=== PATIENT | male | born 1990 | race African-American/Black ===

== ENCOUNTER 2021-06-10 12:44 | Emergency (ER) | payer MEDICAID, OTHER ==
[~2021-06-10] VITALS: Ht 188 cm; Wt 90.7 kg
[2021-06-10 12:49] VITALS: BP 150/110
--- NOTE | 2021-06-10 12:56 | NUR ---
PT W/C ASSISTED TO BED 9.
--- NOTE | 2021-06-10 12:59 | NUR ---
30 y/o M BIB self from home c/o mid abdomen pain x 2 days with associated nausea and vomiting. Patient A&Ox4, ambulatory, states symptoms worsen yesterday. Patient reports mid abdomen and epigastric pain 10/10, aching/constant, non-radiating worsening after meals. Mid abdomen tenderness noted. Alleviates with position changes. Pt denies fever, chills, dysuria, back pain, diarrhea, constipation, urinary symptoms. States seeing PCP tomorrow and colonoscopy scheduled on 06/25/21. Reports Haldol and Benadryl at 0700 with temporary relief. Bed locked in lowest position, side rails x 1. PMH: Denies "undiagnosed" Meds: haldol, benadryl Allergies: PCN Sx: G-tube 2019
[2021-06-10] MEDS ORDERED: MORPHINE SULFATE 4 MG/ML SYR IVP ONE (13:20)
[2021-06-10] MEDS ORDERED: ONDANSETRON 4 MG/2 ML VIAL IVP ONE (13:20)
--- NOTE | 2021-06-10 13:43 | NUR ---
LAB AT BEDSIDE
[2021-06-10 13:52] LABS: BASOPHILS % (AUTO) 0.3 % (0.0-2.0); EOSINOPHILS % (AUTO) 0.1 % (0.0-4.0); HEMOGLOBIN 14.9 g/dL (12.0-18.0); LYMPHOCYTES # (AUTO) 1.2 K/uL (2.0-11.5); LYMPHOCYTES % (AUTO) 16.6 % (20.5-51.1); MEAN CORPUSCULAR HEMOGLOBIN 32 pg (27-31); MEAN CORPUSCULAR HGB CONC 35 g/dL (33-37); MEAN CORPUSCULAR VOLUME 91.1 fL (80-94); MONOCYTES # (AUTO) 0.4 K/uL (0.8-1.0); NEUTROPHILS # (AUTO) 5.4 K/uL (1.8-7.7); PLATELET COUNT (AUTO) 246 K/uL (140-450); RED BLOOD CELL COUNT(AUTO) 4.73 MIL/uL (4.20-6.10); RED CELL DISTRIBUTION WIDTH 13.4 % (11.6-13.7)
--- NOTE | 2021-06-10 13:55 | NUR ---
Dr. Waters made aware pain remains. New orders to be placed.
--- NOTE | 2021-06-10 13:58 | NUR ---
Patient transported to CT by WC
[2021-06-10] MEDS ORDERED: DICYCLOMINE HCL LIQUID 20 MG, ALUMINUM HYD/MAG/SIMETHICONE 30 ML, LIDOCAINE VISCOUS 2% ... PO ONE ×3 (14:00)
[2021-06-10] MEDS ORDERED: ALUMINUM HYD/MAG/SIMETHICONE 30 ML UDC ONE (14:00)
[2021-06-10] MEDS ORDERED: DICYCLOMINE HCL LIQUID 10 MG/5 ML UDC ONE (14:00)
--- NOTE | 2021-06-10 14:08 | NUR ---
PT BACK FROM CT WITH WHEELCHAIR
[2021-06-10 14:15] LABS: ANION GAP 11.9 (8-16); CARBON DIOXIDE 25.5 mmol/L (21-32); POTASSIUM 3.4 mmol/L (3.5-5.1); TOTAL BILIRUBIN 0.4 mg/dL (0.0-1.0)
--- NOTE | 2021-06-10 14:45 | NUR ---
Patient states pain at 10/10. Dr. Mcnally made aware.
[2021-06-10] MEDS ORDERED: diphenhydrAMINE 50 MG/ML VIAL IVP ONE (14:50)
[2021-06-10] MEDS ORDERED: HALOPERIDOL IM 5 MG/ML VIAL IM ONE (14:50)
[2021-06-10 14:59] VITALS: BP 125/90
[2021-06-10 15:01] LABS: APPEARANCE,URINE SL CLOUDY (CLEAR); BILIRUBIN,URINE NEGATIVE (NEGATIVE); BLOOD, URINE NEGATIVE (NEGATIVE); COLOR,URINE YELLOW (YELLOW); LEUKOCYTE ESTERASE ,URINE NEGATIVE (NEGATIVE); NITRITE, URINE NEGATIVE (NEGATIVE); PH,URINE 8.5 (5.0-9.0); UGLUCOSE NEGATIVE (NEGATIVE)
--- NOTE | 2021-06-10 15:54 | NUR ---
Patient reports + relief to pain. 0/10 at this time denies nausea. VSS.
--- NOTE | 2021-06-10 15:58 | NUR ---
IV removed, catheter intact and site benign. Applied folded 4x4 gauze and tape to stop bleeding.
--- NOTE | 2021-06-10 15:59 | NUR ---
Patient discharged with v/s stable. Written and verbal after care instructions given and explained. Patient verbalized understanding. Ambulatory with steady gait. All questions addressed prior to discharge. Advised to follow up with PMD. CT scan and blood work results provided.
== END 2021-06-10 15:59 | disposition home or self-care (01) ==
LOC: MED 12:44
DX: R11.15 Cyclical vomiting syndrome unrelated to migraine (principal); F12.90 Cannabis use, unspecified, uncomplicated; Z98.890 Other specified postprocedural states; Z88.0 Allergy status to penicillin
CPT/HCPCS: 36415; 74176; 80053; 81003; 83690; 85025; 96372; 96374; 96375; 99285; J1200; J1630; J2270; J2405

== ENCOUNTER 2021-06-12 06:03 | Emergency (ER) | payer MEDICAID ==
[~2021-06-12] VITALS: Ht 188 cm; Wt 92.5 kg
[2021-06-12 06:13] VITALS: BP 113/77
--- NOTE | 2021-06-12 06:15 | NUR ---
PT AMBULATED TO BED #9
[2021-06-12] MEDS ORDERED: MORPHINE SULFATE 4 MG/ML SYR IVP ONE (06:30)
[2021-06-12] MEDS ORDERED: METOCLOPRAMIDE 10 MG/2 ML INJ VIAL IVP ONE (06:30)
[2021-06-12] MEDS ORDERED: diphenhydrAMINE 50 MG/ML VIAL IVP ONE (06:30)
[2021-06-12 07:19] LABS: BASOPHILS % (AUTO) 0.4 % (0.0-2.0); EOSINOPHILS % (AUTO) 0.2 % (0.0-4.0); HEMATOCRIT 45.6 % (36-52); HEMOGLOBIN 15.7 g/dL (12.0-18.0); LYMPHOCYTES # (AUTO) 1.8 K/uL (2.0-11.5); LYMPHOCYTES % (AUTO) 21.8 % (20.5-51.1); MEAN CORPUSCULAR HEMOGLOBIN 32 pg (27-31); MEAN CORPUSCULAR HGB CONC 34 g/dL (33-37); MEAN CORPUSCULAR VOLUME 91.6 fL (80-94); MONOCYTES # (AUTO) 0.4 K/uL (0.8-1.0); MONOCYTES % (AUTO) 5.3 % (1.7-9.3); NEUTROPHILS # (AUTO) 5.8 K/uL (1.8-7.7); NEUTROPHILS % (AUTO) 72.3 % (42.2-75.2); PLATELET COUNT (AUTO) 258 K/uL (140-450); RED BLOOD CELL COUNT(AUTO) 4.98 MIL/uL (4.20-6.10); RED CELL DISTRIBUTION WIDTH 13.4 % (11.6-13.7); WHITE BLOOD COUNT (AUTO) 8.1 K/uL (4.8-10.8)
--- NOTE | 2021-06-12 07:20 | NUR ---
RECEIVED REPORT FROM ELISA MARLOW. TRANSFER OF CARE AT THIS TIME.
--- NOTE | 2021-06-12 07:30 | NUR ---
PT STATES HE IS UNABLE TO PROVIDE UA SAMPLE AT THIS TIME, H20 PROVIDED, URINAL AT BEDSIDE. JANED MADE AWARE.
[2021-06-12] MEDS ORDERED: diphenhydrAMINE 50 MG/ML VIAL IM ONE (07:35)
[2021-06-12] MEDS ORDERED: METOCLOPRAMIDE 10 MG/2 ML INJ VIAL IM ONE (07:35)
[2021-06-12] MEDS ORDERED: MORPHINE SULFATE 4 MG/ML SYR IM ONE (07:35)
[2021-06-12] MEDS ORDERED: MORPHINE SULFATE 2 MG/ML SYR ONE (07:36)
[2021-06-12 07:53] LABS: ALBUMIN 4.1 g/dL (3.4-5.0); ANION GAP 13.4 (8-16); CARBON DIOXIDE 25.4 mmol/L (21-32); CREATININE 1.2 mg/dL (0.6-1.3); POTASSIUM 3.8 mmol/L (3.5-5.1); TOTAL BILIRUBIN 0.4 mg/dL (0.0-1.0)
[2021-06-12] MEDS ORDERED: MAG355OR2 PO (08:28)
[2021-06-12] MEDS ORDERED: ONDA-188 PO (08:28)
--- NOTE | 2021-06-12 08:34 | NUR ---
PER ERMD CANCEL UDS. D/C PT.
[2021-06-12 08:44] VITALS: BP 124/87
--- NOTE | 2021-06-12 08:44 | NUR ---
Patient discharged with v/s stable. 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 Patient alert, oriented and verbalized understanding of instructions. Ambulatory with steady gait. All questions addressed prior to discharge. ID band removed. Patient advised to follow up with PMD. Rx of MAALOX AND ZOFRAN given. Patient educated on indication of medication including possible reaction and side effects. Opportunity to ask questions provided and answered.
== END 2021-06-12 08:44 | disposition home or self-care (01) ==
LOC: MED 06:03
DX: R11.15 Cyclical vomiting syndrome unrelated to migraine (principal); R10.13 Epigastric pain; F12.90 Cannabis use, unspecified, uncomplicated; Z88.0 Allergy status to penicillin; Z79.899 Other long term (current) drug therapy
CPT/HCPCS: 36415; 80053; 83690; 85025; 96372; 99284; J1200; J2270; J2765

== ENCOUNTER 2021-06-19 05:28 | Emergency (ER) | payer MEDICAID ==
[~2021-06-19] VITALS: Ht 188 cm; Wt 93.0 kg
[~2021-06-19 05:28] MED LIST: MAG355OR2 PO; ONDA-188 PO
[2021-06-19 05:34] VITALS: BP 111/63
--- NOTE | 2021-06-19 05:42 | NUR ---
30 Y/O MALE BIBS, C/O ABD PAIN AND NAUSEA SINCE 0200. PT STATES HE HAS EPIGASTRIC PAIN 11/24 THAT WOKE HIM FROM SLEEP, COMES AND GOES. PT STATES HE VOMITED, NO BLOOD IN VOMIT, DENIES DIARRHEA. PT AMBULATED TO BED W/O ASSISTANCE; UNLABORED RBEATHING AND SPEAKING IN FULL SENTENCES. DENIES PMH/RX NKA
--- NOTE | 2021-06-19 05:42 | NUR ---
PT AMBULATED TO BED 11
[2021-06-19] MEDS ORDERED: ONDANSETRON 4 MG/2 ML VIAL IVP ONE (05:50)
[2021-06-19] MEDS ORDERED: KETOROLAC 30 MG/ML VIAL IVP ONE (05:50)
[2021-06-19] MEDS ORDERED: NACL 0.9% 1,000 ML IV ONE (05:50)
[2021-06-19] MEDS ORDERED: diphenhydrAMINE 50 MG/ML VIAL IVP ONE (06:00)
--- NOTE | 2021-06-19 06:09 | NUR ---
blood obtained and walked to lab
--- NOTE | 2021-06-19 06:15 | NUR ---
PT NOW NOTES HIS PAIN AT 5/10, NO LONGER WRITHING IN BED.
[2021-06-19] MEDS ORDERED: ONDA-188 SL (06:33)
[2021-06-19 07:11] VITALS: BP 111/63
--- NOTE | 2021-06-19 07:14 | NUR ---
Patient discharged with v/s stable. Written and verbal after care instructions given and explained. Patient alert, oriented and verbalized understanding of instructions. Ambulatory with steady gait. All questions addressed prior to discharge. ID band removed. Patient advised to follow up with PMD. Rx of ZOFRAN given. Patient educated on indication of medication including possible reaction and side effects. Opportunity to ask questions provided and answered. A/OX4, VSS, AMBULATORY, UNLABORED BREATHING, AND CALM DEMEANOR.
== END 2021-06-19 07:11 | disposition home or self-care (01) ==
LOC: MED 05:28
DX: R11.2 Nausea with vomiting, unspecified (principal); R10.84 Generalized abdominal pain; Z79.899 Other long term (current) drug therapy; Z88.0 Allergy status to penicillin
CPT/HCPCS: 96361; 96374; 96375; 99284; J1200; J1885; J2405; J7030

== ENCOUNTER 2021-06-23 13:02 | Emergency (ER) | payer MEDICAID ==
[~2021-06-23] VITALS: Ht 188 cm; Wt 89.8 kg
[~2021-06-23 13:02] MED LIST changes: +ONDA-188 SL
[2021-06-23 13:12] VITALS: BP 124/81
[2021-06-23] MEDS ORDERED: ONDANSETRON 4 MG TAB PO ONE (14:55)
--- NOTE | 2021-06-23 16:24 | NUR ---
PATIENT LEFT WITHOUT BEING SEEN BY DR. PONCE. NO FURTHER CARE PROVIDED FOR PATIENT.
--- NOTE | 2021-06-23 16:24 | NUR ---
Made call out to lobby and in ER waiting room/outside area - no answer. Patient left without being seen by physician.
== END 2021-06-23 16:24 | disposition left against medical advice (07) ==
LOC: MED 13:02
DX: R10.9 Unspecified abdominal pain (principal); R11.10 Vomiting, unspecified; Z53.21 Procedure and treatment not carried out due to patient leaving prior to being seen by health care provider; Z88.0 Allergy status to penicillin

== ENCOUNTER 2021-06-25 10:15 | Emergency (ER) | payer MEDICAID ==
[~2021-06-25] VITALS: Ht 188 cm; Wt 93.0 kg
[2021-06-25 08:58] LABS: BASOPHILS % (AUTO) 0.4 % (0.0-2.0); EOSINOPHILS % (AUTO) 0.5 % (0.0-4.0); HEMATOCRIT 42.6 % (36-52); HEMOGLOBIN 14.6 g/dL (12.0-18.0); LYMPHOCYTES # (AUTO) 1.5 K/uL (2.0-11.5); LYMPHOCYTES % (AUTO) 18.8 % (20.5-51.1); MEAN CORPUSCULAR HEMOGLOBIN 31 pg (27-31); MEAN CORPUSCULAR HGB CONC 34 g/dL (33-37); MEAN CORPUSCULAR VOLUME 91.5 fL (80-94); MONOCYTES # (AUTO) 0.4 K/uL (0.8-1.0); MONOCYTES % (AUTO) 5.4 % (1.7-9.3); NEUTROPHILS % (AUTO) 74.9 % (42.2-75.2); PLATELET COUNT (AUTO) 241 K/uL (140-450); RED BLOOD CELL COUNT(AUTO) 4.66 MIL/uL (4.20-6.10); RED CELL DISTRIBUTION WIDTH 13.1 % (11.6-13.7)
[2021-06-25 09:21] LABS: ALBUMIN 4.3 g/dL (3.4-5.0); ANION GAP 14.3 (8-16); CARBON DIOXIDE 26.2 mmol/L (21-32); CREATININE 1.2 mg/dL (0.6-1.3); POTASSIUM 3.5 mmol/L (3.5-5.1); TOTAL BILIRUBIN 0.3 mg/dL (0.0-1.0)
[2021-06-25 10:17] VITALS: BP 152/103
[2021-06-25] MEDS ORDERED: PANTOPRAZOLE 40 MG INJ VIAL IVP ONE (10:25)
[2021-06-25] MEDS ORDERED: ONDANSETRON 4 MG/2 ML VIAL IVP ONE (10:25)
[2021-06-25] MEDS ORDERED: MORPHINE SULFATE 4 MG/ML SYR IVP ONE (10:25)
--- NOTE | 2021-06-25 10:27 | NUR ---
30 YO MALE IRVING SORTO FROM OR, C/O 11/24 ABD PAIN NAUSEA AND VOMITING, NOTED WITH BLOOD IN URINE, 22 G IN RIGHT HAND, OR STATES THEY DIDNT GIVE ANY MEDICATION. STATED THAT THEY WERE SUPPOSED TO PERFORM A COLONOSCOPY HOWEVER PT WAS IN TOO MUCH PAIN. ALLERGY": PCN PMH: CYCLIC VOMITING
--- NOTE | 2021-06-25 10:58 | NUR ---
DR RIVERA MADE AWARE OF MEDICATION NOT WORKING, PT CONTINUES WITH ABD PAIN, N/D WITH BLOOD
[2021-06-25] MEDS ORDERED: diphenhydrAMINE 50 MG/ML VIAL IVP ONE (11:00)
[2021-06-25] MEDS ORDERED: HALOPERIDOL IM 5 MG/ML VIAL IVP ONE (11:00)
--- NOTE | 2021-06-25 11:42 | NUR ---
PT ASLEEP AT THIS TIME, FAMILY AT BEDSIDE, CN SPOKE TO THEM
--- NOTE | 2021-06-25 11:52 | NUR ---
HONING MACHINE OPERATOR SEMIAUTOMATIC SPOKE TO PT FAMILY
--- NOTE | 2021-06-25 12:15 | NUR ---
Patient does not wish to proceed with medical care recommended by DR RIVERA. Patient given information related to possible complications, up to and including , which could occur as a result of leaving hospital at this time. Patient verbalizes understanding of risks involved leaving against medical advice. Patient has signed AMA form. IV REMOVED, PT IS AMBULATORY,
== END 2021-06-25 12:15 | disposition left against medical advice (07) ==
LOC: MED 10:15 → EDSTATUS 11:00 → EDUNIT# 11:00 → MED 12:15
DX: K92.0 Hematemesis (principal); R10.84 Generalized abdominal pain; F12.90 Cannabis use, unspecified, uncomplicated; Z88.0 Allergy status to penicillin; Z72.89 Other problems related to lifestyle; Z20.822 Contact with and (suspected) exposure to COVID-19
CPT/HCPCS: 36415; 74176; 76705; 80053; 83690; 85025; 87426; 96374; 96375; 99284; C8924; C9113; J1200; J1630; J2270; J2405

== ENCOUNTER 2021-07-24 06:55 | Emergency (ER) | payer MEDICAID ==
[~2021-07-24] VITALS: Ht 188 cm; Wt 92.1 kg
[2021-07-24 07:03] VITALS: BP 110/90
== END 2021-07-24 07:29 | disposition home or self-care (01) ==
LOC: MED 06:55
DX: R10.13 Epigastric pain (principal); R19.7 Diarrhea, unspecified
CPT/HCPCS: 99281

== ENCOUNTER 2021-07-31 22:42 | Emergency (ER) | payer MEDICAID ==
[~2021-07-31] VITALS: Ht 188 cm; Wt 90.7 kg
[2021-07-31 22:54] VITALS: BP 156/80
--- NOTE | 2021-08-01 00:22 | NUR ---
PT AMBULATED TO BED #6
--- NOTE | 2021-08-01 00:24 | NUR ---
ABD PAIN SINCE THIS MORNING. PAIN IN ALL 4 QUADRANTS. PT HAS THROWN UP SPIT, DENIES D/F/COUGH. PT STATES PAIN 10/10. PT TOOK HALDOL AND BENADRYL BUT IT DID NOT WORK. SKIN IS PINK/WARM/DRY; AAOX4 WITH EVEN AND STEADY GAIT; HR EVEN AND REGULAR; PATIENT STATES PAIN OF 0/10 AT THIS TIME; VSS; PT GUARDING STOMACH. PT IS TOSSING AND TURNING IN BED PMH: G-TUBE D/T INTUBATION. PMH:NONE RX: HALDOL, BENADRYL.
--- NOTE | 2021-08-01 00:26 | NUR ---
Dr. Waters examining patient.
[2021-08-01] MEDS ORDERED: NACL 0.9% 1,000 ML IV ONE (00:40)
[2021-08-01] MEDS ORDERED: HALOPERIDOL IM 5 MG/ML VIAL IM ONE (00:40)
[2021-08-01] MEDS ORDERED: MORPHINE SULFATE 4 MG/ML SYR IVP ONE (00:40)
[2021-08-01] MEDS ORDERED: diphenhydrAMINE 50 MG/ML VIAL IVP ONE (00:40)
[2021-08-01 00:46] LABS: BASOPHILS % (AUTO) 0.6 % (0.0-2.0); EOSINOPHILS % (AUTO) 0.5 % (0.0-4.0); HEMATOCRIT 41.3 % (36-52); HEMOGLOBIN 14.5 g/dL (12.0-18.0); LYMPHOCYTES # (AUTO) 1.7 K/uL (2.0-11.5); MEAN CORPUSCULAR HEMOGLOBIN 32 pg (27-31); MEAN CORPUSCULAR HGB CONC 35 g/dL (33-37); MEAN CORPUSCULAR VOLUME 90.2 fL (80-94); MONOCYTES # (AUTO) 0.5 K/uL (0.8-1.0); MONOCYTES % (AUTO) 6.3 % (1.7-9.3); NEUTROPHILS % (AUTO) 69.6 % (42.2-75.2); PLATELET COUNT (AUTO) 268 K/uL (140-450); RED BLOOD CELL COUNT(AUTO) 4.57 MIL/uL (4.20-6.10); RED CELL DISTRIBUTION WIDTH 13.4 % (11.6-13.7); WHITE BLOOD COUNT (AUTO) 7.2 K/uL (4.8-10.8)
[2021-08-01 01:06] LABS: ALBUMIN 4.2 g/dL (3.4-5.0); ANION GAP 12.4 (8-16); CARBON DIOXIDE 26.4 mmol/L (21-32); POTASSIUM 3.8 mmol/L (3.5-5.1); TOTAL BILIRUBIN 0.6 mg/dL (0.0-1.0)
--- NOTE | 2021-08-01 01:45 | NUR ---
ATTEMPTED URINE COLLECTION. PROVIDED PT URINAL. PT IS VOLUNTARY NOT ANSWERING TO QUESTIONS OR COMMANDS. PUT IV FLUIDS ON PUMP TO HELP PT GET FLUIDS TIMELY
[2021-08-01] MEDS ORDERED: BEN10 PO (02:18)
--- NOTE | 2021-08-01 02:19 | NUR ---
HANDED UDS TO OG
[2021-08-01 02:49] LABS: BARBITURATE, URINE NEGATIVE ng/ml (NEG <=200); BENZODIAZEPINE, URINE NEGATIVE ng/mL (NEG <=200); CANNABINOID, URINE POSITIVE ng/mL (NEG <=50); COCAINE, URINE NEGATIVE ng/mL (NEG <=300); PHENCYCLIDINE SCREEN,URINE NEGATIVE ng/mL (NEG <=25)
[2021-08-01 02:50] LABS: OPIATE, URINE POSITIVE ng/mL (NEG <=2000)
[2021-08-01 02:56] VITALS: BP 144/55
--- NOTE | 2021-08-01 02:56 | NUR ---
Patient discharged with v/s stable. Written and verbal after care instructions given and explained. Patient alert, oriented and verbalized understanding of instructions. Ambulatory with steady gait. All questions addressed prior to discharge. ID band removed. Patient advised to follow up with PMD. Rx of bentyl given. Opportunity to ask questions provided and answered.
--- NOTE | 2021-08-01 03:04 | NUR ---
The patient's care was reviewed and supervised by Irma Tenorio RN.
[2021-08-02] MEDS ORDERED: BEN10 PO (12:54)
[2021-08-02] MEDS ORDERED: FAMO-90 PO (12:55)
[2021-08-02] MEDS ORDERED: ONDA-188 SL (12:56)
[2021-08-03] MEDS ORDERED: PANT40EC PO (12:33)
[2021-08-03] MEDS ORDERED: SUCR1TAB35 PO (13:08)
== END 2021-08-01 02:56 | disposition home or self-care (01) ==
LOC: MED 22:42
DX: R10.84 Generalized abdominal pain (principal); R11.2 Nausea with vomiting, unspecified; Z79.899 Other long term (current) drug therapy; Z98.890 Other specified postprocedural states; Z88.0 Allergy status to penicillin
CPT/HCPCS: 36415; 80053; 80305; 83690; 85025; 96361; 96372; 96374; 96375; 99285; J1200; J1630; J2270; J7030

== ENCOUNTER 2021-08-02 09:06 | Emergency (ER) | payer MEDICAID ==
[~2021-08-02] VITALS: Ht 188 cm; Wt 81.2 kg
[~2021-08-02 09:06] MED LIST changes: +BEN10 PO
[2021-08-02 09:14] VITALS: BP 144/75
--- NOTE | 2021-08-02 09:20 | NUR ---
PT AMBULATED TO BED 09.
[2021-08-02] MEDS ORDERED: ONDANSETRON 4 MG/2 ML VIAL IVP ONE (09:30)
[2021-08-02] MEDS ORDERED: MORPHINE SULFATE 4 MG/ML SYR IVP ONE ×2 (09:30→10:20)
[2021-08-02] MEDS ORDERED: NACL 0.9% 1,000 ML IV ONE (09:30)
--- NOTE | 2021-08-02 09:30 | NUR ---
PT C/O CHEST PAIN AND ABDOMINAL PAIN WITH NAUSEA SINCE 299. NSR ON MONITOR. IV INSERTED PENDING FURTHER ORDERS.
--- NOTE | 2021-08-02 09:47 | NUR ---
RADIOLOGY AT BEDSIDE TO PERFORM CXR
[2021-08-02 10:03] LABS: BASOPHILS % (AUTO) 0.5 % (0.0-2.0); EOSINOPHILS % (AUTO) 0.3 % (0.0-4.0); HEMOGLOBIN 14.5 g/dL (12.0-18.0); LYMPHOCYTES % (AUTO) 13.7 % (20.5-51.1); MEAN CORPUSCULAR HEMOGLOBIN 31 pg (27-31); MEAN CORPUSCULAR HGB CONC 35 g/dL (33-37); MEAN CORPUSCULAR VOLUME 90.5 fL (80-94); MONOCYTES # (AUTO) 0.3 K/uL (0.8-1.0); MONOCYTES % (AUTO) 4.9 % (1.7-9.3); NEUTROPHILS # (AUTO) 5.6 K/uL (1.8-7.7); NEUTROPHILS % (AUTO) 80.6 % (42.2-75.2); PLATELET COUNT (AUTO) 255 K/uL (140-450); RED BLOOD CELL COUNT(AUTO) 4.64 MIL/uL (4.20-6.10); RED CELL DISTRIBUTION WIDTH 13.7 % (11.6-13.7)
[2021-08-02 10:15] LABS: ANION GAP 10.8 (8-16); ASPARTATE AMINOTRANSFERASE 27 U/L (15-37); CARBON DIOXIDE 28.1 mmol/L (21-32); CHLORIDE 103 mmol/L (98-107); CREATININE 1.1 mg/dL (0.6-1.3); GFR ARICAN-AMERICAN 99 mL/min (>90); GLUCOSE 101 mg/dL (74-106); LIPASE 399 U/L (73-393); POTASSIUM 3.9 mmol/L (3.5-5.1); SODIUM SERUM 138 mmol/L (136-145); TOTAL BILIRUBIN 0.5 mg/dL (0.0-1.0); UREA NITROGEN, BLOOD 13 mg/dL (7-18)
[2021-08-02] MEDS ORDERED: DICYCLOMINE HCL LIQUID 20 MG, ALUMINUM HYD/MAG/SIMETHICONE 30 ML, LIDOCAINE VISCOUS 2% ... PO ONE ×3 (10:20)
[2021-08-02] MEDS ORDERED: DICYCLOMINE HCL LIQUID 10 MG/5 ML UDC ONE (10:26)
[2021-08-02] MEDS ORDERED: ALUMINUM HYD/MAG/SIMETHICONE 30 ML UDC ONE (10:26)
[2021-08-02 11:33] VITALS: BP 122/79
[2021-08-02] MEDS ORDERED: HALOPERIDOL IM 5 MG/ML VIAL IM ONE (11:45)
[2021-08-02] MEDS ORDERED: BEN10 PO (12:54)
[2021-08-02] MEDS ORDERED: FAMO-90 PO (12:55)
[2021-08-02] MEDS ORDERED: ONDA-188 SL (12:56)
--- NOTE | 2021-08-02 13:31 | NUR ---
Patient discharged with v/s stable. Written and verbal after care instructions given and explained. Patient verbalized understanding. Ambulatory with steady gait. All questions addressed prior to discharge. Advised to follow up with PMD.
[2021-08-03] MEDS ORDERED: PANT40EC PO (12:33)
[2021-08-03] MEDS ORDERED: SUCR1TAB35 PO (13:08)
== END 2021-08-02 13:31 | disposition home or self-care (01) ==
LOC: MED 09:06
DX: K29.70 Gastritis, unspecified, without bleeding (principal); R07.89 Other chest pain; R00.0 Tachycardia, unspecified; Z86.718 Personal history of other venous thrombosis and embolism; Z79.899 Other long term (current) drug therapy; Z88.0 Allergy status to penicillin
CPT/HCPCS: 36415; 71045; 80053; 83690; 84484; 85025; 85379; 93005; 96361; 96372; 96374; 96375; 96376; 99285; J1630; J2270; J2405; J7030

== ENCOUNTER 2021-08-07 23:13 | Emergency (ER) | payer MEDICAID ==
[~2021-08-07] VITALS: Ht 188 cm; Wt 87.5 kg
[~2021-08-07 23:13] MED LIST changes: +FAMO-90 PO; +PANT40EC PO; +SUCR1TAB35 PO
[2021-08-07 23:39] VITALS: BP 137/77
--- NOTE | 2021-08-08 01:05 | NUR ---
PT CALLED IN LOBBY AND OUTSIDE WITH NO ANSWER.
--- NOTE | 2021-08-08 01:24 | NUR ---
PT CALLED IN LOBBY AND OUTSIDE WITH NO ANSWER. PATIENT LEFT WITHOUT BEING SEEN BY DR. LUCIANO. NO FURTHER CARE PROVIDED FOR PATIENT.
[2021-08-08] MEDS ORDERED: DICY10CA14 PO (16:17)
[2021-08-08] MEDS ORDERED: ALUM355S5 PO (16:17)
== END 2021-08-08 01:24 | disposition left against medical advice (07) ==
LOC: MED 23:13
DX: R10.9 Unspecified abdominal pain (principal); Z53.21 Procedure and treatment not carried out due to patient leaving prior to being seen by health care provider

== ENCOUNTER 2021-08-08 14:04 | Emergency (ER) | payer MEDICAID ==
[~2021-08-08] VITALS: Ht 188 cm; Wt 87.5 kg
[2021-08-08 14:17] VITALS: BP 149/83
--- NOTE | 2021-08-08 14:30 | NUR ---
31 y/o male bib self, c/o n&v with abd pain for 2 days. denies dysuria, hematuria, diarrhea or constipation. skin is pink/warm/dry. a&o x4 with even and steady gait. lungs clear bl, heart rate even and regular. pt denies dysuria, hematuria, urinary frequency or retention, or anyone sick in the household with the same symptoms. pt denies any fever, cp, sob, or cough at this time. pt states pain is 10/10 at this time. abd flat/soft/tender/guarding, last bm yesterday normal, soft easy to pass. ermd made aware of pt. pmh: denies allergy: penicillin med: denies
[2021-08-08] MEDS ORDERED: ONDANSETRON 4 MG ODT PO ONE (14:40)
[2021-08-08] MEDS ORDERED: DICYCLOMINE HCL LIQUID 20 MG, ALUMINUM HYD/MAG/SIMETHICONE 30 ML, LIDOCAINE VISCOUS 2% ... PO ONE ×3 (14:40)
[2021-08-08] MEDS ORDERED: ALUMINUM HYD/MAG/SIMETHICONE 30 ML UDC ONE (15:02)
[2021-08-08] MEDS ORDERED: DICYCLOMINE HCL LIQUID 10 MG/5 ML UDC ONE (15:02)
[2021-08-08] MEDS ORDERED: METOCLOPRAMIDE 10 MG/2 ML INJ VIAL IVP ONE (15:25)
--- NOTE | 2021-08-08 16:09 | NUR ---
PT AMBULATED TO ER BED 1
--- NOTE | 2021-08-08 16:15 | NUR ---
DR JUARES AT BEDSIDE FOR ULTRASOUND IV, STATED HE FEELS BETTER AFTER PO MEDS, DOESNT WANT IV, BLOOD OR ANYMORE MEDS.
[2021-08-08] MEDS ORDERED: ALUM355S5 PO (16:17)
[2021-08-08] MEDS ORDERED: DICY10CA14 PO (16:17)
--- NOTE | 2021-08-08 16:44 | NUR ---
Patient discharged with v/s stable. Written and verbal after care instructions ABOUT HEARTBURN AND CANNABINOID HYPEREMESIS SYNDROME given and explained. Patient alert, oriented and verbalized understanding of instructions. Ambulatory with steady gait. All questions addressed prior to discharge. ID band removed. Patient advised to follow up with PMD. Rx of ADVANCED ANTACID LIQUID, DICYCLOMINE given. Patient educated on indication of medication including possible reaction and side effects. Opportunity to ask questions provided and answered.
== END 2021-08-08 16:44 | disposition home or self-care (01) ==
LOC: MED 14:04
DX: F12.188 Cannabis abuse with other cannabis-induced disorder (principal); R11.10 Vomiting, unspecified; R10.13 Epigastric pain; K21.9 Gastro-esophageal reflux disease without esophagitis; Z88.0 Allergy status to penicillin
CPT/HCPCS: 71045; 99283; Q0162

== ENCOUNTER 2021-08-27 08:00 | Emergency (ER) | payer MEDICAID ==
[~2021-08-27] VITALS: Ht 188 cm; Wt 87.5 kg
[~2021-08-27 08:00] MED LIST changes: +ALUM355S5 PO; +DICY10CA14 PO
[2021-08-27 08:09] VITALS: BP 152/113
--- NOTE | 2021-08-27 08:54 | NUR ---
DR GATES AT PT SIDE FOR FURTHER EVAL
--- NOTE | 2021-08-27 09:51 | NUR ---
ATTEMPTED TO BRING PT BACK, NOT FOUND IN LOBBY/OUTSIDE. CALLED PT, STATED HE LEFT. PATIENT ELOPED FROM FACILITY. DISCHARGE INSTRUCTIONS NOT GIVEN TO PATIENT. DR. GATES NOTIFIED.
== END 2021-08-27 09:51 | disposition left against medical advice (07) ==
LOC: MED 08:00
DX: R10.9 Unspecified abdominal pain (principal); K21.9 Gastro-esophageal reflux disease without esophagitis; F12.90 Cannabis use, unspecified, uncomplicated; Z88.0 Allergy status to penicillin
CPT/HCPCS: 99281

== ENCOUNTER 2021-09-16 07:42 | Emergency (ER) | payer MEDICAID ==
[~2021-09-16] VITALS: Ht 185.4 cm; Wt 88.0 kg
[2021-09-16 07:45] VITALS: BP 134/74
--- NOTE | 2021-09-16 07:49 | NUR ---
31 Y/O MALE C/O ABD PAIN 11/24 DESCRIBES CRAMPING, N/V X1DAY. PT STATES HE JUST "SMOKED WEED A FEW DAYS AGO". PMH: HYPEREMESIS CANNIBINOID SYNDROME, ANXIETY ALLERGIES: PCN
[2021-09-16] MEDS ORDERED: diphenhydrAMINE 50 MG/ML VIAL IVP ONE (07:55)
[2021-09-16] MEDS ORDERED: HALOPERIDOL IM 5 MG/ML VIAL IVP ONE (07:55)
[2021-09-16] MEDS ORDERED: NACL 0.9% 1,000 ML IV ONE (07:55)
[2021-09-16 08:21] LABS: BASOPHILS % (AUTO) 0.3 % (0.0-2.0); EOSINOPHILS % (AUTO) 0.1 % (0.0-4.0); LYMPHOCYTES # (AUTO) 0.7 K/uL (2.0-11.5); LYMPHOCYTES % (AUTO) 11.5 % (20.5-51.1); MEAN CORPUSCULAR HEMOGLOBIN 31 pg (27-31); MEAN CORPUSCULAR HGB CONC 34 g/dL (33-37); MEAN CORPUSCULAR VOLUME 91.6 fL (80-94); MONOCYTES # (AUTO) 0.2 K/uL (0.8-1.0); MONOCYTES % (AUTO) 3.3 % (1.7-9.3); NEUTROPHILS % (AUTO) 84.8 % (42.2-75.2); PLATELET COUNT (AUTO) 249 K/uL (140-450); RED CELL DISTRIBUTION WIDTH 13.4 % (11.6-13.7); WHITE BLOOD COUNT (AUTO) 5.9 K/uL (4.8-10.8)
[2021-09-16 08:29] LABS: ALBUMIN 4.6 g/dL (3.4-5.0); CARBON DIOXIDE 24.4 mmol/L (21-32); MAGNESIUM 1.7 mg/dL (1.8-2.4); POTASSIUM 3.4 mmol/L (3.5-5.1); TOTAL BILIRUBIN 0.7 mg/dL (0.0-1.0)
--- NOTE | 2021-09-16 08:30 | NUR ---
Patient appears to be resting comfortably in bed. Vital Signs within normal limits. Respirations even and unlabored.
[2021-09-16] MEDS ORDERED: ONDA-188 SL (10:08)
[2021-09-16 10:57] VITALS: BP 128/72
--- NOTE | 2021-09-16 10:57 | NUR ---
Patient discharged with v/s stable. Written and verbal after care instructions given and explained with teachback. Patient alert, oriented and verbalized understanding of instructions. Ambulatory with steady gait. All questions addressed prior to discharge. ID band removed. Patient advised to follow up with PMD. Rx of ZOFRAN given. Patient educated on indication of medication including possible reaction and side effects. Opportunity to ask questions provided and answered.
== END 2021-09-16 10:57 | disposition home or self-care (01) ==
LOC: MED 07:42
DX: R11.15 Cyclical vomiting syndrome unrelated to migraine (principal); K21.9 Gastro-esophageal reflux disease without esophagitis; F17.200 Nicotine dependence, unspecified, uncomplicated; Z88.0 Allergy status to penicillin; Z79.899 Other long term (current) drug therapy
CPT/HCPCS: 36415; 80053; 83690; 83735; 85025; 96361; 96374; 96375; 99284; J1200; J1630; J7030

== ENCOUNTER 2021-09-20 07:32 | Emergency (ER) | payer MEDICAID ==
[~2021-09-20] VITALS: Ht 188 cm; Wt 88.5 kg
[2021-09-20 07:35] VITALS: BP 155/109
--- NOTE | 2021-09-20 07:44 | NUR ---
PT AMBULATE WITH STEADY GAIT TO BED 8
--- NOTE | 2021-09-20 07:44 | NUR ---
DR RIVERA AT BEDSIDE FOR EVAL
[2021-09-20] MEDS ORDERED: FAMOTIDINE 20 MG/2 ML VIAL IVP ONE (07:45)
[2021-09-20] MEDS ORDERED: MORPHINE SULFATE 4 MG/ML SYR IVP ONE (07:45)
[2021-09-20] MEDS ORDERED: ONDANSETRON 4 MG/2 ML VIAL IVP ONE (07:45)
--- NOTE | 2021-09-20 08:13 | NUR ---
PT AMBULATORY TO RESTROOM W/ OBSERVATION
--- NOTE | 2021-09-20 08:15 | NUR ---
PT AMBULATORY BACK TO ROOM W/ OBSERVATION
--- NOTE | 2021-09-20 08:15 | NUR ---
31YO MALE PT C/O INCONSISTENT "CRAMPING/ACHING/BURNING" 11/24 EPIGASTRIC PAIN X1 WEEK. PT REPORTS TAKING COMPAZINE, BENADRYL AND ZOFRAN TODAY AT 0500 W/ NO RELIEF. PT IN VISIBLE DISTRESS , HYPERVENTALING AND GUARDING ABDOMEN. ABDOMEN PRESENTS FLAT, FIRM , TENDER TO TOUCH AND ACTIVE X4. PT DENIES RECENT CHANGE IN DIET. PT NAUSEOUS AND VOMITED X2, NO BLOOD NOTED. DENIES DIARRHEA, CHEST PAIN OR SOB. PT AAOX4 , SKIN DRY AND WARM TO TOUCH. PT CHANGED INTO GOWN AND ON OUTSIDE PLANT TECHNICIAN. BED AT LOWEST POSITION, BED RAIL UPX2. HX: DENIES ALLERGIES: PENICILLINS
--- NOTE | 2021-09-20 08:34 | NUR ---
PT RESTLESS ROCKING BACK AND FORTH IN BED W/ PRODUCITIVE HACKING. MADE AWARE
[2021-09-20] MEDS ORDERED: diphenhydrAMINE 50 MG/ML VIAL IVP ONE (08:35)
[2021-09-20] MEDS ORDERED: HALOPERIDOL IM 5 MG/ML VIAL IVP ONE (08:35)
[2021-09-20 08:39] LABS: BASOPHILS % (AUTO) 0.4 % (0.0-2.0); EOSINOPHILS % (AUTO) 0.2 % (0.0-4.0); HEMATOCRIT 41.1 % (36-52); HEMOGLOBIN 14.1 g/dL (12.0-18.0); LYMPHOCYTES # (AUTO) 1.4 K/uL (2.0-11.5); LYMPHOCYTES % (AUTO) 22.4 % (20.5-51.1); MEAN CORPUSCULAR HEMOGLOBIN 31 pg (27-31); MEAN CORPUSCULAR HGB CONC 34 g/dL (33-37); MEAN CORPUSCULAR VOLUME 91.1 fL (80-94); MONOCYTES # (AUTO) 0.4 K/uL (0.8-1.0); MONOCYTES % (AUTO) 6.8 % (1.7-9.3); NEUTROPHILS # (AUTO) 4.3 K/uL (1.8-7.7); NEUTROPHILS % (AUTO) 70.2 % (42.2-75.2); PLATELET COUNT (AUTO) 238 K/uL (140-450); RED BLOOD CELL COUNT(AUTO) 4.52 MIL/uL (4.20-6.10); RED CELL DISTRIBUTION WIDTH 13.2 % (11.6-13.7); WHITE BLOOD COUNT (AUTO) 6.1 K/uL (4.8-10.8)
--- NOTE | 2021-09-20 09:06 | NUR ---
PT AT REST AND SLEEPING. RESPIRATIONS EVEN AND UNLABORED
[2021-09-20 09:07] LABS: CARBON DIOXIDE 27.4 mmol/L (21-32); CREATININE 1.5 mg/dL (0.6-1.3); POTASSIUM 3.4 mmol/L (3.5-5.1); TOTAL BILIRUBIN 0.5 mg/dL (0.0-1.0)
[2021-09-20 12:24] VITALS: BP 138/85
== END 2021-09-20 12:23 | disposition home or self-care (01) ==
LOC: MED 07:32
DX: R11.10 Vomiting, unspecified (principal); K21.9 Gastro-esophageal reflux disease without esophagitis; F17.200 Nicotine dependence, unspecified, uncomplicated; Z88.0 Allergy status to penicillin; Z98.890 Other specified postprocedural states
CPT/HCPCS: 36415; 80053; 81002; 83690; 85025; 96374; 96375; 99285; J1200; J1630; J2270; J2405; J3490

== ENCOUNTER 2021-09-21 05:45 | Emergency (ER) | payer MEDICAID ==
[~2021-09-21] VITALS: Ht 188 cm; Wt 88.5 kg
[2021-09-21 05:51] VITALS: BP 144/99
--- NOTE | 2021-09-21 05:56 | NUR ---
PT TAKEN TO BED 12
--- NOTE | 2021-09-21 06:02 | NUR ---
31 Y/O MALE BIBS FROM HOME, C/O abdominal pain x today. Patient reported, had abdominal pain today. DENIES N/V/D, COUGH, FEVER, CP, OR SOB. SKIN IS PINK/WAR/DRY. A/OX4, GCS-15; UNLABORED BREATHING AND SPEAKING IN FULL SENTENCES; AMBULATORY W/O ASSISTANCE. PMHx: DENIES
--- NOTE | 2021-09-21 06:04 | NUR ---
ERMD AT BEDSIDE EXAMINING PT
[2021-09-21] MEDS ORDERED: METOCLOPRAMIDE 10 MG/2 ML INJ VIAL IM ONE (06:10)
--- NOTE | 2021-09-21 07:12 | NUR ---
Pt report given to pascale cobb and jessica estes. Transfer of care at this time.
--- NOTE | 2021-09-21 07:13 | NUR ---
Report received from ELISA Guardado. Transfer of care at this time.
[2021-09-21 07:33] VITALS: BP 144/99
--- NOTE | 2021-09-21 07:33 | NUR ---
PATIENT ELOPED FROM FACILITY. DISCHARGE INSTRUCTIONS NOT GIVEN TO PATIENT. DR. Carpenter NOTIFIED.
== END 2021-09-21 07:33 | disposition left against medical advice (07) ==
LOC: MED 05:45
DX: R11.15 Cyclical vomiting syndrome unrelated to migraine (principal); R10.9 Unspecified abdominal pain; K21.9 Gastro-esophageal reflux disease without esophagitis; J45.909 Unspecified asthma, uncomplicated; F12.90 Cannabis use, unspecified, uncomplicated; Z79.899 Other long term (current) drug therapy; Z88.0 Allergy status to penicillin; Z98.890 Other specified postprocedural states
CPT/HCPCS: 96372; 99283; J2765; Q0163

== ENCOUNTER 2021-10-17 08:25 | Emergency (ER) | payer MEDICAID ==
[~2021-10-17] VITALS: Ht 188 cm; Wt 86.2 kg
[2021-10-17 08:53] VITALS: BP 132/82
[2021-10-17] MEDS ORDERED: ONDANSETRON 4 MG/2 ML VIAL IVP ONE (08:55)
[2021-10-17] MEDS ORDERED: NACL 0.9% 1,000 ML IV ONE ×2 (08:55)
[2021-10-17] MEDS ORDERED: KETOROLAC 30 MG/ML VIAL IVP ONE (08:55)
[2021-10-17] MEDS ORDERED: FAMOTIDINE 20 MG/2 ML VIAL IVP ONE (09:00)
[2021-10-17] MEDS ORDERED: HALOPERIDOL IM 5 MG/ML VIAL IM ONE (09:00)
[2021-10-17 09:26] LABS: BASOPHILS % (AUTO) 0.4 % (0.0-2.0); EOSINOPHILS % (AUTO) 0.3 % (0.0-4.0); HEMATOCRIT 42.4 % (36-52); HEMOGLOBIN 14.7 g/dL (12.0-18.0); LYMPHOCYTES # (AUTO) 1.3 K/uL (2.0-11.5); LYMPHOCYTES % (AUTO) 21.8 % (20.5-51.1); MEAN CORPUSCULAR HEMOGLOBIN 31 pg (27-31); MEAN CORPUSCULAR HGB CONC 35 g/dL (33-37); MEAN CORPUSCULAR VOLUME 90.7 fL (80-94); MONOCYTES # (AUTO) 0.2 K/uL (0.8-1.0); MONOCYTES % (AUTO) 3.9 % (1.7-9.3); NEUTROPHILS # (AUTO) 4.5 K/uL (1.8-7.7); NEUTROPHILS % (AUTO) 73.6 % (42.2-75.2); PLATELET COUNT (AUTO) 227 K/uL (140-450); RED BLOOD CELL COUNT(AUTO) 4.67 MIL/uL (4.20-6.10); RED CELL DISTRIBUTION WIDTH 12.9 % (11.6-13.7); WHITE BLOOD COUNT (AUTO) 6.1 K/uL (4.8-10.8)
[2021-10-17 09:31] LABS: ALBUMIN 4.1 g/dL (3.4-5.0); ANION GAP 12.6 (8-16); CARBON DIOXIDE 26.9 mmol/L (21-32); POTASSIUM 3.5 mmol/L (3.5-5.1); TOTAL BILIRUBIN 0.5 mg/dL (0.0-1.0)
[2021-10-17 09:31] LABS: BARBITURATE, URINE NEGATIVE ng/ml (NEG <=200); BENZODIAZEPINE, URINE NEGATIVE ng/mL (NEG <=200)
[2021-10-17 09:32] LABS: CANNABINOID, URINE POSITIVE ng/mL (NEG <=50); COCAINE, URINE NEGATIVE ng/mL (NEG <=300); OPIATE, URINE NEGATIVE ng/mL (NEG <=2000); PHENCYCLIDINE SCREEN,URINE NEGATIVE ng/mL (NEG <=25)
[2021-10-17] MEDS ORDERED: SUCR1TAB35 PO (10:32)
[2021-10-17] MEDS ORDERED: METO-485 PO (10:32)
[2021-10-17] MEDS ORDERED: PANT40EC PO (10:32)
[2021-10-17 10:45] VITALS: BP 149/55
[2021-10-18] MEDS ORDERED: PANT40EC PO (00:42)
== END 2021-10-17 10:48 | disposition home or self-care (01) ==
LOC: MED 08:25
DX: K29.70 Gastritis, unspecified, without bleeding (principal); R11.10 Vomiting, unspecified; I10 Essential (primary) hypertension; K21.9 Gastro-esophageal reflux disease without esophagitis; F12.90 Cannabis use, unspecified, uncomplicated; Z88.0 Allergy status to penicillin; Z98.890 Other specified postprocedural states; Z79.899 Other long term (current) drug therapy
CPT/HCPCS: 36415; 80053; 80305; 83690; 85025; 96361; 96374; 99284; J1630; J1885; J2405; J3490

== ENCOUNTER 2021-10-18 00:27 | Emergency (ER) | payer MEDICAID ==
[~2021-10-18] VITALS: Ht 188 cm; Wt 86.2 kg
[~2021-10-18 00:27] MED LIST changes: +METO-485 PO
[2021-10-18 00:31] VITALS: BP 129/87
--- NOTE | 2021-10-18 00:34 | NUR ---
pt to bed 11.
--- NOTE | 2021-10-18 00:38 | NUR ---
DR LUCIANO EXAMINING PT
[2021-10-18] MEDS ORDERED: ONDANSETRON 4 MG/2 ML VIAL IM ONE (00:40)
[2021-10-18] MEDS ORDERED: MORPHINE SULFATE 2 MG/ML SYR IM ONE (00:40)
[2021-10-18] MEDS ORDERED: ALUMINUM HYD/MAG/SIMETHICONE 30 ML, DICYCLOMINE HCL LIQUID 20 MG, LIDOCAINE VISCOUS 2% ... PO ONE ×3 (00:40)
[2021-10-18] MEDS ORDERED: PANT40EC PO (00:42)
[2021-10-18] MEDS ORDERED: ALUMINUM HYD/MAG/SIMETHICONE 30 ML UDC ONE (00:56)
[2021-10-18] MEDS ORDERED: DICYCLOMINE HCL LIQUID 10 MG/5 ML UDC ONE (00:57)
[2021-10-18 01:40] VITALS: BP 129/87
--- NOTE | 2021-10-18 01:40 | NUR ---
Patient discharged with v/s stable. Written and verbal after care instructions given and explained. Patient alert, oriented and verbalized understanding of instructions. Ambulatory with steady gait. All questions addressed prior to discharge. ID band removed. Patient advised to follow up with PMD. Rx of Protonix given. Patient educated on indication of medication including possible reaction and side effects. Opportunity to ask questions provided and answered.
== END 2021-10-18 01:40 | disposition home or self-care (01) ==
LOC: MED 00:27
DX: R10.13 Epigastric pain (principal); K21.9 Gastro-esophageal reflux disease without esophagitis; Z88.0 Allergy status to penicillin; Z79.899 Other long term (current) drug therapy
CPT/HCPCS: 96372; 99284; J2270; J2405

== ENCOUNTER 2021-10-18 20:33 | Emergency (ER) | payer MEDICAID ==
[~2021-10-18] VITALS: Ht 188 cm; Wt 86.2 kg
[2021-10-18 20:59] VITALS: BP 130/86
[2021-10-18 21:05] VITALS: BP 130/86
--- NOTE | 2021-10-18 21:12 | NUR ---
Blood for labwork drawn from left arm by scottybotomist. Patient tolerated well.
[2021-10-18 21:24] LABS: BASOPHILS % (AUTO) 0.2 % (0.0-2.0); HEMATOCRIT 40.9 % (36-52); HEMOGLOBIN 14.4 g/dL (12.0-18.0); LYMPHOCYTES # (AUTO) 0.9 K/uL (2.0-11.5); LYMPHOCYTES % (AUTO) 12.9 % (20.5-51.1); MEAN CORPUSCULAR HEMOGLOBIN 32 pg (27-31); MEAN CORPUSCULAR HGB CONC 35 g/dL (33-37); MEAN CORPUSCULAR VOLUME 89.7 fL (80-94); MONOCYTES # (AUTO) 0.4 K/uL (0.8-1.0); MONOCYTES % (AUTO) 6.1 % (1.7-9.3); NEUTROPHILS # (AUTO) 5.4 K/uL (1.8-7.7); NEUTROPHILS % (AUTO) 80.8 % (42.2-75.2); PLATELET COUNT (AUTO) 264 K/uL (140-450); RED BLOOD CELL COUNT(AUTO) 4.56 MIL/uL (4.20-6.10); RED CELL DISTRIBUTION WIDTH 13.2 % (11.6-13.7); WHITE BLOOD COUNT (AUTO) 6.7 K/uL (4.8-10.8)
[2021-10-18 21:37] LABS: ALBUMIN 4.4 g/dL (3.4-5.0); ANION GAP 16.8 (8-16); ASPARTATE AMINOTRANSFERASE 13 U/L (15-37); CARBON DIOXIDE 25.4 mmol/L (21-32); CHLORIDE 100 mmol/L (98-107); CREATININE 1.2 mg/dL (0.6-1.3); GFR ARICAN-AMERICAN 90 mL/min (>90); GLUCOSE 123 mg/dL (74-106); LIPASE 50 U/L (73-393); POTASSIUM 3.2 mmol/L (3.5-5.1); SODIUM SERUM 139 mmol/L (136-145); TOTAL BILIRUBIN 0.7 mg/dL (0.0-1.0); UREA NITROGEN, BLOOD 11 mg/dL (7-18)
--- NOTE | 2021-10-18 22:32 | NUR ---
Called patient, no show in lobby or outside.
--- NOTE | 2021-10-18 22:55 | NUR ---
PATIENT LEFT WITHOUT BEING SEEN BY DR. Waters. NO FURTHER CARE PROVIDED FOR PATIENT.
--- NOTE | 2021-10-18 22:55 | NUR ---
Called second time, no show in lobby or outside.
== END 2021-10-18 22:32 | disposition left against medical advice (07) ==
LOC: MED 20:33
DX: R10.9 Unspecified abdominal pain (principal); Z53.21 Procedure and treatment not carried out due to patient leaving prior to being seen by health care provider
CPT/HCPCS: 36415; 80053; 83690; 85025; G0482

== ENCOUNTER 2021-10-23 14:30 | Emergency (ER) | payer MEDICAID ==
[~2021-10-23] VITALS: Ht 180.3 cm; Wt 83.9 kg
[2021-10-23 14:38] VITALS: BP 138/79
--- NOTE | 2021-10-23 14:50 | NUR ---
PT PRESENTS TO ER C/O GENERALIZED ABDOMINAL PAIN WITH N/V SINCE LAST NIGHT. PT C/O 10/10 STABBING PAIN. PT AMBULATES TO BED WITH STEADY GAIT.
--- NOTE | 2021-10-23 14:55 | NUR ---
PT ASLEEP IN [place] NO S/S PAIN OR DISCOMFORT.
--- NOTE | 2021-10-23 15:10 | NUR ---
ER MD AT BEDSIDE. PT C/O 11/24 ABDOMINAL PAIN RESTLESS IN [facility]. PT BECOMES AGGRESSIVE WITH RN SAYING "YOU STUPID BITCH, DO YOU JOB AND I WONT HAVE TO COME BACK". PT ON THE PHONE SPEAKING LOUDLY.
[2021-10-23] MEDS ORDERED: DICYCLOMINE HCL LIQUID 10 MG/5 ML UDC ONE (15:37)
[2021-10-23] MEDS ORDERED: ALUMINUM HYD/MAG/SIMETHICONE 30 ML UDC ONE (15:37)
[2021-10-23] MEDS: ONDANSETRON 4 MG/2 ML VIAL IM ONE (15:49)
[2021-10-23 15:50] LABS: BASOPHILS % (AUTO) 0.6 % (0.0-2.0); HEMATOCRIT 40.7 % (36-52); HEMOGLOBIN 14.3 g/dL (12.0-18.0); LYMPHOCYTES # (AUTO) 1.5 K/uL (2.0-11.5); MEAN CORPUSCULAR HEMOGLOBIN 32 pg (27-31); MEAN CORPUSCULAR HGB CONC 35 g/dL (33-37); MEAN CORPUSCULAR VOLUME 89.8 fL (80-94); MONOCYTES # (AUTO) 0.4 K/uL (0.8-1.0); MONOCYTES % (AUTO) 5.5 % (1.7-9.3); NEUTROPHILS # (AUTO) 4.9 K/uL (1.8-7.7); NEUTROPHILS % (AUTO) 71.9 % (42.2-75.2); PLATELET COUNT (AUTO) 237 K/uL (140-450); RED BLOOD CELL COUNT(AUTO) 4.54 MIL/uL (4.20-6.10); RED CELL DISTRIBUTION WIDTH 13.4 % (11.6-13.7); WHITE BLOOD COUNT (AUTO) 6.9 K/uL (4.8-10.8)
[2021-10-23] MEDS: DICYCLOMINE HCL LIQUID 20 MG, ALUMINUM HYD/MAG/SIMETHICONE 30 ML, LIDOCAINE VISCOUS 2% ... PO ONE ×3 (15:55)
--- NOTE | 2021-10-23 16:25 | NUR ---
PT AMBULATES TO BATHROOM AND BACK TO [facility]
--- NOTE | 2021-10-23 16:54 | NUR ---
PATIENT ELOPED FROM FACILITY. DISCHARGE INSTRUCTIONS NOT GIVEN TO PATIENT. DR. MOONEY NOTIFIED.
[2021-10-23 18:01] LABS: ALBUMIN 4.1 g/dL (3.4-5.0); CARBON DIOXIDE 26.4 mmol/L (21-32); CREATININE 1.1 mg/dL (0.6-1.3); POTASSIUM 3.4 mmol/L (3.5-5.1); TOTAL BILIRUBIN 0.6 mg/dL (0.0-1.0)
== END 2021-10-23 16:54 | disposition left against medical advice (07) ==
LOC: MED 14:30
DX: R10.13 Epigastric pain (principal); F17.210 Nicotine dependence, cigarettes, uncomplicated; F12.90 Cannabis use, unspecified, uncomplicated; K21.9 Gastro-esophageal reflux disease without esophagitis; Z88.0 Allergy status to penicillin; Z79.899 Other long term (current) drug therapy; Z98.890 Other specified postprocedural states
CPT/HCPCS: 36415; 80053; 83690; 85025; 93005; 96372; 99284; J2405; 99283

== ENCOUNTER 2021-11-16 11:07 | Emergency (ER) | payer MEDICAID ==
[~2021-11-16] VITALS: Ht 188 cm; Wt 83.0 kg
[2021-11-16 11:22] VITALS: BP 132/76
--- NOTE | 2021-11-16 12:06 | NUR ---
PT AMBULATED TO BED 12
[2021-11-16] MEDS ORDERED: ONDANSETRON 4 MG ODT PO ONE (12:25)
[2021-11-16] MEDS ORDERED: DICYCLOMINE HCL LIQUID 20 MG, ALUMINUM HYD/MAG/SIMETHICONE 30 ML, LIDOCAINE VISCOUS 2% ... PO ONE ×3 (12:25)
[2021-11-16] MEDS ORDERED: KETOROLAC 60 MG/2 ML VIAL IM ONE (12:25)
[2021-11-16] MEDS ORDERED: DICYCLOMINE HCL LIQUID 10 MG/5 ML UDC ONE (12:32)
[2021-11-16] MEDS ORDERED: ALUMINUM HYD/MAG/SIMETHICONE 30 ML UDC ONE (12:32)
[2021-11-16] MEDS ORDERED: MORPHINE SULFATE 4 MG/ML SYR IM ONE (12:45)
[2021-11-16] MEDS ORDERED: ALPR0.5T2 PO (12:46)
[2021-11-16] MEDS ORDERED: HYDR-1100 PO (12:46)
[2021-11-16] MEDS ORDERED: GLIP10TE PO (12:46)
[2021-11-16] MEDS ORDERED: METO50TE2 PO (12:46)
[2021-11-16] MEDS ORDERED: ASPI-1749 PO (12:46)
[2021-11-16] MEDS ORDERED: FURO-570 PO (12:46)
[2021-11-16] MEDS ORDERED: LIP80 PO (12:46)
[2021-11-16] MEDS ORDERED: OMEP40EC24 PO (12:56)
[2021-11-16] MEDS ORDERED: ONDA8TAB87 PO (12:56)
[2021-11-16] MEDS ORDERED: IBUP-2213 PO (12:56)
--- NOTE | 2021-11-16 12:59 | NUR ---
31 y/o male bib self for c/o epigastric abdominal pain for three days. 11/24 sharp pain with n&v. denies diarrhea, chills, fever, cough, cp or sob. pt states he had normal endoscopy in July. pmh: denies allergy: penicillin med: pepcid
[2021-11-16 13:05] VITALS: BP 132/76
--- NOTE | 2021-11-16 13:05 | NUR ---
Patient discharged with v/s stable. Written and verbal after care instructions given and explained. Patient alert, oriented and verbalized understanding of instructions. Ambulatory with steady gait. All questions addressed prior to discharge. ID band removed. Patient advised to follow up with PMD. Rx of omeprazole, zofran, ibuprofen (sent) given. Patient educated on indication of medication including possible reaction and side effects. Opportunity to ask questions provided and answered.
== END 2021-11-16 13:05 | disposition home or self-care (01) ==
LOC: MED 11:07
DX: R10.13 Epigastric pain (principal); R11.2 Nausea with vomiting, unspecified; K21.9 Gastro-esophageal reflux disease without esophagitis; F12.90 Cannabis use, unspecified, uncomplicated; Z88.0 Allergy status to penicillin; Z79.899 Other long term (current) drug therapy; Z98.890 Other specified postprocedural states
CPT/HCPCS: 96372; 99284; J1885; J2270; Q0162

== ENCOUNTER 2021-11-16 18:33 | Inpatient (IN) | payer MEDICAID ==
[~2021-11-16] VITALS: Ht 188 cm; Wt 81.2 kg
[~2021-11-16 18:33] MED LIST changes: +ALPR0.5T2 PO; +ASPI-1749 PO; +FURO-570 PO; +GLIP10TE PO; +HYDR-1100 PO; +IBUP-2213 PO; +LIP80 PO; +METO50TE2 PO; +OMEP40EC24 PO; +ONDA8TAB87 PO
--- NOTE | 2021-11-16 18:47 | NUR ---
CALLED TO TRIAGE NO RESPONSE
[2021-11-16 18:53] VITALS: BP 136/84
--- NOTE | 2021-11-16 19:50 | NUR ---
C/O EPIGASTRIC PAIN N/V, WAS SEEN IN THE ED THIS MORNING AND DC WITH MEDS, PT DENIES TAKING ANY MEDICATION STATING THAT "HE WASNT ABLE TO GET THEM CAUSE THE PHARMACY IS CLOSED" ALLERGY: PCN PMH: ESOPHAGITIS, AFIB
[2021-11-16 21:40] LABS: BASOPHILS % (AUTO) 0.6 % (0.0-2.0); EOSINOPHILS % (AUTO) 0.5 % (0.0-4.0); HEMATOCRIT 43.2 % (36-52); HEMOGLOBIN 15.1 g/dL (12.0-18.0); LYMPHOCYTES # (AUTO) 2.2 K/uL (2.0-11.5); LYMPHOCYTES % (AUTO) 33.8 % (20.5-51.1); MEAN CORPUSCULAR HEMOGLOBIN 32 pg (27-31); MEAN CORPUSCULAR HGB CONC 35 g/dL (33-37); MEAN CORPUSCULAR VOLUME 90.5 fL (80-94); MONOCYTES # (AUTO) 0.5 K/uL (0.8-1.0); MONOCYTES % (AUTO) 7.8 % (1.7-9.3); NEUTROPHILS # (AUTO) 3.8 K/uL (1.8-7.7); NEUTROPHILS % (AUTO) 57.3 % (42.2-75.2); PLATELET COUNT (AUTO) 277 K/uL (140-450); RED BLOOD CELL COUNT(AUTO) 4.77 MIL/uL (4.20-6.10); RED CELL DISTRIBUTION WIDTH 13.1 % (11.6-13.7); WHITE BLOOD COUNT (AUTO) 6.6 K/uL (4.8-10.8)
[2021-11-16 21:54] LABS: ALBUMIN 4.5 g/dL (3.4-5.0); ANION GAP 15.3 (8-16); CARBON DIOXIDE 26.3 mmol/L (21-32); CREATININE 1.2 mg/dL (0.6-1.3); POTASSIUM 3.6 mmol/L (3.5-5.1)
[2021-11-16] MEDS ORDERED: FAMOTIDINE 20 MG TAB PO ONE (22:40)
[2021-11-16] MEDS ORDERED: ALUMINUM HYD/MAG/SIMETHICONE 30 ML UDC PO ONE (22:40)
--- NOTE | 2021-11-16 23:29 | NUR ---
PT MOVED TO ER BED 11
[2021-11-16] MEDS ORDERED: ONDANSETRON 4 MG/2 ML VIAL IVP ONE (23:30)
[2021-11-16] MEDS ORDERED: MORPHINE SULFATE 4 MG/ML SYR IVP ONE (23:30)
--- NOTE | 2021-11-17 00:32 | NUR ---
COVID-19 swabs collected and sent lab.
--- NOTE | 2021-11-17 02:01 | NUR ---
Patient will be admitted to care of Dr. Thomas. Admited to TELE. Will go to room 112A. Belongings list completed. Report to ELISA Calle.
--- NOTE | 2021-11-17 02:15 | NUR ---
RECEIVED REPORT FROM ER NURSE ON NEW ADMIT. PT ARRIVED ON MST UNIT VIA W/C . PT IS STABLE. AMBULATED FROM W/C TO BED WITH STEADY GAIT.A&OX4. C/O 10/10 ABDOMINAL PAIN. ON RM AIR/O2 WITH NO ACUTE DISTRESS. RR EVEN AND UNLABOREDWITH EQUAL CHEST RISE. GI INTACT. PT IS NPO AWAITING CONSULT WITH DR. FAUST. PT'S SKIN IS INTACT.IV 24G R WRIST IS FLUSHED AND PATENT SALINE LOCKED. ALL SAFETY MEASURES IN PLACE. BED IN LOW AND LOCKED POSITION. ENCOURAGED TO CALL FOR ASSISTANCE. WILL CONTINUE TO MONITOR
[2021-11-17 04:00] VITALS: BP 154/100
--- NOTE | 2021-11-17 04:00 | NUR ---
MORPHINE 2MG IVP GIVEN FOR 11/24 ABDOMINAL PAIN AT 0440. BP 154/100, DIASTOLIC BP VALUE HIGH DUE TO PAIN. AT 0500 TOMÁS RAMIREZ RESPONDED TO TEXT. PT MAY HAVE ICE CHIPS. KEEP NPO UNTIL CLEARED BY SURGEON. PT RESTING AFTER ICE CHIPS. ASLEEP AFTER 10 MINUTES. WILL CONTINUE TO MONITOR.
[2021-11-17] MEDS: MORPHINE SULFATE 2 MG/ML SYR IVP PRN ×4 (04:15→23:01)
[2021-11-17] MEDS ORDERED: MAG SULF 2000 MG/WATER PREMIX 50 ML IV PRN (07:55)
[2021-11-17] MEDS ORDERED: ACETAMINOPHEN 325 MG TAB PO PRN (07:55)
[2021-11-17] MEDS ORDERED: MORPHINE SULFATE 2 MG/ML SYR IVP PRN (07:55)
[2021-11-17] MEDS ORDERED: ZOLPIDEM 10 MG TAB PO PRN (07:55)
[2021-11-17] MEDS ORDERED: DOCUSATE SODIUM 100 MG GELCAP PO PRN (07:55)
[2021-11-17] MEDS ORDERED: POTASSIUM CHLORIDE 10 MEQ TABER PO PRN (07:55)
[2021-11-17 08:00] VITALS: BP 141/101
--- NOTE | 2021-11-17 08:55 | NUR ---
ENDORSED REPORT TO AM NURSE ZULAY RN FOR CONTINUITY OF CARE. PT IS STABLE. ALL NEEDS MET THROUGHOUT THE NIGHT.
[2021-11-17] MEDS: PANTOPRAZOLE 40 MG INJ VIAL IVP SCH (09:32)
--- NOTE | 2021-11-17 10:19 | NUR ---
RECEIVE ENDORSEMENT FROM PM SHIFT NURSE THAT PATIENT REST IN BED; 10/25 ABDOMINAL PAIN WHICH GIVEN 2MG MORPHINE LATE FOR MODULATE IT. NPO; PIV AT R. WRIST SALINE LOCK. WILL CONTINUE TO MONITOR
--- NOTE | 2021-11-17 10:22 | NUR ---
PATIENT HAS BEEN SCREENED AND CATEGORIZED HIGH NUTRITION RISK. PATIENT WILL BE SEEN WITHIN 1-2 DAYS OF ADMISSION. 11/17/21-11/19/[address] REFERRAL RECEIVED FOR VOMITING OVER 3 DAYS.
--- NOTE | 2021-11-17 15:39 | NUR ---
2RD INITIAL ASSESSMENT COMPLETED. PLEASE REFER TO NUTRITION ASSESSMENT UNDER CARE ACTIVITY FOR ESTIMATED NUTRITIONAL NEEDS. 1.WHEN/IF MEDICALLY APPROPRIATE, RECOMMEND CLEAR LIQUID DIET, AND GRADUALLY ADVANCING TO REGULAR DIET. 2.MONITOR NPO STATUS. 3.RD TO FOLLOW-UP IN 3-5 DAYS PATIENT IS MODERATE RISK. JOSE SIMPSON RD
[2021-11-17 16:00] VITALS: BP 134/104
--- NOTE | 2021-11-17 19:45 | NUR ---
ENDORSE PATIENT TO PM SHIFT NURSE THAT PATIENT REST IN BED; 9/10 ABDOMINAL PAIN WHICH GIVEN 2MG MORPHINE NOT LONG AGO FOR MODULATE PAIN, NPO AFTER MIDNIGHT; PIV AT R. WRIST SALINE LOCK.
--- NOTE | 2021-11-17 21:45 | NUR ---
RECEIVED PATIENT REPORT FROM NURSE MEJIA FOR CONTINUITY OF CARE.
[2021-11-17 23:06] LABS: BARBITURATE, URINE NEGATIVE ng/ml (NEG <=200); BENZODIAZEPINE, URINE NEGATIVE ng/mL (NEG <=200); CANNABINOID, URINE POSITIVE ng/mL (NEG <=50); COCAINE, URINE NEGATIVE ng/mL (NEG <=300); OPIATE, URINE POSITIVE ng/mL (NEG <=2000); PHENCYCLIDINE SCREEN,URINE NEGATIVE ng/mL (NEG <=25)
--- NOTE | 2021-11-18 | NUR ---
PT ASLEEP. NO S/SX OF DISTRESS NOTED. BREATHING EVEN AND UNLABORED. ALL PRECAUTIONS IN PLACE. WILL CONTINUE TO MONITOR.
[2021-11-18 04:00] VITALS: BP 150/102
[2021-11-18] MEDS: MORPHINE SULFATE 2 MG/ML SYR IVP PRN ×3 (05:55→22:44)
--- NOTE | 2021-11-18 05:55 | NUR ---
PT COMPLAINING OF 10/10 EPIGASTRIC PAIN. PRN PAIN MED GIVEN.WILL CONTINUE TO MONITOR.
[2021-11-18] MEDS: LORazepam 2 MG/ML VIAL IVP PRN ×3 (06:36→21:03)
[2021-11-18 06:43] LABS: CARBON DIOXIDE 26.6 mmol/L (21-32); POTASSIUM 3.6 mmol/L (3.5-5.1)
[2021-11-18 06:45] LABS: BASOPHILS % (AUTO) 0.5 % (0.0-2.0); EOSINOPHILS % (AUTO) 0.3 % (0.0-4.0); HEMATOCRIT 44.1 % (36-52); HEMOGLOBIN 15.6 g/dL (12.0-18.0); LYMPHOCYTES # (AUTO) 2.7 K/uL (2.0-11.5); LYMPHOCYTES % (AUTO) 49.3 % (20.5-51.1); MEAN CORPUSCULAR HEMOGLOBIN 31 pg (27-31); MEAN CORPUSCULAR HGB CONC 35 g/dL (33-37); MEAN CORPUSCULAR VOLUME 88.9 fL (80-94); MONOCYTES # (AUTO) 0.4 K/uL (0.8-1.0); NEUTROPHILS # (AUTO) 2.3 K/uL (1.8-7.7); NEUTROPHILS % (AUTO) 41.9 % (42.2-75.2); PLATELET COUNT (AUTO) 262 K/uL (140-450); RED BLOOD CELL COUNT(AUTO) 4.96 MIL/uL (4.20-6.10); RED CELL DISTRIBUTION WIDTH 13.1 % (11.6-13.7); WHITE BLOOD COUNT (AUTO) 5.6 K/uL (4.8-10.8)
[2021-11-18 06:48] LABS: PROTHROMBIN TIME 11.9 secs (10.8-13.4)
--- NOTE | 2021-11-18 07:00 | NUR ---
PT STABLE. NO ACUTE S/SX OF DISTRESS AT THIS MOMENT. PT REPORTS THE PAIN IS REDUCED AFTER MEDICATION.ALL NEEDS MET. ALL PRECAUTIONS IN PLACE.CALL LIGHT WITHIN REACH.WILL ENDORSE TO AM SHIFT NURSE.
--- NOTE | 2021-11-18 07:32 | NUR ---
RECEIVED PT FROM COMMUNITY LEADER NURSE FOR CONTINUITY OF CARE. PT AWAKE IN BED ON THE PHONE. NO DISTRESS NOTED. IV ON RIGHT WRIST 24G. ALL SAFETY MEASURES IN PLACE. CALL LIGHT WITHIN REACH.
[2021-11-18] MEDS: PANTOPRAZOLE 40 MG INJ VIAL IVP SCH (08:46)
--- NOTE | 2021-11-18 09:00 | NUR ---
PATIENT ALERT NO DISTRESS NOTED. RN GAVE PROTONIX ORDERED.
--- NOTE | 2021-11-18 11:00 | NUR ---
PATIENT REQUESTED TO HAVE SHOWER REQUEST GRANTED WITH ASSISTANCE FROM TECHNICAL SALES SUPPORT SPECIALIST.
--- NOTE | 2021-11-18 12:20 | NUR ---
ASK PATIENT TO BE READY FOR HIS SURGERY JEWELRY AND PERSONAL CLOTHES NEED TO BE REMOVE AND CHANGE TO HOSPITAL GOWN.
--- NOTE | 2021-11-18 13:35 | NUR ---
PATIENT ALERT ON STABLE CONDITION NPO SINCE LAST NIGHT. LEFT THE STATION TO GO TO OR WHEELED BY 2 OR STAFF.
[2021-11-18] MEDS ORDERED: BUPIVACAINE-MPF 0.25% 30 ML VIAL INJ ONE (14:05)
[2021-11-18] MEDS ORDERED: LIDOCAINE/EPI MPF 1%1:200000 30 ML VIAL INJ ONE (14:05)
[2021-11-18] MEDS ORDERED: ceFAZolin 2,000 MG VIAL ONE (14:05)
[2021-11-18] MEDS ORDERED: SEVOFLURANE 250 ML BTL INH ONE (14:17)
[2021-11-18] MEDS ORDERED: fentaNYL citrate 0.05 MG/ML VIAL ONE ×2 (14:29→15:26)
[2021-11-18] MEDS ORDERED: CLINDAMYCIN 900 MG/6 ML VIAL IV ONE (14:33)
[2021-11-18] MEDS ORDERED: KETOROLAC 30 MG/ML VIAL ONE (15:02)
[2021-11-18] MEDS ORDERED: ROCURONIUM 50 MG/5 ML VIAL IV ONE (15:02)
[2021-11-18] MEDS ORDERED: ONDANSETRON 4 MG/2 ML VIAL ONE (15:02)
[2021-11-18] MEDS ORDERED: PROPOFOL 200 MG/20 ML VIAL IV ONE (15:02)
[2021-11-18] MEDS ORDERED: LACTATED RINGERS 1,000 ML IV SCH (15:35)
[2021-11-18] MEDS ORDERED: METOCLOPRAMIDE 10 MG/2 ML INJ VIAL IVP PRN (15:36)
[2021-11-18] MEDS: HYDROmorphone 1 MG/ML AMP IVP PRN ×5 (15:40→17:49)
[2021-11-18] MEDS ORDERED: HYDROmorphone PFS 2 MG/ML SYR ONE (15:41)
--- NOTE | 2021-11-18 15:59 | NUR ---
DC PLANNING [facility] MET WITH PATIENT AND PT'S PARTNER AT BEDSIDE TO COMPLETE ASSESSMENT. PATIENT REPORTS RESIDING AT HOME WITH HIS PARTNER IN A TWO STORY HOME, AT THE ADDRESS LISTED ON FILE. PATIENT IDENTIFIED BERENICE KEANE (PARTNER) [phone] AND LALY VALDEZ (PARENTS) [phone] EMERGENCY CONTACT. PATIENT DENIED HAVING AD IN PLACE AND DECLINED AD OFFERED BY [facility]. PATIENT REPORTS MEETING WITH HIS PCP NEEDED, LAST VISIT; 2 MONTHS AGO. PATIENT REPORTS MEETING WITH HIS GI DOCTOR FREQUENTLY, LAST VISIT WITH GI DR, ON 11/14. PATIENT REPORTS MEDICATION COMPLIANCE AND DENIES BARRIERS IN ACCESSING NEEDED MEDICATIONS. PATIENT REPORTS PICKING UP MEDICATION FROM [facility] ON [address], WHEN NEEDED. PATIENT IS AMBULATORY AND DENIES USE OF DME, PATIENT COMPLETES ADL'S INDEPENDENTLY. PATIENT DENIES MH HX AND REPORTS SUBSTANCE USE HX CANNABIS USE WHICH HE BELIEVES IS NOT A PROBLEM. PATIENT REFUSED [facility] [employer]OURCES OFFERED BY [facility]. PATIENT REPORTS [employer] AND REPORTS RECEIVING [employer] BENEFITS OF $250. PATIENT REPORTS DC PLAN IS TO RETURN HOME WHEN MEDICALLY STABLE, WITH PARTNER PROVIDING TRANSPORTATION AND AIDING IN CARE, IF REQUIRED. [facility] INQUIRED ON RESOURCES NEEDED, PATIENT DECLINED.
--- NOTE | 2021-11-18 16:20 | NUR ---
PATIENT ON A GURNEY WHEELED BY 2 RN FROM OR. PATIENT AWAKE UN EASY INSTRUCTED TO LAY DOWN ON BED. RN REPORTED THAT PATIENT IN A LOT OF PAIN AND THEY GAVE LOTS OF PAIN MEDICATION AT OR. PATIENT WITH 4 SURGICAL SITE ON ABDOMEN FOR HIS LAP CHOLECYSTECTOMY. SLEEP ON AND OFF. MAKE HIM SITUATED IN BED.
[2021-11-18] MEDS ORDERED: hydrALAZINE 20 MG/ML VIAL IVP PRN (16:36)
[2021-11-18 19:17] LABS: APPEARANCE,URINE CLEAR (CLEAR); BILIRUBIN,URINE NEGATIVE (NEGATIVE); BLOOD, URINE NEGATIVE (NEGATIVE); COLOR,URINE YELLOW (YELLOW); LEUKOCYTE ESTERASE ,URINE NEGATIVE (NEGATIVE); NITRITE, URINE NEGATIVE (NEGATIVE); UGLUCOSE NEGATIVE (NEGATIVE)
--- NOTE | 2021-11-18 19:31 | NUR ---
RECEIVED PT ENDORSEMENT FOR CONTINUITY OF CARE. PT IS ON BED SLEEPING, NO SOB OR DISTRESS. PT IS STATUS POST LAPARASCOPIC CHOLECYSTECTOMY. NO SOB OR DISTRESS. PT IS SLEEPING AND CALM. PT HAS NO IV SITE AT THIS TIME. CONTINUE MONITORING.
--- NOTE | 2021-11-18 19:32 | NUR ---
GAVE REPORT TO WIRE MESH KNITTER NURSE FOR CONTINUITY OF CARE.
--- NOTE | 2021-11-18 20:20 | NUR ---
PT IS ON BED, CRYING AND AGITATED. ATIVAN PRN ADMINISTERED ORDERED.
--- NOTE | 2021-11-18 20:56 | NUR ---
PT IS IN SEVERE PAIN 11/24, PAIN MEDS DILAUDID AND MORPHINE ARE NOT DUE YET, CONTACT DR. TOMÁS MD PRESCRIBED TORADOL 30 MG IV ONCE. ORDER CARRIED OUT.
--- NOTE | 2021-11-18 21:00 | NUR ---
PT HAS NO IV SITE. REINSERTED IV SALINE LOCK ON LEFT HAND WITH GOOD BLOOD FLOW.
--- NOTE | 2021-11-18 21:00 | NUR ---
REINSERTED IV SALINE LOCK AT LEFT HAND WITH GOOD BLOOD FLOW, PT WELL TOLERATED.
--- NOTE | 2021-11-18 21:03 | NUR ---
ADMINISTERED IV MED ATIVAN PER ORDER FOR AGITATION.
[2021-11-18] MEDS ORDERED: KETOROLAC 30 MG/ML VIAL IVP SCH (21:05)
--- NOTE | 2021-11-18 21:36 | NUR ---
TORADOL 30 MG ADMINISTERED ORDERED AFTER CLARIFIED BY PHARMACY.
--- NOTE | 2021-11-18 22:44 | NUR ---
PT IS COMPLAINING OF SEVERE PAIN ON ABDOMEN PT IS COMPLAINING OF SEVERE PAIN ON ABDOMINAL AREA, ATIVAN ADMINISTERED ORDERED.
[2021-11-19] VITALS: BP 156/109
[2021-11-19] MEDS: HYDROmorphone 1 MG/ML AMP IVP PRN ×3 (00:03→17:59)
--- NOTE | 2021-11-19 00:03 | NUR ---
PT COMPLAINING PAIN ON ABDOMINAL AREA. DILAUDID ADMINISTERED ORDERED.
[2021-11-19] MEDS: LORazepam 2 MG/ML VIAL IVP PRN (04:17)
--- NOTE | 2021-11-19 04:17 | NUR ---
PT IS AWAKE AND COMPLAINING OF PAIN. DILAUDID ADMINISTERED ORDERED.
--- NOTE | 2021-11-19 04:17 | NUR ---
PT CRYING, AGITATED AND VERBALIZED INCREASE OF ANXIETY. LORAZEPAM MEDICATION ADMINISTERED ORDER.
--- NOTE | 2021-11-19 04:17 | NUR ---
REVISED ON PREVIOUS NOTES FOR DILAUDID. DILAUDID IS NOT GIVEN AT THIS TIME. ATIVAN IS ADMINISTERED FOR AGITATION.
--- NOTE | 2021-11-19 05:30 | NUR ---
PT REFUSED BLOOD WITHDRAW FOR LAB TEST.
--- NOTE | 2021-11-19 07:41 | NUR ---
PATIENT ASLEEP NO DISTRESS NOTED RESPIRATION EVEN AND NOT LABORED NO SHORTNESS OF BREATH. IV SITE ON LEFT HAND ANGELA 20. ALL SAFETY MEASURE IN PLACE.
[2021-11-19] MEDS: PANTOPRAZOLE 40 MG INJ VIAL IVP SCH (08:14)
--- NOTE | 2021-11-19 08:20 | NUR ---
PATIENT COMPLAIN OF SEVERE ABDOMINAL PAIN WHEN COP CHECKED HIS VITAL SIGN. ELISA BISWAS GAVE DILAUDID AND HIS PROTONIX. TOLERATED WELL. CALL LIGHT WITH IN EASY REACH.
--- NOTE | 2021-11-19 09:33 | NUR ---
PATIENT ASLEEP NO DISTRESS AT THIS TIME. CALL LIGHT WITH IN EASY REACH.
[2021-11-19] MEDS: MORPHINE SULFATE 2 MG/ML SYR IVP PRN (12:19)
[2021-11-19] MEDS: ONDANSETRON 4 MG/2 ML VIAL IVP PRN (12:19)
--- NOTE | 2021-11-19 12:37 | NUR ---
PATIENT CALLED THAT HE HAS STOMACH UPSET NOTED WITH VOMITING AND COMPLAINING OF ABD PAIN . ZULAY PÉREZ GAVE MORPHINE AND ZOFRAN AND NOW ASKING FOR PEPCID INFORM THAT HE HAS PROTONIX GIVEN THIS MORNING BUT STILL INSISTING ON HAVING PEPCID LEFT MESSAGE TO DR. ENGLAND.
--- NOTE | 2021-11-19 14:00 | NUR ---
PATIENT RESTING ON BED.
[2021-11-19] MEDS: NACL 0.9% 1,000 ML IV SCH (15:45)
[2021-11-19] MEDS ORDERED: METOCLOPRAMIDE 10 MG/2 ML INJ VIAL IVP SCH (16:00)
--- NOTE | 2021-11-19 17:38 | NUR ---
PATIENT COMPLAIN OF PAIN ON ABDOMEN OFFERED NORCO SINCE THE RN COVERING FOR ME IS BUSY AT THIS TIME. AND SAID OKAY I WILL WAIT. INFORM ZULAY PÉREZ COVERING FOR ME
--- NOTE | 2021-11-19 17:49 | NUR ---
PATIENT COMPLAIN OF PAIN MEDICATED ORDER BY RN. REMIND PATIENT THAT DOCTOR WANT HIM TO BE NPO UNTIL DR. EMERSON SEE THE PATIENT DUE TO HIS VOMITING OF BROWNISH COLOR.
--- NOTE | 2021-11-19 19:20 | NUR ---
GIVE REPORT TO PHARMACY RESIDENT NURSE HENRRY FOR CONTINUITY OF CARE. PATIENT ON STABLE CONDITION. CALL LIGHT WITH IN EASY REACH.
--- NOTE | 2021-11-19 19:21 | NUR ---
RECEIVED ENDORSEMENT FOR CONTINUITY OF CARE FROM CRISTIANE PEREZ, PATIENT WAS IN REPORTED PAIN BUT MEDICATION WERE GIVEN PRIOR TO ARRIVAL TO SHIFT. PATIENT WAS IN BED ALERT BUT ROCKING ANS HOLDING HIS STOMACH. PATIENT WAS ADVISED HE IS NPO EXCEPT MEDICATION UNTIL MD WILL EXAMINE THE PATIENT. PATIENT WAS GIVEN EDUCATION ON THE IMPORTANCE TO FIND WHAT IS CAUSING THE PROBLEM. NURSING NOTED PATIENT WAS BREATHING WITHOUT DISTRESS OR DIFFICULTIES. SIDE RAILS UP X 2. CALL LIGHT WITHIN REACH AND EXPLAINED TO PLEASE USE FOR ASSISTANCE AND NEEDS. PATIENT UNDERSTOOD AND AGREED. [email or web address]
[2021-11-19 20:00] VITALS: BP 134/96
[2021-11-19] MEDS: FAMOTIDINE 20 MG TAB PO SCH (20:56)
--- NOTE | 2021-11-19 21:35 | NUR ---
PATIENT WAS EASE TO AROUSE FOR EVENING MEDICATION. PATIENT TOOK MEDICATION WITHOUT INCIDENT. SIDE RAILS UP X 2 FOR SAFETY AND COMFORT. CALL LIGHT WITHIN REACH. [email or web address]
--- NOTE | 2021-11-19 23:22 | NUR ---
PATIENT IN BED ASLEEP AT THIS TIME. SIDE RAILS UP AND CALL LIGHT WITHIN REACH. NO NOTED S/S OF PAIN/DISCOMFORT. NO NOTED RESPIRATORY DISTRESS. NO NOTED VOMITING EPISODES. NURSING WILL CONTINUE TO MONITOR FOR PAIN MANAGEMENT. [email or web address]
[2021-11-19] MEDS: HYDROcodone/APAP 5/325 MG 1 TAB TAB PO PRN (23:53)
--- NOTE | 2021-11-20 01:06 | NUR ---
VISIT THE PT TO ASSESS PAIN - PT IS SLEEPING COMFORTABLY ON BED , CHEST RISE AND FALL EQUALLY . WILL INFORM PADDIT / THIRD MATE . CALL LIGHT WITHIN REACH .
--- NOTE | 2021-11-20 01:22 | NUR ---
PATIENT IN BED ASLEEP. PATIENT HAS NO NOTED S/S OF PAIN. CALL LIGHT WITHIN REACH. [email or web address]
[2021-11-20] MEDS: NACL 0.9% 1,000 ML IV SCH ×2 (01:32→11:20)
[2021-11-20] MEDS: HYDROmorphone 1 MG/ML AMP IVP PRN ×2 (02:18→08:17)
--- NOTE | 2021-11-20 02:19 | NUR ---
PATIENT COMPLAINED OF PAIN, COVERING RN WAS GIVEN BP AND HR TO GIVE THE MEDICATION. NURSING WILL REASSESS FOR EFFECTIVENESS. [email or web address]
--- NOTE | 2021-11-20 03:43 | NUR ---
PATIENT IN BED ASLEEP. PATIENT KEPT CLEAN AND DRY DURING THE SHIFT. NO NOTED S/S OF PAIN. NO EPISODES OF FAINTING. NO NOTED RESPIRATORY DISTRESS. CALL LIGHT WITH REACH SIDE RAILS UP X 3. [email or web address]
[2021-11-20 04:00] VITALS: BP 138/95
--- NOTE | 2021-11-20 05:08 | NUR ---
PATIENT IS IN BED ASLEEP. NO NOTED S/S OF ANY PAIN/DISCOMFORT AT THIS TIME. SIDERAILS UP X 2 . CALL LIGHT WITHIN REACH. [email or web address]
--- NOTE | 2021-11-20 07:14 | NUR ---
ENDORSED PATIENT TO MAYKEL RN, PATIENT WAS STABLE DURING CHANGE OF SHIFT. [email or web address]
[2021-11-20 08:00] VITALS: BP 75/95
[2021-11-20] MEDS: FAMOTIDINE 20 MG TAB PO SCH (08:16)
[2021-11-20] MEDS: ONDANSETRON 4 MG/2 ML VIAL IVP PRN (08:16)
[2021-11-20] MEDS ORDERED: IBUP-1842 PO (11:40)
[2021-11-20] MEDS: HYDROcodone/APAP 5/325 MG 1 TAB TAB PO PRN (15:02)
[2021-11-20 15:18] VITALS: BP 156/93
--- NOTE | 2021-11-20 16:09 | NUR ---
DISCHARGE INSTRUCTIONS GIVEN TO PATIENT UNDERSSTANDING VERBALIZED PT MADE AWARE TO KEEP INCISION SITES CLEAN DRY AND INTACT PT MADE AWARE TO KEEP FOLLOW UP APPOINTMENTS PT MADE AWARE TO RETURN TO ED OR CALL 911 IF S/S OF INFECTION OCCURED PT MADE AWARE TO CALL DR EMERSON/OH PER DR EMERSON IF IBUPROFEN NOT EFFECTIVE ALL NEEDS ANTICIPATED AND MET PT WHEELED TO PRIVATE CAR AND LEFT WITH FAMILY PT STABLE UPON DISCHARGE
== END 2021-11-20 16:00 | disposition home or self-care (01) | DRG 263 ==
LOC: MED 18:33 → MTU 11-17 00:27
PROVIDERS: ADMIT Family Medicine; ATTEND Family Medicine
PROC: 0FT44ZZ Resection of Gallbladder, Percutaneous Endoscopic Approach (ICD-10-PCS; principal; 2021-11-18 14:00)
DX: K80.44 Calculus of bile duct with chronic cholecystitis without obstruction (principal); F12.90 Cannabis use, unspecified, uncomplicated; K21.9 Gastro-esophageal reflux disease without esophagitis; Z20.822 Contact with and (suspected) exposure to COVID-19; K29.70 Gastritis, unspecified, without bleeding; R11.15 Cyclical vomiting syndrome unrelated to migraine; Z88.0 Allergy status to penicillin; Z79.899 Other long term (current) drug therapy; Z79.82 Long term (current) use of aspirin; Z79.1 Long term (current) use of non-steroidal anti-inflammatories (NSAID); Z83.79 Family history of other diseases of the digestive system
CPT/HCPCS: 36415; 76705; 80048; 80053; 80305; 81003; 82150; 82374; 83690; 83735; 85025; 85610; 85730; 87081; 88304; 93005; 96374; 96375; 99285; C9113; J1170; J1885; J2001; J2060; J2270; J2405; J2704; J2765; J3010; J3490; Q0092

== ENCOUNTER 2021-12-12 10:36 | Emergency (ER) | payer MEDICAID ==
[~2021-12-12] VITALS: Ht 188 cm; Wt 84.8 kg
[~2021-12-12 10:36] MED LIST changes: -ALPR0.5T2 PO; -ALUM355S5 PO; -ASPI-1749 PO; -BEN10 PO; -DICY10CA14 PO; -FAMO-90 PO; -FURO-570 PO; -GLIP10TE PO; -HYDR-1100 PO; +IBUP-1842 PO; -IBUP-2213 PO; -LIP80 PO; -METO50TE2 PO; -OMEP40EC24 PO; -ONDA-188 PO; -ONDA8TAB87 PO; -SUCR1TAB35 PO
[2021-12-12 10:41] VITALS: BP 135/86
--- NOTE | 2021-12-12 10:43 | NUR ---
AMBULATED TO BED 12
[2021-12-12] MEDS ORDERED: NACL 0.9% 1,000 ML IV SCH (10:55)
[2021-12-12] MEDS ORDERED: HALOPERIDOL IM 5 MG/ML VIAL IM ONE (10:55)
[2021-12-12] MEDS ORDERED: ONDANSETRON 4 MG/2 ML VIAL IVP ONE (10:55)
[2021-12-12 11:16] LABS: BASOPHILS % (AUTO) 0.7 % (0.0-2.0); EOSINOPHILS % (AUTO) 0.6 % (0.0-4.0); HEMATOCRIT 40.8 % (36-52); LYMPHOCYTES # (AUTO) 1.1 K/uL (2.0-11.5); LYMPHOCYTES % (AUTO) 18.6 % (20.5-51.1); MEAN CORPUSCULAR HEMOGLOBIN 31 pg (27-31); MEAN CORPUSCULAR HGB CONC 34 g/dL (33-37); MEAN CORPUSCULAR VOLUME 91.1 fL (80-94); MONOCYTES # (AUTO) 0.2 K/uL (0.8-1.0); MONOCYTES % (AUTO) 3.4 % (1.7-9.3); NEUTROPHILS # (AUTO) 4.4 K/uL (1.8-7.7); NEUTROPHILS % (AUTO) 76.7 % (42.2-75.2); PLATELET COUNT (AUTO) 237 K/uL (140-450); RED BLOOD CELL COUNT(AUTO) 4.48 MIL/uL (4.20-6.10); RED CELL DISTRIBUTION WIDTH 13.3 % (11.6-13.7); WHITE BLOOD COUNT (AUTO) 5.8 K/uL (4.8-10.8)
--- NOTE | 2021-12-12 11:22 | NUR ---
PT C/O ABDOMINAL PAIN N/V. HX OF CYCLICAL VOMITING SYNDROME, STATES USED MARIJUANA LAST NIGHT. IV INSERTED TO LEFT HAND #[id number] MEDICATED PER ORDER
[2021-12-12 11:42] LABS: ANION GAP 13.1 (8-16); CARBON DIOXIDE 25.5 mmol/L (21-32); POTASSIUM 3.6 mmol/L (3.5-5.1); TOTAL BILIRUBIN 0.4 mg/dL (0.0-1.0)
--- NOTE | 2021-12-12 12:50 | NUR ---
IV removed, catheter intact and site benign. Applied folded 4x4 gauze and tape to stop bleeding.
--- NOTE | 2021-12-12 12:51 | NUR ---
PT REQUESTED IV TO BE OUT SO HE CAN GO. IV REMOVED. PATIENT ELOPED FROM FACILITY. DISCHARGE INSTRUCTIONS NOT GIVEN TO PATIENT. DR. PONCE NOTIFIED.
== END 2021-12-12 12:51 | disposition left against medical advice (07) ==
LOC: MED 10:36
DX: R11.10 Vomiting, unspecified (principal); F12.90 Cannabis use, unspecified, uncomplicated; R10.84 Generalized abdominal pain; R03.0 Elevated blood-pressure reading, without diagnosis of hypertension; I48.91 Unspecified atrial fibrillation; K21.9 Gastro-esophageal reflux disease without esophagitis; Z90.49 Acquired absence of other specified parts of digestive tract; Z79.899 Other long term (current) drug therapy; Z79.1 Long term (current) use of non-steroidal anti-inflammatories (NSAID); Z88.0 Allergy status to penicillin
CPT/HCPCS: 36415; 80053; 83690; 85025; 96361; 96372; 96374; 99284; J1630; J2405; J7030

== ENCOUNTER 2022-01-04 09:46 | Emergency (ER) | payer MEDICAID ==
[~2022-01-04] VITALS: Ht 188 cm; Wt 80.7 kg
--- NOTE | 2022-01-04 09:52 | NUR ---
ATTEMPTED TO CALL TO TRIAGE NO ANSWER
[2022-01-04 09:59] VITALS: BP 113/89
--- NOTE | 2022-01-04 11:20 | NUR ---
ATTEMPTED TO CALL FOR BED PLACEMENT NO ANSWER
--- NOTE | 2022-01-04 11:20 | NUR ---
PATIENT LEFT WITHOUT BEING SEEN BY DR. MOONEY. NO FURTHER CARE PROVIDED FOR PATIENT.
--- NOTE | 2022-01-04 12:59 | NUR ---
THIRD NO ANSWER IN LOBBY
[2022-01-05] MEDS ORDERED: BENZ-315 PO (10:38)
[2022-01-05] MEDS ORDERED: HAL5 PO (10:38)
== END 2022-01-04 11:20 | disposition left against medical advice (07) ==
LOC: MED 09:46
DX: R11.2 Nausea with vomiting, unspecified (principal); R10.9 Unspecified abdominal pain; Z53.21 Procedure and treatment not carried out due to patient leaving prior to being seen by health care provider

== ENCOUNTER 2022-01-05 07:56 | Emergency (ER) | payer MEDICAID ==
[~2022-01-05] VITALS: Ht 188 cm; Wt 80.5 kg
[2022-01-05 08:00] VITALS: BP 122/67
--- NOTE | 2022-01-05 08:03 | NUR ---
PT AMB TO BED 1.
--- NOTE | 2022-01-05 08:10 | NUR ---
31/M WALKED IN C/O ABD PAIN AND NAUSEA VOMITING ONSET 4DAYS. PT REPORTS HX GALL BLADDER REMOVAL 11/17/21. AFEBRILE AT TRIAGE, DENIES BLOOD IN STOOL OR VOMIT. DENIES SX SITE TENDERNESS OR S/SX INFECTION. ON ROOM AIR, REPORTS 10/10 PAIN. ON STRIP STAMP STRAIGHTENER AND GOWN. PMH: GALL BLADDER REMOVAL 11/17/21
[2022-01-05] MEDS ORDERED: HALOPERIDOL IM 5 MG/ML VIAL IVP ONE (08:20)
[2022-01-05] MEDS ORDERED: KETOROLAC 30 MG/ML VIAL IVP ONE (08:20)
[2022-01-05] MEDS ORDERED: NACL 0.9% 1,000 ML IV ONE (08:20)
--- NOTE | 2022-01-05 08:56 | NUR ---
IV ESTABLISHED TO RIGHT HAND WITH 20G. BLOOD DRAWN BY CAR OILER
[2022-01-05 09:01] LABS: BASOPHILS % (AUTO) 0.4 % (0.0-2.0); EOSINOPHILS % (AUTO) 0.1 % (0.0-4.0); HEMATOCRIT 44.1 % (36-52); HEMOGLOBIN 15.4 g/dL (12.0-18.0); LYMPHOCYTES # (AUTO) 1.4 K/uL (2.0-11.5); LYMPHOCYTES % (AUTO) 27.5 % (20.5-51.1); MEAN CORPUSCULAR HEMOGLOBIN 32 pg (27-31); MEAN CORPUSCULAR HGB CONC 35 g/dL (33-37); MEAN CORPUSCULAR VOLUME 90.7 fL (80-94); MONOCYTES # (AUTO) 0.3 K/uL (0.8-1.0); MONOCYTES % (AUTO) 5.5 % (1.7-9.3); NEUTROPHILS # (AUTO) 3.3 K/uL (1.8-7.7); NEUTROPHILS % (AUTO) 66.5 % (42.2-75.2); PLATELET COUNT (AUTO) 219 K/uL (140-450); RED BLOOD CELL COUNT(AUTO) 4.86 MIL/uL (4.20-6.10); RED CELL DISTRIBUTION WIDTH 13.5 % (11.6-13.7)
--- NOTE | 2022-01-05 09:24 | NUR ---
PT CALM AND SLEEPING. STATES RELIEF FROM NAUSEA AND ABD PAIN.
[2022-01-05 09:26] LABS: ALBUMIN 4.2 g/dL (3.4-5.0); ANION GAP 17.7 (8-16); CARBON DIOXIDE 23.8 mmol/L (21-32); CREATININE 1.1 mg/dL (0.6-1.3); POTASSIUM 3.5 mmol/L (3.5-5.1)
[2022-01-05 10:00] VITALS: BP 122/75
[2022-01-05] MEDS ORDERED: HAL5 PO (10:38)
[2022-01-05] MEDS ORDERED: BENZ-315 PO (10:38)
== END 2022-01-05 10:40 | disposition home or self-care (01) ==
LOC: MED 07:56
DX: R11.2 Nausea with vomiting, unspecified (principal); K21.9 Gastro-esophageal reflux disease without esophagitis; Z79.899 Other long term (current) drug therapy; Z88.0 Allergy status to penicillin
CPT/HCPCS: 36415; 74176; 80053; 82150; 83690; 85025; 93005; 96361; 96374; 96375; 99285; J1630; J1885

== ENCOUNTER 2022-01-12 10:11 | Emergency (ER) | payer MEDICAID ==
[~2022-01-12] VITALS: Ht 188 cm; Wt 79.4 kg
[~2022-01-12 10:11] MED LIST changes: +BENZ-315 PO; +HAL5 PO
[2022-01-12 10:14] VITALS: BP 131/91
--- NOTE | 2022-01-12 12:46 | NUR ---
PATIENT LEFT WITHOUT BEING SEEN BY DR. HILARIO. NO FURTHER CARE PROVIDED FOR PATIENT. 3RD CALL [phone]
== END 2022-01-12 13:27 | disposition left against medical advice (07) ==
LOC: MED 10:11
DX: R10.9 Unspecified abdominal pain (principal); Z53.21 Procedure and treatment not carried out due to patient leaving prior to being seen by health care provider

== ENCOUNTER 2022-01-12 15:09 | Emergency (ER) | payer MEDICAID ==
[~2022-01-12] VITALS: Ht 177.8 cm; Wt 83.9 kg
[2022-01-12 15:47] VITALS: BP 138/70
--- NOTE | 2022-01-12 22:31 | NUR ---
CALLED CHANDLER MOONEY, NO ANSWER.
[2022-01-12 22:52] LABS: BASOPHILS % (AUTO) 0.4 % (0.0-2.0); EOSINOPHILS % (AUTO) 0.2 % (0.0-4.0); HEMATOCRIT 39.8 % (36-52); LYMPHOCYTES # (AUTO) 1.3 K/uL (2.0-11.5); MEAN CORPUSCULAR HEMOGLOBIN 32 pg (27-31); MEAN CORPUSCULAR HGB CONC 35 g/dL (33-37); MEAN CORPUSCULAR VOLUME 90.8 fL (80-94); MONOCYTES # (AUTO) 0.3 K/uL (0.8-1.0); MONOCYTES % (AUTO) 4.4 % (1.7-9.3); NEUTROPHILS # (AUTO) 5.2 K/uL (1.8-7.7); PLATELET COUNT (AUTO) 239 K/uL (140-450); RED BLOOD CELL COUNT(AUTO) 4.38 MIL/uL (4.20-6.10); RED CELL DISTRIBUTION WIDTH 13.1 % (11.6-13.7); WHITE BLOOD COUNT (AUTO) 6.8 K/uL (4.8-10.8)
[2022-01-12 23:27] LABS: ALBUMIN 4.3 g/dL (3.4-5.0); ANION GAP 20.5 (8-16); CARBON DIOXIDE 21.9 mmol/L (21-32); CREATININE 1.1 mg/dL (0.6-1.3); POTASSIUM 3.4 mmol/L (3.5-5.1); TOTAL BILIRUBIN 0.6 mg/dL (0.0-1.0)
== END 2022-01-12 21:31 | disposition left against medical advice (07) ==
LOC: MED 15:09
DX: R10.9 Unspecified abdominal pain (principal); R11.2 Nausea with vomiting, unspecified; Z53.21 Procedure and treatment not carried out due to patient leaving prior to being seen by health care provider
CPT/HCPCS: 36415; 80053; 83690; 85025

== ENCOUNTER 2022-02-07 17:58 | Emergency (ER) | payer MEDICAID ==
[~2022-02-07] VITALS: Ht 188 cm; Wt 82.6 kg
[2022-02-07 18:14] VITALS: BP 114/93
--- NOTE | 2022-02-07 20:30 | NUR ---
PT TO BED #5
[2022-02-07] MEDS ORDERED: HALOPERIDOL IM 5 MG/ML VIAL IVP ONE (20:35)
[2022-02-07] MEDS ORDERED: diphenhydrAMINE 50 MG/ML VIAL IVP ONE (20:35)
[2022-02-07] MEDS ORDERED: NACL 0.9% 1,000 ML IV ONE (20:35)
--- NOTE | 2022-02-07 20:57 | NUR ---
LAB AT BEDSIDE
--- NOTE | 2022-02-07 21:15 | NUR ---
CONFIRMED WITH CARMEN FROM LAB THAT URINE IS THERE.
[2022-02-07 21:35] LABS: BASOPHILS % (AUTO) 0.3 % (0.0-2.0); HEMATOCRIT 42.3 % (36-52); HEMOGLOBIN 14.7 g/dL (12.0-18.0); LYMPHOCYTES # (AUTO) 1.4 K/uL (2.0-11.5); LYMPHOCYTES % (AUTO) 17.3 % (20.5-51.1); MEAN CORPUSCULAR HEMOGLOBIN 32 pg (27-31); MEAN CORPUSCULAR HGB CONC 35 g/dL (33-37); MEAN CORPUSCULAR VOLUME 90.8 fL (80-94); MONOCYTES # (AUTO) 0.4 K/uL (0.8-1.0); MONOCYTES % (AUTO) 4.9 % (1.7-9.3); NEUTROPHILS # (AUTO) 6.2 K/uL (1.8-7.7); NEUTROPHILS % (AUTO) 77.5 % (42.2-75.2); PLATELET COUNT (AUTO) 262 K/uL (140-450); RED BLOOD CELL COUNT(AUTO) 4.66 MIL/uL (4.20-6.10); RED CELL DISTRIBUTION WIDTH 13.2 % (11.6-13.7)
[2022-02-07 21:42] LABS: BARBITURATE, URINE NEGATIVE ng/ml (NEG <=200); BENZODIAZEPINE, URINE NEGATIVE ng/mL (NEG <=200); CANNABINOID, URINE POSITIVE ng/mL (NEG <=50); COCAINE, URINE NEGATIVE ng/mL (NEG <=300); OPIATE, URINE NEGATIVE ng/mL (NEG <=2000); PHENCYCLIDINE SCREEN,URINE NEGATIVE ng/mL (NEG <=25)
[2022-02-07 21:43] LABS: APPEARANCE,URINE CLEAR (CLEAR); BILIRUBIN,URINE NEGATIVE (NEGATIVE); BLOOD, URINE TRACE (NEGATIVE); COLOR,URINE AMBER (YELLOW); PH,URINE 8.5 (5.0-9.0); UGLUCOSE NEGATIVE (NEGATIVE)
[2022-02-07 21:44] LABS: LEUKOCYTE ESTERASE ,URINE NEGATIVE (NEGATIVE); NITRITE, URINE NEGATIVE (NEGATIVE); RBC,URINE 0-5 /HPF (0-5); WBC,URINE NONE SEEN /HPF (0-5)
[2022-02-07 21:59] LABS: ALBUMIN 4.5 g/dL (3.4-5.0); CARBON DIOXIDE 24.6 mmol/L (21-32); CREATININE 1.1 mg/dL (0.6-1.3); POTASSIUM 3.6 mmol/L (3.5-5.1); TOTAL BILIRUBIN 0.8 mg/dL (0.0-1.0)
--- NOTE | 2022-02-07 22:48 | NUR ---
Patient lying in bed resting with eyes closed, A/Ox4, chest rise and fall symmetrical, no c/o pain or s/s of distress.
--- NOTE | 2022-02-07 23:30 | NUR ---
Patient lying in bed resting with eyes closed, A/Ox4, chest rise and fall symmetrical, no c/o pain or s/s of distress.
[2022-02-07 23:50] VITALS: BP 111/85
== END 2022-02-07 23:58 | disposition home or self-care (01) ==
LOC: MED 17:58
DX: K21.9 Gastro-esophageal reflux disease without esophagitis (principal); I48.91 Unspecified atrial fibrillation; Z90.49 Acquired absence of other specified parts of digestive tract
CPT/HCPCS: 36415; 74176; 80053; 80305; 81001; 82150; 83690; 85025; 96361; 96374; 96375; 99284; J1200; J1630

== ENCOUNTER 2022-02-09 07:27 | Emergency (ER) | payer MEDICAID ==
[~2022-02-09] VITALS: Ht 188 cm; Wt 80.3 kg
[2022-02-09 07:34] VITALS: BP 135/53
--- NOTE | 2022-02-09 07:45 | NUR ---
PT IN LOBBY
--- NOTE | 2022-02-09 07:54 | NUR ---
31 Y/O MALE BIB SELF C/O EPIGASTRIC PAIN AND NVX3 EPISODES THIS [id number]. PER PT WAS SEEN IN THE ED ON 02/07/22. DENIES ANY MEDICATION PRIOR TO ARRIVAL. NOTED VOMITUS IN BAG, NO BLOOD NOTED. DENIES ANY DIARRHEA ALLERGY: PCN PMH: DENIES
[2022-02-09] MEDS ORDERED: diphenhydrAMINE 50 MG/ML VIAL IVP ONE (07:55)
[2022-02-09] MEDS ORDERED: NACL 0.9% 1,000 ML IV SCH (07:55)
[2022-02-09] MEDS ORDERED: HALOPERIDOL IM 5 MG/ML VIAL IVP ONE (07:55)
[2022-02-09 08:25] LABS: BASOPHILS % (AUTO) 0.4 % (0.0-2.0); EOSINOPHILS % (AUTO) 0.2 % (0.0-4.0); HEMATOCRIT 43.3 % (36-52); LYMPHOCYTES # (AUTO) 1.1 K/uL (2.0-11.5); LYMPHOCYTES % (AUTO) 23.6 % (20.5-51.1); MEAN CORPUSCULAR HEMOGLOBIN 31 pg (27-31); MEAN CORPUSCULAR HGB CONC 35 g/dL (33-37); MEAN CORPUSCULAR VOLUME 90.4 fL (80-94); MONOCYTES # (AUTO) 0.3 K/uL (0.8-1.0); MONOCYTES % (AUTO) 7.5 % (1.7-9.3); NEUTROPHILS # (AUTO) 3.1 K/uL (1.8-7.7); NEUTROPHILS % (AUTO) 68.3 % (42.2-75.2); PLATELET COUNT (AUTO) 241 K/uL (140-450); RED BLOOD CELL COUNT(AUTO) 4.79 MIL/uL (4.20-6.10); RED CELL DISTRIBUTION WIDTH 13.2 % (11.6-13.7); WHITE BLOOD COUNT (AUTO) 4.5 K/uL (4.8-10.8)
[2022-02-09 08:32] VITALS: BP 116/74
[2022-02-09 09:57] LABS: ALBUMIN 4.2 g/dL (3.4-5.0); ANION GAP 19.4 (8-16); CARBON DIOXIDE 24.2 mmol/L (21-32); POTASSIUM 3.6 mmol/L (3.5-5.1); TOTAL BILIRUBIN 1.3 mg/dL (0.0-1.0)
[2022-02-09] MEDS ORDERED: ONDA-188 SL (10:25)
--- NOTE | 2022-02-09 10:26 | NUR ---
Trudy mckeon in EDM - 02/09/22 at 1039 by [email or web address] PATIENT ELOPED FROM FACILITY. DISCHARGE INSTRUCTIONS NOT GIVEN TO PATIENT. DR. JACKSON NOTIFIED.
--- NOTE | 2022-02-09 10:26 | NUR ---
PATIENT ELOPED FROM FACILITY. DISCHARGE INSTRUCTIONS NOT GIVEN TO PATIENT. DR. JACKSON NOTIFIED.
--- NOTE | 2022-02-09 10:26 | NUR ---
Note linda in EDM - 02/09/22 at 1056 by [email or web address] PT UP FOR DISCHARGE BY DR JACKSON. PT NOT FOUND IN LOBBY/OUTSIDE. PT LEFT WITHOUT DISCHARGE PAPERWORK. RX OF DIEGO SENT TO PHARMACY.
--- NOTE | 2022-02-09 10:27 | NUR ---
PT ELOPED FROM FACILITY WITH IV IN PLACE, NOT FOUND IN LOBBY/OUTSDIE. DR JACKSON AWARE. ATTEMPTED TO CALL PT X2, NO ANSWER.
--- NOTE | 2022-02-09 10:36 | NUR ---
CONTACTED [facility], SPOKE WITH DISPATCH #470 TO NOTIFY THEM THAT PT ELOPED WITH IV IN PLACE.
== END 2022-02-09 10:27 | disposition left against medical advice (07) ==
LOC: MED 07:27
DX: R11.2 Nausea with vomiting, unspecified (principal); F12.10 Cannabis abuse, uncomplicated; Z88.0 Allergy status to penicillin; Z79.899 Other long term (current) drug therapy
CPT/HCPCS: 36415; 80053; 83690; 85025; 96361; 96374; 96375; 99284; J1200; J1630

== ENCOUNTER 2022-02-25 08:55 | Emergency (ER) | payer MEDICAID ==
--- NOTE | 2022-02-25 09:20 | NUR ---
CALLED TO TRIAGE NO ANSWER
--- NOTE | 2022-02-25 09:20 | NUR ---
PATIENT LEFT WITHOUT BEING SEEN BY DR. MOONEY. NO FURTHER CARE PROVIDED FOR PATIENT.
--- NOTE | 2022-02-25 09:37 | NUR ---
THIRD NO ANSWER TO TRIAGE
== END 2022-02-25 09:20 | disposition left against medical advice (07) ==
LOC: MED 08:55
DX: R11.10 Vomiting, unspecified (principal); Z53.21 Procedure and treatment not carried out due to patient leaving prior to being seen by health care provider

== ENCOUNTER 2022-03-03 10:12 | Emergency (ER) | payer MEDICAID ==
[~2022-03-03] VITALS: Ht 188 cm; Wt 81.6 kg
[2022-03-03 10:33] VITALS: BP 132/47
[2022-03-03] MEDS ORDERED: ONDANSETRON 4 MG ODT PO ONE (10:40)
[2022-03-03] MEDS ORDERED: diphenhydrAMINE 50 MG/ML VIAL IM ONE (10:40)
[2022-03-03] MEDS ORDERED: HALOPERIDOL IM 5 MG/ML VIAL IM ONE (10:40)
--- NOTE | 2022-03-03 10:58 | NUR ---
Pt ambulated to CHAIR A.
--- NOTE | 2022-03-03 11:05 | NUR ---
31 y/o M BIB self from home c/o nausea, vomiting, generalized abdominal pain x 5 days. Patient A&Ox4, ambulatory, states symptoms began on 02/27/22 after smoking marijuana. Pt reports generalized abd pain 10/10, aching/constant, non-radiating pain. Tender to palpation. Pt with vomiting x >5 episodes; denies blood in vomit. Denies dysuria, urinary symptoms, fever, chills, chest pain, back pain. OTC stomach relief meds no relief. PMH/Meds: denies Sx: cholecystectomy, G-tube placement 2019 Allergies: PCN
--- NOTE | 2022-03-03 11:09 | NUR ---
Pt states Chetan (brother) drove pt/transportation home.
--- NOTE | 2022-03-03 11:15 | NUR ---
PT REMOVED PULSE OXIMETRY. PATIENT ELOPED FROM FACILITY. DISCHARGE INSTRUCTIONS NOT GIVEN TO PATIENT. DR. LEWIS NOTIFIED.
== END 2022-03-03 11:15 | disposition left against medical advice (07) ==
LOC: MED 10:12
DX: R11.2 Nausea with vomiting, unspecified (principal); Z71.6 Tobacco abuse counseling; F12.90 Cannabis use, unspecified, uncomplicated; Z98.890 Other specified postprocedural states; Z79.899 Other long term (current) drug therapy; Z79.1 Long term (current) use of non-steroidal anti-inflammatories (NSAID); Z88.0 Allergy status to penicillin
CPT/HCPCS: 96372; 99284; J1200; J1630; Q0162

== ENCOUNTER 2022-03-05 00:17 | Emergency (ER) | payer MEDICAID ==
[~2022-03-05] VITALS: Ht 188 cm; Wt 81.6 kg
[2022-03-05 00:19] VITALS: BP 126/81
--- NOTE | 2022-03-05 00:23 | NUR ---
TO LOBBY FOLLOWING TRIAGE. UNABLE TO GIVE UA AT THIS TIME
[2022-03-05] MEDS: ONDANSETRON 4 MG ODT PO ONE (00:50)
--- NOTE | 2022-03-05 01:36 | NUR ---
PT TO 3
--- NOTE | 2022-03-05 01:56 | NUR ---
Patient being evaluated by physician at bedside.
--- NOTE | 2022-03-05 02:24 | NUR ---
Patient does not wish to proceed with Medications recommended by . Patient given information related to possible complications, up to and including , which could occur as a result from refusing treatment/test at this time. Patient verbalizes understanding of risks involved from refusing treatment/test. Patient kept on verbalizing " this med is not gonna work. I don't wanna take it!" and geoscience technician aware
[2022-03-05] MEDS: KETOROLAC 60 MG/2 ML VIAL IM ONE (02:25)
--- NOTE | 2022-03-05 02:48 | NUR ---
Dr. Shah bedside for pt eval
[2022-03-05] MEDS ORDERED: ONDA8TAB87 PO (03:14)
[2022-03-05] MEDS: diphenhydrAMINE 50 MG/ML VIAL IM ONE (03:16)
[2022-03-05 03:18] VITALS: BP 121/67
[2022-03-05] MEDS: HALOPERIDOL IM 5 MG/ML VIAL IM ONE (03:23)
== END 2022-03-05 03:18 | disposition home or self-care (01) ==
LOC: MED 00:17
DX: R10.13 Epigastric pain (principal); R11.2 Nausea with vomiting, unspecified; F12.90 Cannabis use, unspecified, uncomplicated; Z79.899 Other long term (current) drug therapy; Z88.0 Allergy status to penicillin; Z90.49 Acquired absence of other specified parts of digestive tract; Z98.890 Other specified postprocedural states
CPT/HCPCS: 96372; 99284; J1200; J1630; J1885; Q0162

== ENCOUNTER 2022-03-06 14:47 | Emergency (ER) | payer MEDICAID ==
[~2022-03-06] VITALS: Ht 188 cm; Wt 81.6 kg
[~2022-03-06 14:47] MED LIST changes: +ONDA8TAB87 PO
[2022-03-06 14:55] VITALS: BP 148/83
--- NOTE | 2022-03-06 15:46 | NUR ---
pa called outside and in lobby, no answer
--- NOTE | 2022-03-06 16:00 | NUR ---
ATTEMPTED TO BRING PT BACK, NOT FOUND IN LOBBY/OUTSIDE
--- NOTE | 2022-03-06 16:21 | NUR ---
PATIENT LEFT WITHOUT BEING SEEN BY NOEMI FIGUEROA. NO FURTHER CARE PROVIDED FOR PATIENT.
--- NOTE | 2022-03-06 16:21 | NUR ---
LAST ATTEMPT, NOT FOUND IN LOBBY/OUTSIDE. PATIENT LEFT WITHOUT BEING SEEN BY NOEMI FIGUEROA. NO FURTHER CARE PROVIDED FOR PATIENT.
== END 2022-03-06 16:21 | disposition left against medical advice (07) ==
LOC: MED 14:47
DX: R10.9 Unspecified abdominal pain (principal); Z53.21 Procedure and treatment not carried out due to patient leaving prior to being seen by health care provider

== ENCOUNTER 2022-04-05 15:00 | Emergency (ER) | payer MEDICAID ==
[~2022-04-05] VITALS: Ht 188 cm; Wt 85.9 kg
[2022-04-05 15:47] VITALS: BP 126/80
== END 2022-04-05 21:31 | disposition left against medical advice (07) ==
LOC: MED 15:00
DX: R10.84 Generalized abdominal pain (principal); R11.2 Nausea with vomiting, unspecified; Z53.21 Procedure and treatment not carried out due to patient leaving prior to being seen by health care provider

== ENCOUNTER 2022-04-06 04:59 | Emergency (ER) | payer MEDICAID ==
[~2022-04-06] VITALS: Ht 188 cm; Wt 85.3 kg
[2022-04-06 05:27] VITALS: BP 129/78
[2022-04-06] MEDS ORDERED: DICYCLOMINE HCL LIQUID 20 MG, ALUMINUM HYD/MAG/SIMETHICONE 30 ML, LIDOCAINE VISCOUS 2% ... PO ONE ×3 (05:55)
--- NOTE | 2022-04-06 06:01 | NUR ---
PATIENT LEFT WITHOUT BEING SEEN BY DR. Tello. NO FURTHER CARE PROVIDED FOR PATIENT.
--- NOTE | 2022-04-06 06:01 | NUR ---
Patient walked out ER.
== END 2022-04-06 06:01 | disposition left against medical advice (07) ==
LOC: MED 04:59
DX: R10.9 Unspecified abdominal pain (principal); Z53.21 Procedure and treatment not carried out due to patient leaving prior to being seen by health care provider

== ENCOUNTER 2022-05-02 10:30 | Emergency (ER) | payer MEDICAID ==
[~2022-05-02] VITALS: Ht 188 cm; Wt 86.2 kg
[2022-05-02 10:32] VITALS: BP 143/111
--- NOTE | 2022-05-02 10:40 | NUR ---
PT AMB TO BED 12.
--- NOTE | 2022-05-02 10:47 | NUR ---
here for abd pain 11/24 since today am, ivsl placed, awaits md jerome
[2022-05-02] MEDS ORDERED: HALOPERIDOL IM 5 MG/ML VIAL ONE (10:54)
[2022-05-02] MEDS ORDERED: HALOPERIDOL IM 5 MG/ML VIAL IVP ONE (10:55)
[2022-05-02] MEDS ORDERED: diphenhydrAMINE 50 MG/ML VIAL ONE (10:57)
[2022-05-02] MEDS ORDERED: diphenhydrAMINE 50 MG/ML VIAL IVP ONE (11:00)
--- NOTE | 2022-05-02 11:15 | NUR ---
pt now sleeping, + abd pain relief after haldol and benadryl no vomiting noted
[2022-05-02 11:17] LABS: BASOPHILS # (AUTO) 0.1 K/uL (0.00-0.22); BASOPHILS % (AUTO) 0.9 % (0.0-2.0); EOSINOPHILS % (AUTO) 0.7 % (0.0-4.0); HEMATOCRIT 44.1 % (36-52); HEMOGLOBIN 15.1 g/dL (12.0-18.0); LYMPHOCYTES # (AUTO) 1.8 K/uL (2.0-11.5); LYMPHOCYTES % (AUTO) 30.4 % (20.5-51.1); MEAN CORPUSCULAR HEMOGLOBIN 32 pg (27-31); MEAN CORPUSCULAR HGB CONC 34 g/dL (33-37); MEAN CORPUSCULAR VOLUME 92.4 fL (80-94); MONOCYTES # (AUTO) 0.4 K/uL (0.8-1.0); MONOCYTES % (AUTO) 6.6 % (1.7-9.3); NEUTROPHILS # (AUTO) 3.7 K/uL (1.8-7.7); NEUTROPHILS % (AUTO) 61.4 % (42.2-75.2); PLATELET COUNT (AUTO) 235 K/uL (140-450); RED BLOOD CELL COUNT(AUTO) 4.77 MIL/uL (4.20-6.10); RED CELL DISTRIBUTION WIDTH 13.4 % (11.6-13.7)
[2022-05-02 11:21] LABS: ANION GAP 15.3 (8-16); CARBON DIOXIDE 24.5 mmol/L (21-32); CREATININE 1.1 mg/dL (0.6-1.3); POTASSIUM 3.8 mmol/L (3.5-5.1)
[2022-05-02 11:27] LABS: ALBUMIN 4.2 g/dL (3.4-5.0); TOTAL BILIRUBIN 0.4 mg/dL (0.0-1.0)
--- NOTE | 2022-05-02 12:40 | NUR ---
food tray given
--- NOTE | 2022-05-02 13:10 | NUR ---
pt will be transferred to [facility], report to ELISA Bhatia [phone]. eta 20-25 min
[2022-05-02 13:58] VITALS: BP 145/78
[2022-05-03] MEDS ORDERED: ONDA-188 SL (14:42)
[2022-05-03] MEDS ORDERED: PROC-87 PO (14:42)
== END 2022-05-02 13:58 | disposition home or self-care (01) ==
LOC: MED 10:30
DX: R11.2 Nausea with vomiting, unspecified (principal); R10.13 Epigastric pain; R19.7 Diarrhea, unspecified; F12.90 Cannabis use, unspecified, uncomplicated; F17.200 Nicotine dependence, unspecified, uncomplicated; Z71.6 Tobacco abuse counseling; Z88.0 Allergy status to penicillin; Z79.899 Other long term (current) drug therapy
CPT/HCPCS: 36415; 80053; 83690; 85025; 93005; 96374; 96375; 99284; J1200; J1630

== ENCOUNTER 2022-05-03 10:58 | Emergency (ER) | payer MEDICAID ==
[~2022-05-03] VITALS: Ht 188 cm; Wt 86.2 kg
[2022-05-03 11:14] VITALS: BP 147/108
[2022-05-03] MEDS ORDERED: KETAMINE 500 MG/5 ML VIAL IVP ONE (11:45)
[2022-05-03] MEDS ORDERED: LORazepam 2 MG/ML VIAL IVP ONE (11:45)
[2022-05-03] MEDS ORDERED: ONDANSETRON 4 MG/2 ML VIAL IVP ONE (11:45)
[2022-05-03] MEDS ORDERED: NACL 0.9% 1,000 ML IV ONE (11:45)
--- NOTE | 2022-05-03 12:21 | NUR ---
PT LYING ON BED. PT WAS EXAMINED BY DR. LEE.
[2022-05-03 12:32] LABS: BASOPHILS % (AUTO) 0.5 % (0.0-2.0); HEMATOCRIT 46.1 % (36-52); HEMOGLOBIN 16.1 g/dL (12.0-18.0); LYMPHOCYTES # (AUTO) 1.1 K/uL (2.0-11.5); LYMPHOCYTES % (AUTO) 14.9 % (20.5-51.1); MEAN CORPUSCULAR HEMOGLOBIN 32 pg (27-31); MEAN CORPUSCULAR HGB CONC 35 g/dL (33-37); MEAN CORPUSCULAR VOLUME 90.9 fL (80-94); MONOCYTES # (AUTO) 0.2 K/uL (0.8-1.0); MONOCYTES % (AUTO) 3.3 % (1.7-9.3); NEUTROPHILS # (AUTO) 5.9 K/uL (1.8-7.7); NEUTROPHILS % (AUTO) 81.3 % (42.2-75.2); PLATELET COUNT (AUTO) 253 K/uL (140-450); RED BLOOD CELL COUNT(AUTO) 5.07 MIL/uL (4.20-6.10); RED CELL DISTRIBUTION WIDTH 13.4 % (11.6-13.7); WHITE BLOOD COUNT (AUTO) 7.3 K/uL (4.8-10.8)
[2022-05-03] MEDS ORDERED: HALOPERIDOL IM 5 MG/ML VIAL IVP ONE (12:35)
[2022-05-03 12:42] LABS: ANION GAP 17.7 (8-16); CARBON DIOXIDE 21.8 mmol/L (21-32); CREATININE 1.1 mg/dL (0.6-1.3); POTASSIUM 3.5 mmol/L (3.5-5.1)
--- NOTE | 2022-05-03 12:49 | NUR ---
PT WAS MEDICATED WITH ATIVAN AND ZOFRAN. PT WANT TO HOLDOL IM WITH BENDRAYL. DR. MONIQUE NOTIFIED.
[2022-05-03] MEDS ORDERED: diphenhydrAMINE 50 MG/ML VIAL IVP ONE (13:00)
--- NOTE | 2022-05-03 13:11 | NUR ---
PER PT REQUESTS, DR. LEE ORDERED BENADRYL. BENANDRYL WITH HALDOL GIVEN IVP.
[2022-05-03] MEDS ORDERED: PROC-87 PO (14:42)
[2022-05-03] MEDS ORDERED: ONDA-188 SL (14:42)
[2022-05-03 15:27] VITALS: BP 134/89
== END 2022-05-03 15:27 | disposition home or self-care (01) ==
LOC: MED 10:58
DX: F12.188 Cannabis abuse with other cannabis-induced disorder (principal); R11.15 Cyclical vomiting syndrome unrelated to migraine; Z79.899 Other long term (current) drug therapy; Z79.1 Long term (current) use of non-steroidal anti-inflammatories (NSAID); Z88.0 Allergy status to penicillin
CPT/HCPCS: 36415; 80048; 85025; 96361; 96372; 96374; 96375; 99284; J1200; J1630; J2060; J2405; J7030

== ENCOUNTER 2022-05-04 09:09 | Emergency (ER) | payer MEDICAID ==
[~2022-05-04] VITALS: Ht 188 cm; Wt 86.2 kg
[~2022-05-04 09:09] MED LIST changes: +PROC-87 PO
[2022-05-04 09:16] VITALS: BP 148/93
--- NOTE | 2022-05-04 09:53 | NUR ---
31/M WALKED IN C/O THROAT DISCOMFORT AND PAIN ONSET THIS MORNING. PT REPORTS PAIN TO THE LOWER THROAT WHEN SWALLOWING. DENIES ANY FOREIGN OBJECT. NO ACUTE DISTRESS, ON ROOM AIR. PMH: DENIES
--- NOTE | 2022-05-04 10:22 | NUR ---
PT C/O NEW ONSET MIDSTERNAL CHEST PAIN. EKG INITIATED. DR PONCE MADE AWARE.
[2022-05-04] MEDS ORDERED: ONDANSETRON 4 MG ODT PO ONE (10:30)
[2022-05-04] MEDS ORDERED: KETOROLAC 30 MG/ML VIAL IM ONE (10:30)
[2022-05-04] MEDS ORDERED: PANTOPRAZOLE 40 MG TABEC PO ONE (10:30)
--- NOTE | 2022-05-04 10:34 | NUR ---
PT WENT TO XR
[2022-05-04] MEDS ORDERED: DICYCLOMINE HCL LIQUID 20 MG, ALUMINUM HYD/MAG/SIMETHICONE 30 ML, LIDOCAINE VISCOUS 2% ... PO ONE ×3 (12:15)
--- NOTE | 2022-05-04 12:45 | NUR ---
NOEMI FIGUEROA ATTEMPTED TO RE-EVALUATE PT. NOT FOUND IN LOBBY/OUTSIDE
[2022-05-04] MEDS ORDERED: ALUMINUM HYD/MAG/SIMETHICONE 30 ML UDC ONE (12:48)
--- NOTE | 2022-05-04 13:00 | NUR ---
NOEMI FIGUEROA ATTEMPTED TO RE-EVALUATE PT. NOT FOUND IN LOBBY/OUTSIDE
[2022-05-04] MEDS ORDERED: DICYCLOMINE HCL LIQUID 10 MG/5 ML UDC ONE (13:17)
--- NOTE | 2022-05-04 13:20 | NUR ---
PT ELOPED AT THIS TIME. PT GIVEN MAALOX AND VISCOUS LIDO BUT LEFT PRIOR TO GETTING BENTYL. ERMD AWARE. NO IV PLACED UPON ELOPEMENT.
[2022-05-05] MEDS ORDERED: FAMO-92 PO (08:27)
[2022-05-05] MEDS ORDERED: METO-486 PO (08:27)
== END 2022-05-04 13:20 | disposition left against medical advice (07) ==
LOC: MED 09:09
DX: J02.9 Acute pharyngitis, unspecified (principal); R03.0 Elevated blood-pressure reading, without diagnosis of hypertension; G43.A0 Cyclical vomiting, in migraine, not intractable; F12.90 Cannabis use, unspecified, uncomplicated; Z88.0 Allergy status to penicillin; Z79.899 Other long term (current) drug therapy
CPT/HCPCS: 70360; 71045; 93005; 96372; 99284; J1885; Q0162

== ENCOUNTER 2022-05-05 03:50 | Emergency (ER) | payer MEDICAID ==
[~2022-05-05] VITALS: Ht 188 cm; Wt 86.2 kg
[2022-05-05 04:08] VITALS: BP 150/100
--- NOTE | 2022-05-05 04:20 | NUR ---
Pt ambulatory from home with c/o epigastric pain, radiates up to his esophagus x2 days. Describes pain as burning sensation. (+) N/V. Denies diarrhea, fevers.
--- NOTE | 2022-05-05 04:22 | NUR ---
MD Mccarthy at bedside examining pt.
[2022-05-05] MEDS ORDERED: DEXT 5% /NACL 0.9% 1,000 ML IV ONE (04:35)
[2022-05-05] MEDS ORDERED: FAMOTIDINE 20 MG/2 ML VIAL IVP ONE (04:35)
[2022-05-05] MEDS ORDERED: diphenhydrAMINE 50 MG/ML VIAL IVP ONE ×2 (04:35→07:55)
[2022-05-05] MEDS ORDERED: HALOPERIDOL IM 5 MG/ML VIAL IVP ONE (04:35)
--- NOTE | 2022-05-05 05:05 | NUR ---
Pt medicated via IVP as ordered by MD Mccarthy. Tolerated well.
[2022-05-05 05:45] LABS: BASOPHILS % (AUTO) 0.4 % (0.0-2.0); EOSINOPHILS % (AUTO) 0.1 % (0.0-4.0); HEMATOCRIT 39.8 % (36-52); HEMOGLOBIN 13.9 g/dL (12.0-18.0); LYMPHOCYTES # (AUTO) 0.8 K/uL (2.0-11.5); MEAN CORPUSCULAR HEMOGLOBIN 32 pg (27-31); MEAN CORPUSCULAR HGB CONC 35 g/dL (33-37); MEAN CORPUSCULAR VOLUME 91.2 fL (80-94); MONOCYTES # (AUTO) 0.2 K/uL (0.8-1.0); MONOCYTES % (AUTO) 3.2 % (1.7-9.3); NEUTROPHILS # (AUTO) 4.1 K/uL (1.8-7.7); NEUTROPHILS % (AUTO) 81.3 % (42.2-75.2); PLATELET COUNT (AUTO) 24 K/uL (140-450); RED BLOOD CELL COUNT(AUTO) 4.36 MIL/uL (4.20-6.10); RED CELL DISTRIBUTION WIDTH 13.4 % (11.6-13.7); WHITE BLOOD COUNT (AUTO) 5.1 K/uL (4.8-10.8)
[2022-05-05 06:05] LABS: ALBUMIN 3.9 g/dL (3.4-5.0); ANION GAP 10.2 (8-16); CARBON DIOXIDE 26.6 mmol/L (21-32); CREATININE 1.3 mg/dL (0.6-1.3); TOTAL BILIRUBIN 0.8 mg/dL (0.0-1.0)
[2022-05-05 06:14] LABS: POTASSIUM 2.8 mmol/L (3.5-5.1)
[2022-05-05] MEDS ORDERED: POTASSIUM CHLORIDE 10 MEQ TABER PO ONE (06:30)
[2022-05-05] MEDS ORDERED: KCL 20 MEQ IN 100 mL PREMIX 100 ML IV ONE (06:30)
[2022-05-05] MEDS ORDERED: MAG SULF 2000 MG/WATER PREMIX 50 ML IV ONE (06:30)
--- NOTE | 2022-05-05 06:35 | NUR ---
Potassium 20 MEQ IVPB over 2 hours started for CL Potassium level of 2.8 as ordered by MD Mccarthy.
[2022-05-05] MEDS ORDERED: HALOPERIDOL IM 5 MG/ML VIAL IM ONE (07:25)
[2022-05-05] MEDS ORDERED: NACL 0.9% 500 ML IV ONE (07:25)
[2022-05-05] MEDS ORDERED: METOCLOPRAMIDE 10 MG/2 ML INJ VIAL IVP ONE (07:25)
--- NOTE | 2022-05-05 07:30 | NUR ---
Care endorsed to ELISA Meek for continuity of care. Questions/concerns answered.
[2022-05-05] MEDS ORDERED: diphenhydrAMINE 50 MG/ML VIAL ONE (07:55)
[2022-05-05] MEDS ORDERED: FAMO-92 PO (08:27)
[2022-05-05] MEDS ORDERED: METO-486 PO (08:27)
--- NOTE | 2022-05-05 08:52 | NUR ---
pt awake and alert, pt denies ongoing pain, n/v or other sy,ptoms. vss. up for discharge after mag..
[2022-05-05 10:38] VITALS: BP 125/72
--- NOTE | 2022-05-05 10:38 | NUR ---
Patient discharged with v/s stable. Written and verbal after care instructions given and explained. Patient alert, oriented and verbalized understanding of instructions. Ambulatory with steady gait. All questions addressed prior to discharge. ID band removed. Patient advised to follow up with PMD. Rx of PEPCID, REGLAN given. Patient educated on indication of medication including possible reaction and side effects. Opportunity to ask questions provided and answered.
== END 2022-05-05 10:38 | disposition home or self-care (01) ==
LOC: MED 03:50
DX: R11.10 Vomiting, unspecified (principal); R10.13 Epigastric pain; F12.90 Cannabis use, unspecified, uncomplicated; Z88.0 Allergy status to penicillin; Z79.899 Other long term (current) drug therapy
CPT/HCPCS: 36415; 80053; 83690; 85025; 96361; 96365; 96372; 96375; 96376; 99285; J1200; J1630; J2765; J3475; J3480; J3490; J7030

== ENCOUNTER 2022-06-11 04:04 | Emergency (ER) | payer MEDICAID ==
[~2022-06-11] VITALS: Ht 188 cm; Wt 88.5 kg
[~2022-06-11 04:04] MED LIST changes: +FAMO-92 PO; +METO-486 PO
[2022-06-11 04:08] VITALS: BP 121/80
--- NOTE | 2022-06-11 04:12 | NUR ---
Patient taken to bed 12.
--- NOTE | 2022-06-11 04:13 | NUR ---
Patient resting in bed, A/Ox4, chest rise and fall symmetrical, no s/s of distress, on monitor.
--- NOTE | 2022-06-11 04:15 | NUR ---
Dr. Pena examining patient.
[2022-06-11] MEDS ORDERED: HALOPERIDOL IM 5 MG/ML VIAL IM ONE (04:20)
[2022-06-11] MEDS ORDERED: KETOROLAC 30 MG/ML VIAL IM ONE (04:20)
[2022-06-11] MEDS ORDERED: diphenhydrAMINE 50 MG/ML VIAL IM ONE (04:20)
[2022-06-11 04:46] LABS: BASOPHILS % (AUTO) 0.4 % (0.0-2.0); EOSINOPHILS % (AUTO) 0.4 % (0.0-4.0); HEMATOCRIT 42.9 % (36-52); HEMOGLOBIN 14.9 g/dL (12.0-18.0); LYMPHOCYTES # (AUTO) 1.8 K/uL (2.0-11.5); LYMPHOCYTES % (AUTO) 25.9 % (20.5-51.1); MEAN CORPUSCULAR HEMOGLOBIN 32 pg (27-31); MEAN CORPUSCULAR HGB CONC 35 g/dL (33-37); MEAN CORPUSCULAR VOLUME 91.7 fL (80-94); MONOCYTES # (AUTO) 0.6 K/uL (0.8-1.0); NEUTROPHILS # (AUTO) 4.6 K/uL (1.8-7.7); NEUTROPHILS % (AUTO) 65.3 % (42.2-75.2); PLATELET COUNT (AUTO) 246 K/uL (140-450); RED BLOOD CELL COUNT(AUTO) 4.68 MIL/uL (4.20-6.10); RED CELL DISTRIBUTION WIDTH 13.7 % (11.6-13.7)
[2022-06-11 05:02] LABS: CARBON DIOXIDE 25.5 mmol/L (21-32); CREATININE 1.1 mg/dL (0.6-1.3); GFR ARICAN-AMERICAN 99 mL/min (>90)
[2022-06-11 05:16] LABS: ALBUMIN 4.1 g/dL (3.4-5.0); ANION GAP 15.1 (8-16); ASPARTATE AMINOTRANSFERASE 22 U/L (15-37); CHLORIDE 102 mmol/L (98-107); GLUCOSE 102 mg/dL (74-106); LIPASE 124 U/L (73-393); POTASSIUM 3.4 mmol/L (3.5-5.1); SODIUM SERUM 140 mmol/L (136-145); TOTAL BILIRUBIN 0.6 mg/dL (0.0-1.0); UREA NITROGEN, BLOOD 9 mg/dL (7-18)
--- NOTE | 2022-06-11 05:45 | NUR ---
Patient resting in bed with eyes closed, A/Ox4, chest rise and fall symmetrical, no c/o pain or s/s of distress, on monitor.
--- NOTE | 2022-06-11 06:21 | NUR ---
PATIENT ELOPED FROM FACILITY. DISCHARGE INSTRUCTIONS NOT GIVEN TO PATIENT. DR. Aldana NOTIFIED.
[2022-06-11 06:22] VITALS: BP 128/72
== END 2022-06-11 06:22 | disposition left against medical advice (07) ==
LOC: MED 04:04
DX: R07.2 Precordial pain (principal); R11.2 Nausea with vomiting, unspecified; F12.90 Cannabis use, unspecified, uncomplicated; Z79.899 Other long term (current) drug therapy; Z79.1 Long term (current) use of non-steroidal anti-inflammatories (NSAID); Z88.0 Allergy status to penicillin
CPT/HCPCS: 36415; 71045; 80053; 83690; 84484; 85025; 93005; 96372; 99285; J1200; J1630; J1885; Q0092

== ENCOUNTER 2022-06-14 08:34 | Emergency (ER) | payer MEDICAID ==
[~2022-06-14] VITALS: Ht 188 cm; Wt 88.5 kg
[2022-06-14 08:40] VITALS: BP 134/83
--- NOTE | 2022-06-14 08:44 | NUR ---
ABDOMINAL PAIN (11/24), N/V X 3. NO NEW FOOD, NO RECENT TRAVEL, NO SICK CONTACTS. DENIES FEVERS.
[2022-06-14] MEDS ORDERED: diphenhydrAMINE 50 MG/ML VIAL IM ONE (08:55)
[2022-06-14] MEDS ORDERED: ONDANSETRON 4 MG ODT PO ONE (08:55)
[2022-06-14] MEDS ORDERED: HALOPERIDOL IM 5 MG/ML VIAL IM ONE (08:55)
[2022-06-14] MEDS ORDERED: LORazepam 2 MG/ML VIAL IM ONE (08:55)
--- NOTE | 2022-06-14 09:00 | NUR ---
pt ambulated to bed 01
--- NOTE | 2022-06-14 09:33 | NUR ---
Patient appears to be resting comfortably in bed. Vital Signs within normal limits. Respirations even and unlabored.
[2022-06-14 10:15] VITALS: BP 134/83
--- NOTE | 2022-06-14 10:15 | NUR ---
pt eloped at this time
== END 2022-06-14 10:15 | disposition left against medical advice (07) ==
LOC: MED 08:34
DX: R11.2 Nausea with vomiting, unspecified (principal); R10.84 Generalized abdominal pain; Z88.0 Allergy status to penicillin; Z79.899 Other long term (current) drug therapy
CPT/HCPCS: 96372; 99284; J1200; J1630; J2060; Q0162

== ENCOUNTER 2022-06-17 07:25 | Emergency (ER) | payer MEDICAID ==
[~2022-06-17] VITALS: Ht 188 cm; Wt 88.5 kg
[2022-06-17 07:33] VITALS: BP 130/93
[2022-06-17] MEDS ORDERED: HALOPERIDOL IM 5 MG/ML VIAL IM ONE (08:05)
[2022-06-17] MEDS ORDERED: NACL 0.9% 1,000 ML IV SCH (08:05)
[2022-06-17] MEDS ORDERED: ONDANSETRON 4 MG/2 ML VIAL IVP ONE (08:05)
--- NOTE | 2022-06-17 09:08 | NUR ---
pt ambulatory to bed 01
--- NOTE | 2022-06-17 09:09 | NUR ---
PT AMBULATED TO ER BED 1
[2022-06-17 09:18] LABS: BASOPHILS % (AUTO) 0.5 % (0.0-2.0); EOSINOPHILS % (AUTO) 0.1 % (0.0-4.0); HEMATOCRIT 44.2 % (36-52); HEMOGLOBIN 15.4 g/dL (12.0-18.0); LYMPHOCYTES # (AUTO) 1.3 K/uL (2.0-11.5); LYMPHOCYTES % (AUTO) 16.7 % (20.5-51.1); MEAN CORPUSCULAR HEMOGLOBIN 32 pg (27-31); MEAN CORPUSCULAR HGB CONC 35 g/dL (33-37); MEAN CORPUSCULAR VOLUME 91.9 fL (80-94); MONOCYTES # (AUTO) 0.3 K/uL (0.8-1.0); MONOCYTES % (AUTO) 4.4 % (1.7-9.3); NEUTROPHILS % (AUTO) 78.3 % (42.2-75.2); PLATELET COUNT (AUTO) 240 K/uL (140-450); RED CELL DISTRIBUTION WIDTH 13.5 % (11.6-13.7); WHITE BLOOD COUNT (AUTO) 7.7 K/uL (4.8-10.8)
[2022-06-17] MEDS ORDERED: HALOPERIDOL IM 5 MG/ML VIAL ONE (09:24)
[2022-06-17] MEDS ORDERED: diphenhydrAMINE 50 MG/ML VIAL IM ONE (09:25)
--- NOTE | 2022-06-17 09:48 | NUR ---
PATIENT ELOPED FROM FACILITY. DISCHARGE INSTRUCTIONS NOT GIVEN TO PATIENT. DR. PONCE NOTIFIED.
--- NOTE | 2022-06-17 09:48 | NUR ---
AMBULATES WITH STEADY GAIT. NOTED PT LEAVING ROOM "I GOTTA GO TO WORK"
[2022-06-17 09:55] LABS: ALBUMIN 4.3 g/dL (3.4-5.0); ANION GAP 14.6 (8-16); CARBON DIOXIDE 25.1 mmol/L (21-32); POTASSIUM 3.7 mmol/L (3.5-5.1); TOTAL BILIRUBIN 0.7 mg/dL (0.0-1.0)
[2022-06-17 10:07] LABS: APPEARANCE,URINE CLEAR (CLEAR); BILIRUBIN,URINE NEGATIVE (NEGATIVE); BLOOD, URINE NEGATIVE (NEGATIVE); COLOR,URINE YELLOW (YELLOW); LEUKOCYTE ESTERASE ,URINE NEGATIVE (NEGATIVE); NITRITE, URINE NEGATIVE (NEGATIVE); PH,URINE 8.5 (5.0-9.0); UGLUCOSE NEGATIVE (NEGATIVE)
[2022-06-17 10:27] LABS: BARBITURATE, URINE NEGATIVE ng/ml (NEG <=200); BENZODIAZEPINE, URINE NEGATIVE ng/mL (NEG <=200); CANNABINOID, URINE POSITIVE ng/mL (NEG <=50); COCAINE, URINE NEGATIVE ng/mL (NEG <=300); OPIATE, URINE NEGATIVE ng/mL (NEG <=2000); PHENCYCLIDINE SCREEN,URINE NEGATIVE ng/mL (NEG <=25)
== END 2022-06-17 09:48 | disposition left against medical advice (07) ==
LOC: MED 07:25
DX: R11.2 Nausea with vomiting, unspecified (principal); R10.84 Generalized abdominal pain; Z71.6 Tobacco abuse counseling; Z90.49 Acquired absence of other specified parts of digestive tract; Z79.899 Other long term (current) drug therapy; Z79.1 Long term (current) use of non-steroidal anti-inflammatories (NSAID); Z88.0 Allergy status to penicillin
CPT/HCPCS: 36415; 80053; 80305; 83690; 85025; 96372; 99284; J1200; J1630

== ENCOUNTER 2022-07-04 07:32 | Emergency (ER) | payer MEDICAID ==
[~2022-07-04] VITALS: Ht 188 cm; Wt 84.8 kg
[2022-07-04 07:48] VITALS: BP 142/87
--- NOTE | 2022-07-04 07:49 | NUR ---
patient ambulated to lobby without assistance.
[2022-07-04] MEDS ORDERED: MORPHINE SULFATE 4 MG/ML SYR IVP ONE (08:05)
[2022-07-04] MEDS ORDERED: ONDANSETRON 4 MG/2 ML VIAL IVP ONE (08:05)
[2022-07-04] MEDS ORDERED: ONDANSETRON 4 MG ODT PO ONE (08:15)
--- NOTE | 2022-07-04 08:52 | NUR ---
patient ambulated to chair A to get blood draw. Patient is moaning "it hurts, it hurts" while holding his right side with his hand
[2022-07-04 09:20] LABS: BASOPHILS % (AUTO) 0.2 % (0.0-2.0); EOSINOPHILS % (AUTO) 0.3 % (0.0-4.0); HEMATOCRIT 44.4 % (36-52); HEMOGLOBIN 15.4 g/dL (12.0-18.0); LYMPHOCYTES # (AUTO) 1.6 K/uL (2.0-11.5); LYMPHOCYTES % (AUTO) 14.6 % (20.5-51.1); MEAN CORPUSCULAR HEMOGLOBIN 32 pg (27-31); MEAN CORPUSCULAR HGB CONC 35 g/dL (33-37); MEAN CORPUSCULAR VOLUME 92.3 fL (80-94); MONOCYTES # (AUTO) 0.9 K/uL (0.8-1.0); MONOCYTES % (AUTO) 8.4 % (1.7-9.3); NEUTROPHILS # (AUTO) 8.7 K/uL (1.8-7.7); NEUTROPHILS % (AUTO) 76.5 % (42.2-75.2); PLATELET COUNT (AUTO) 246 K/uL (140-450); RED BLOOD CELL COUNT(AUTO) 4.82 MIL/uL (4.20-6.10); RED CELL DISTRIBUTION WIDTH 13.4 % (11.6-13.7); WHITE BLOOD COUNT (AUTO) 11.3 K/uL (4.8-10.8)
[2022-07-04 09:50] LABS: ALBUMIN 4.6 g/dL (3.4-5.0); ANION GAP 17.1 (8-16); ASPARTATE AMINOTRANSFERASE 34 U/L (15-37); CARBON DIOXIDE 23.2 mmol/L (21-32); CHLORIDE 100 mmol/L (98-107); CREATININE 1.2 mg/dL (0.6-1.3); GFR ARICAN-AMERICAN 90 mL/min (>90); GLUCOSE 124 mg/dL (74-106); LIPASE 134 U/L (73-393); POTASSIUM 3.3 mmol/L (3.5-5.1); SODIUM SERUM 137 mmol/L (136-145); TOTAL BILIRUBIN 0.9 mg/dL (0.0-1.0); UREA NITROGEN, BLOOD 7 mg/dL (7-18)
--- NOTE | 2022-07-04 10:10 | NUR ---
DR OSMAN ATTEMPTING TO FIND PT IN LOBBY FOR REEVAL, NOT FOUND IN LBBY OR PARKING LOT
--- NOTE | 2022-07-04 10:18 | NUR ---
PT NOT FOUND IN LOBBY OR PARKING LOT
--- NOTE | 2022-07-04 10:23 | NUR ---
PATIENT ELOPED FROM FACILITY. DISCHARGE INSTRUCTIONS NOT GIVEN TO PATIENT. DR. OSMAN NOTIFIED.
== END 2022-07-04 10:10 | disposition left against medical advice (07) ==
LOC: MED 07:32
DX: R10.9 Unspecified abdominal pain (principal); R07.89 Other chest pain; R11.2 Nausea with vomiting, unspecified; Z88.0 Allergy status to penicillin; Z79.899 Other long term (current) drug therapy
CPT/HCPCS: 36415; 71046; 80053; 83690; 84484; 85025; 99284; Q0162

== ENCOUNTER 2022-07-29 04:30 | Emergency (ER) | payer MEDICAID ==
[~2022-07-29] VITALS: Ht 188 cm; Wt 89.4 kg
[2022-07-29 04:30] VITALS: BP 130/61; PULSE 119; RESP 16; TEMP 97.6; O2SAT 96
--- NOTE | 2022-07-29 04:30 | NUR ---
TO BED AMBULATORY
--- NOTE | 2022-07-29 04:30 | NUR ---
CHEST PAIN AN HOUR AGO
--- NOTE | 2022-07-29 04:41 | NUR ---
Patient being evaluated by physician at bedside.
[2022-07-29] MEDS ORDERED: LORazepam 2 MG/ML VIAL IVP ONE ×2 (04:45→04:50)
[2022-07-29] MEDS ORDERED: DILTIAZEM 25 MG/5 ML VIAL IVP ONE ×2 (04:45→04:50)
[2022-07-29] MEDS ORDERED: NACL 0.9% 1,000 ML IV ONE (04:45)
[2022-07-29 05:22] LABS: BASOPHILS % (AUTO) 0.6 % (0.0-2.0); EOSINOPHILS # (AUTO) 0.1 K/uL (0-0.4); EOSINOPHILS % (AUTO) 0.8 % (0.0-4.0); HEMOGLOBIN 15.1 g/dL (12.0-18.0); LYMPHOCYTES # (AUTO) 2.8 K/uL (2.0-11.5); LYMPHOCYTES % (AUTO) 36.8 % (20.5-51.1); MEAN CORPUSCULAR HEMOGLOBIN 32 pg (27-31); MEAN CORPUSCULAR HGB CONC 34 g/dL (33-37); MEAN CORPUSCULAR VOLUME 92.4 fL (80-94); MONOCYTES # (AUTO) 0.5 K/uL (0.8-1.0); MONOCYTES % (AUTO) 7.2 % (1.7-9.3); NEUTROPHILS # (AUTO) 4.1 K/uL (1.8-7.7); NEUTROPHILS % (AUTO) 54.6 % (42.2-75.2); PLATELET COUNT (AUTO) 231 K/uL (140-450); RED BLOOD CELL COUNT(AUTO) 4.77 MIL/uL (4.20-6.10); RED CELL DISTRIBUTION WIDTH 13.5 % (11.6-13.7); WHITE BLOOD COUNT (AUTO) 7.5 K/uL (4.8-10.8)
[2022-07-29 05:35] LABS: PROTHROMBIN TIME 10.5 secs (10.8-13.4)
[2022-07-29 05:50] LABS: ASPARTATE AMINOTRANSFERASE 21 U/L (15-37); CARBON DIOXIDE 25.4 mmol/L (21-32); CHLORIDE 104 mmol/L (98-107); CREATININE 1.2 mg/dL (0.6-1.3); GFR ARICAN-AMERICAN 89 mL/min (>90); GLUCOSE 125 mg/dL (74-106); LIPASE 60 U/L (73-393); POTASSIUM 3.4 mmol/L (3.5-5.1); SODIUM SERUM 140 mmol/L (136-145); TOTAL BILIRUBIN 0.8 mg/dL (0.0-1.0); UREA NITROGEN, BLOOD 10 mg/dL (7-18)
--- NOTE | 2022-07-29 06:20 | NUR ---
pt complaining for chest pain pressure
[2022-07-29] MEDS ORDERED: ASPI-1822 PO (06:25)
[2022-07-29] MEDS ORDERED: FAMO-92 PO (06:25)
[2022-07-29] MEDS ORDERED: ONDA-188 PO (06:25)
[2022-07-29] MEDS ORDERED: FAMOTIDINE 20 MG/2 ML VIAL IVP ONE (06:30)
[2022-07-29] MEDS ORDERED: KETOROLAC 30 MG/ML VIAL IVP ONE (06:30)
[2022-07-29 07:19] VITALS: BP 125/101; PULSE 94; RESP 14; TEMP 98; O2SAT 96
--- NOTE | 2022-07-29 07:23 | NUR ---
Patient discharged with v/s stable. Written and verbal after care instructions given and explained. Patient alert, oriented and verbalized understanding of instructions. Ambulatory with steady gait. All questions addressed prior to discharge. ID band removed. Patient advised to follow up with PMD. Rx of aspirin famotidine, zofran given. Patient educated on indication of medication including possible reaction and side effects. Opportunity to ask questions provided and answered.
== END 2022-07-29 07:19 | disposition home or self-care (01) ==
LOC: MED 04:30
DX: I48.20 Chronic atrial fibrillation, unspecified (principal); R11.10 Vomiting, unspecified; R07.9 Chest pain, unspecified; R00.2 Palpitations; F12.90 Cannabis use, unspecified, uncomplicated; Z88.0 Allergy status to penicillin; Z79.899 Other long term (current) drug therapy
CPT/HCPCS: 36415; 71045; 80053; 83690; 84443; 84484; 85025; 85610; 85730; 93005; 96361; 96374; 96375; 99291; G0482; J1885; J2060; J3490; J7030; Q0092

== ENCOUNTER 2022-09-18 00:39 | Emergency (ER) | payer MEDICAID ==
[~2022-09-18] VITALS: Ht 188 cm; Wt 86.2 kg
[~2022-09-18 00:39] MED LIST changes: +ASPI-1822 PO; +ONDA-188 PO
[2022-09-18 00:50] VITALS: BP 129/89; PULSE 83; RESP 17; TEMP 98.5; O2SAT 98
--- NOTE | 2022-09-18 00:50 | NUR ---
TO BED AMBULATORY
[2022-09-18] MEDS ORDERED: HALOPERIDOL IM 5 MG/ML VIAL IVP ONE (01:20)
[2022-09-18] MEDS ORDERED: NACL 0.9% 1,000 ML IV ONE (01:20)
[2022-09-18] MEDS ORDERED: diphenhydrAMINE 50 MG/ML VIAL IVP ONE (01:20)
[2022-09-18] MEDS ORDERED: FAMOTIDINE 20 MG/2 ML VIAL IVP ONE (01:20)
--- NOTE | 2022-09-18 01:20 | NUR ---
c/o generalized abdominal pain 11/24. per pt, pmhx gastritis. allergy to penicillin
[2022-09-18] MEDS ORDERED: HALOPERIDOL IM 5 MG/ML VIAL IM ONE (01:40)
[2022-09-18 01:48] LABS: BASOPHILS % (AUTO) 0.3 % (0.0-2.0); EOSINOPHILS % (AUTO) 0.1 % (0.0-4.0); HEMATOCRIT 40.6 % (36-52); HEMOGLOBIN 14.3 g/dL (12.0-18.0); LYMPHOCYTES % (AUTO) 8.8 % (20.5-51.1); MEAN CORPUSCULAR HEMOGLOBIN 32 pg (27-31); MEAN CORPUSCULAR HGB CONC 35 g/dL (33-37); MEAN CORPUSCULAR VOLUME 91.2 fL (80-94); MONOCYTES # (AUTO) 0.4 K/uL (0.8-1.0); MONOCYTES % (AUTO) 3.6 % (1.7-9.3); NEUTROPHILS # (AUTO) 9.7 K/uL (1.8-7.7); NEUTROPHILS % (AUTO) 87.2 % (42.2-75.2); PLATELET COUNT (AUTO) 275 K/uL (140-450); RED BLOOD CELL COUNT(AUTO) 4.45 MIL/uL (4.20-6.10); RED CELL DISTRIBUTION WIDTH 13.5 % (11.6-13.7); WHITE BLOOD COUNT (AUTO) 11.1 K/uL (4.8-10.8)
[2022-09-18 01:58] LABS: ALBUMIN 4.3 g/dL (3.4-5.0); ANION GAP 17.5 (8-16); CARBON DIOXIDE 24.7 mmol/L (21-32); CREATININE 1.1 mg/dL (0.6-1.3); POTASSIUM 4.2 mmol/L (3.5-5.1); TOTAL BILIRUBIN 0.7 mg/dL (0.0-1.0)
--- NOTE | 2022-09-18 02:50 | NUR ---
PO challenge done. no episodes of vomiting, pt denies any nausea. ERMD made aware.
[2022-09-18] MEDS ORDERED: ONDA-188 SL (02:59)
[2022-09-18] MEDS ORDERED: FAMO-92 PO (02:59)
[2022-09-18 03:17] VITALS: BP 129/89; PULSE 83; RESP 17; TEMP 98.5; O2SAT 98
--- NOTE | 2022-09-18 03:17 | NUR ---
Patient discharged with v/s stable. Written and verbal after care instructions given and explained. New rx pepcid and zofran. Patient verbalized understanding. Ambulatory with steady gait. All questions addressed prior to discharge. Advised to follow up with PMD.
== END 2022-09-18 03:17 | disposition home or self-care (01) ==
LOC: MED 00:39
DX: K29.70 Gastritis, unspecified, without bleeding (principal); R11.2 Nausea with vomiting, unspecified; I10 Essential (primary) hypertension; F12.90 Cannabis use, unspecified, uncomplicated; Z88.0 Allergy status to penicillin; Z79.899 Other long term (current) drug therapy; Z90.49 Acquired absence of other specified parts of digestive tract
CPT/HCPCS: 36415; 80053; 83690; 85025; 96361; 96372; 96374; 96375; 99284; J1200; J1630; J3490; J7030

== ENCOUNTER 2022-10-15 22:11 | Emergency (ER) | payer MEDICAID ==
[~2022-10-15] VITALS: Ht 188 cm; Wt 86.2 kg
[2022-10-16] VITALS: BP 150/101; PULSE 100; RESP 24; TEMP 98.1; O2SAT 100
[2022-10-16] MEDS ORDERED: HALOPERIDOL IM 5 MG/ML VIAL IM ONE ×2 (00:10→02:25)
[2022-10-16] MEDS ORDERED: NACL 0.9% 1,000 ML IV ONE (00:10)
[2022-10-16] MEDS ORDERED: diphenhydrAMINE 50 MG/ML VIAL IVP ONE (00:10)
[2022-10-16] MEDS ORDERED: METOCLOPRAMIDE 10 MG/2 ML INJ VIAL IVP ONE (00:10)
[2022-10-16] MEDS ORDERED: FAMOTIDINE 20 MG/2 ML VIAL IVP ONE (00:20)
[2022-10-16] MEDS ORDERED: LORazepam 2 MG/ML VIAL IVP ONE (02:25)
[2022-10-16] MEDS ORDERED: ONDANSETRON 4 MG/2 ML VIAL IVP ONE (02:25)
[2022-10-16 02:30] LABS: BASOPHILS % (AUTO) 0.4 % (0.0-2.0); HEMATOCRIT 40.3 % (36-52); HEMOGLOBIN 14.3 g/dL (12.0-18.0); LYMPHOCYTES # (AUTO) 0.8 K/uL (2.0-11.5); LYMPHOCYTES % (AUTO) 12.5 % (20.5-51.1); MEAN CORPUSCULAR HEMOGLOBIN 32 pg (27-31); MEAN CORPUSCULAR HGB CONC 36 g/dL (33-37); MONOCYTES # (AUTO) 0.3 K/uL (0.8-1.0); MONOCYTES % (AUTO) 4.3 % (1.7-9.3); NEUTROPHILS % (AUTO) 82.8 % (42.2-75.2); PLATELET COUNT (AUTO) 220 K/uL (140-450); RED BLOOD CELL COUNT(AUTO) 4.43 MIL/uL (4.20-6.10); RED CELL DISTRIBUTION WIDTH 13.4 % (11.6-13.7)
[2022-10-16 02:46] LABS: ANION GAP 11.1 (8-16); CALCIUM 8.6 mg/dL (8.5-10.1); CREATININE 1.1 mg/dL (0.6-1.3); POTASSIUM 3.1 mmol/L (3.5-5.1); TOTAL BILIRUBIN 0.8 mg/dL (0.0-1.0); TOTAL PROTEIN, SERUM 6.8 g/dL (6.4-8.2)
[2022-10-16] MEDS ORDERED: POTASSIUM CHLORIDE 10 MEQ TABER PO ONE (02:50)
[2022-10-16] MEDS ORDERED: METO-485 PO (04:41)
[2022-10-16] MEDS ORDERED: PANT40EC PO (04:42)
[2022-10-16 05:22] VITALS: BP 141/94; PULSE 72; RESP 16; TEMP 98.3; O2SAT 97
== END 2022-10-16 05:25 | disposition home or self-care (01) ==
LOC: MED 22:11
DX: R11.10 Vomiting, unspecified (principal); K29.70 Gastritis, unspecified, without bleeding; F12.20 Cannabis dependence, uncomplicated; R10.13 Epigastric pain; I10 Essential (primary) hypertension; Z88.0 Allergy status to penicillin; Z79.899 Other long term (current) drug therapy; Z90.49 Acquired absence of other specified parts of digestive tract
CPT/HCPCS: 36415; 71045; 80053; 83690; 85025; 96361; 96372; 96374; 96375; 99284; J1200; J1630; J2060; J2405; J2765; J3490; J7030; Q0092

== ENCOUNTER 2022-10-17 18:44 | Emergency (ER) | payer MEDICAID ==
[~2022-10-17] VITALS: Ht 188 cm; Wt 79.8 kg
[2022-10-17 18:58] VITALS: BP 135/102; PULSE 95; RESP 18; TEMP 98; O2SAT 100
[2022-10-17] MEDS ORDERED: NACL 0.9% 1,000 ML IV ONE (20:35)
[2022-10-17] MEDS ORDERED: HALOPERIDOL IM 5 MG/ML VIAL IM ONE (20:35)
[2022-10-17] MEDS ORDERED: LORazepam 2 MG/ML VIAL IVP ONE (20:35)
[2022-10-17 20:56] LABS: BASOPHILS % (AUTO) 0.3 % (0.0-2.0); HEMATOCRIT 39.9 % (36-52); LYMPHOCYTES # (AUTO) 0.9 K/uL (2.0-11.5); LYMPHOCYTES % (AUTO) 14.7 % (20.5-51.1); MEAN CORPUSCULAR HEMOGLOBIN 32 pg (27-31); MEAN CORPUSCULAR HGB CONC 35 g/dL (33-37); MEAN CORPUSCULAR VOLUME 90.6 fL (80-94); MONOCYTES # (AUTO) 0.3 K/uL (0.8-1.0); MONOCYTES % (AUTO) 4.7 % (1.7-9.3); NEUTROPHILS # (AUTO) 4.9 K/uL (1.8-7.7); NEUTROPHILS % (AUTO) 80.3 % (42.2-75.2); PLATELET COUNT (AUTO) 228 K/uL (140-450); RED BLOOD CELL COUNT(AUTO) 4.41 MIL/uL (4.20-6.10); RED CELL DISTRIBUTION WIDTH 13.1 % (11.6-13.7); WHITE BLOOD COUNT (AUTO) 6.2 K/uL (4.8-10.8)
[2022-10-17 21:12] LABS: ALBUMIN 4.4 g/dL (3.4-5.0); CARBON DIOXIDE 26.2 mmol/L (21-32); CREATININE 1.3 mg/dL (0.6-1.3); POTASSIUM 3.2 mmol/L (3.5-5.1); TOTAL BILIRUBIN 1.1 mg/dL (0.0-1.0); TOTAL PROTEIN, SERUM 7.1 g/dL (6.4-8.2)
[2022-10-17] MEDS ORDERED: ALUMINUM HYD/MAG/SIMETHICONE 30 ML UDC PO ONE (21:35)
[2022-10-17 21:55] LABS: AMPHETAMINE, URINE NEGATIVE ng/ml (NEG <=1000); BARBITURATE, URINE NEGATIVE ng/ml (NEG <=200); BENZODIAZEPINE, URINE POSITIVE ng/mL (NEG <=200); CANNABINOID, URINE POSITIVE ng/mL (NEG <=50); COCAINE, URINE NEGATIVE ng/mL (NEG <=300); OPIATE, URINE NEGATIVE ng/mL (NEG <=2000); PHENCYCLIDINE SCREEN,URINE NEGATIVE ng/mL (NEG <=25)
[2022-10-17 22:00] VITALS: BP 134/81; PULSE 85; RESP 11; O2SAT 95
== END 2022-10-17 23:05 | disposition home or self-care (01) ==
LOC: MED 18:44
DX: R11.2 Nausea with vomiting, unspecified (principal); R10.9 Unspecified abdominal pain; I10 Essential (primary) hypertension; Z88.0 Allergy status to penicillin; Z79.899 Other long term (current) drug therapy
CPT/HCPCS: 36415; 80053; 80305; 83690; 85025; 96361; 96372; 96374; 99284; J1630; J2060; J7030

== ENCOUNTER 2022-11-26 13:30 | Emergency (ER) | payer MEDICAID ==
[~2022-11-26] VITALS: Ht 188 cm; Wt 79.4 kg
[2022-11-26 13:42] VITALS: BP 135/106; PULSE 75; RESP 22; TEMP 98.3; O2SAT 97
[2022-11-26] MEDS ORDERED: FAMOTIDINE 20 MG/2 ML VIAL IVP ONE (14:20)
[2022-11-26] MEDS ORDERED: METOCLOPRAMIDE 10 MG/2 ML INJ VIAL IVP ONE (14:20)
[2022-11-26] MEDS ORDERED: DEXT 5% /NACL 0.9% 1,000 ML IV ONE (14:20)
[2022-11-26 14:22] LABS: BASOPHILS % (AUTO) 0.2 % (0.0-2.0); HEMATOCRIT 43.3 % (36-52); HEMOGLOBIN 15.1 g/dL (12.0-18.0); LYMPHOCYTES # (AUTO) 0.9 K/uL (2.0-11.5); MEAN CORPUSCULAR HEMOGLOBIN 32 pg (27-31); MEAN CORPUSCULAR HGB CONC 35 g/dL (33-37); MEAN CORPUSCULAR VOLUME 90.6 fL (80-94); MONOCYTES # (AUTO) 0.3 K/uL (0.8-1.0); MONOCYTES % (AUTO) 5.3 % (1.7-9.3); NEUTROPHILS # (AUTO) 5.2 K/uL (1.8-7.7); NEUTROPHILS % (AUTO) 80.5 % (42.2-75.2); PLATELET COUNT (AUTO) 247 K/uL (140-450); RED BLOOD CELL COUNT(AUTO) 4.77 MIL/uL (4.20-6.10); RED CELL DISTRIBUTION WIDTH 13.3 % (11.6-13.7); WHITE BLOOD COUNT (AUTO) 6.4 K/uL (4.8-10.8)
[2022-11-26 14:49] LABS: ALBUMIN 4.8 g/dL (3.4-5.0); ANION GAP 19.2 (8-16); CREATININE 1.1 mg/dL (0.6-1.3); POTASSIUM 3.2 mmol/L (3.5-5.1); TOTAL BILIRUBIN 1.1 mg/dL (0.0-1.0); TOTAL PROTEIN, SERUM 8.2 g/dL (6.4-8.2)
[2022-11-26 15:06] LABS: CALCIUM 9.8 mg/dL (8.5-10.1)
[2022-11-26 15:34] VITALS: BP 117/87; PULSE 92; RESP 18; TEMP 98.7; O2SAT 100
[2022-11-26] MEDS ORDERED: ONDA-188 SL (15:43)
== END 2022-11-26 15:56 | disposition home or self-care (01) ==
LOC: MED 13:30
DX: R11.15 Cyclical vomiting syndrome unrelated to migraine (principal); R10.84 Generalized abdominal pain; I10 Essential (primary) hypertension; F12.90 Cannabis use, unspecified, uncomplicated; Z79.899 Other long term (current) drug therapy; Z79.82 Long term (current) use of aspirin; Z79.1 Long term (current) use of non-steroidal anti-inflammatories (NSAID); Z88.0 Allergy status to penicillin
CPT/HCPCS: 36415; 80053; 83690; 85025; 96361; 96374; 96375; 99284; J2765; J3490; J7030

== ENCOUNTER 2022-11-29 11:58 | Emergency (ER) | payer MEDICAID ==
[~2022-11-29] VITALS: Ht 188 cm; Wt 78.9 kg
[2022-11-29 12:21] VITALS: BP 127/73; PULSE 75; RESP 18; TEMP 98; O2SAT 97
[2022-11-29] MEDS ORDERED: diphenhydrAMINE 50 MG/ML VIAL IVP ONE (13:05)
[2022-11-29] MEDS ORDERED: NACL 0.9% 1,000 ML IV ONE (13:05)
[2022-11-29] MEDS ORDERED: KETOROLAC 30 MG/ML VIAL IVP ONE (13:05)
[2022-11-29] MEDS ORDERED: HALOPERIDOL IM 5 MG/ML VIAL IM ONE (13:05)
[2022-11-29 14:13] VITALS: BP 127/73; PULSE 75; RESP 18; TEMP 98; O2SAT 97
== END 2022-11-29 14:15 | disposition home or self-care (01) ==
LOC: MED 11:58
DX: R10.13 Epigastric pain (principal); R11.2 Nausea with vomiting, unspecified; Z79.899 Other long term (current) drug therapy
CPT/HCPCS: 96361; 96372; 96374; 96375; 99284; J1200; J1630; J1885; J7030

== ENCOUNTER 2022-12-23 13:30 | Emergency (ER) | payer MEDICAID ==
[~2022-12-23] VITALS: Ht 188 cm; Wt 83.5 kg
[2022-12-23 13:37] VITALS: BP 145/103; PULSE 62; RESP 20; TEMP 97.7; O2SAT 98
[2022-12-23 13:41] VITALS: O2SAT 98
[2022-12-23] MEDS ORDERED: HALOPERIDOL IM 5 MG/ML VIAL IM ONE (13:50)
[2022-12-23] MEDS ORDERED: LORazepam 0.5 MG TAB PO ONE (13:50)
[2022-12-23] MEDS ORDERED: ALUMINUM HYD/MAG/SIMETHICONE 30 ML UDC PO ONE (13:50)
[2022-12-23] MEDS ORDERED: NACL 0.9% 1,000 ML IV ONE (14:10)
[2022-12-23] MEDS ORDERED: METOCLOPRAMIDE 10 MG/2 ML INJ VIAL IVP ONE (14:10)
[2022-12-23] MEDS ORDERED: LORazepam 2 MG/ML VIAL ONE (14:18)
[2022-12-23] MEDS ORDERED: LORazepam 2 MG/ML VIAL IVP ONE (14:20)
== END 2022-12-23 15:07 | disposition home or self-care (01) ==
LOC: MED 13:30
DX: R11.2 Nausea with vomiting, unspecified (principal); F12.90 Cannabis use, unspecified, uncomplicated; Z79.899 Other long term (current) drug therapy; Z79.82 Long term (current) use of aspirin; Z79.1 Long term (current) use of non-steroidal anti-inflammatories (NSAID); Z88.0 Allergy status to penicillin
CPT/HCPCS: 96361; 96372; 96374; 96375; 99284; J1630; J2060; J2765

== ENCOUNTER 2022-12-25 22:10 | Emergency (ER) | payer MEDICAID ==
[~2022-12-25] VITALS: Ht 188 cm; Wt 83.9 kg
[2022-12-25 22:25] VITALS: BP 122/76; PULSE 94; RESP 16; TEMP 98.1; O2SAT 100
[2022-12-25] MEDS ORDERED: HALOPERIDOL IM 5 MG/ML VIAL IM ONE (23:00)
[2022-12-25] MEDS ORDERED: LORazepam 2 MG/ML VIAL IM ONE (23:00)
[2022-12-25] MEDS ORDERED: ONDANSETRON 4 MG ODT PO ONE (23:20)
== END 2022-12-25 23:49 | disposition home or self-care (01) ==
LOC: MED 22:10
DX: R11.2 Nausea with vomiting, unspecified (principal); F12.10 Cannabis abuse, uncomplicated; Z88.0 Allergy status to penicillin; Z79.899 Other long term (current) drug therapy; Z90.49 Acquired absence of other specified parts of digestive tract
CPT/HCPCS: 96372; 99284; J1630; J2060; Q0162

== ENCOUNTER 2022-12-28 07:48 | Emergency (ER) | payer MEDICAID ==
[~2022-12-28] VITALS: Ht 177.8 cm; Wt 90.7 kg
[2022-12-28 08:02] VITALS: BP 124/80; PULSE 87; RESP 17; TEMP 97.4; O2SAT 98
[2022-12-28] MEDS ORDERED: HALOPERIDOL IM 5 MG/ML VIAL IM ONE (08:40)
[2022-12-28] MEDS ORDERED: ONDANSETRON 4 MG/2 ML VIAL IVP ONE (08:40)
[2022-12-28] MEDS ORDERED: LORazepam 2 MG/ML VIAL IVP ONE (08:40)
[2022-12-28] MEDS ORDERED: NACL 0.9% 1,000 ML IV ONE (08:40)
[2022-12-28] MEDS ORDERED: FAMOTIDINE 20 MG/2 ML VIAL IVP ONE (08:40)
[2022-12-28] MEDS ORDERED: diphenhydrAMINE 50 MG/ML VIAL IVP ONE (09:55)
[2022-12-28] MEDS ORDERED: METOCLOPRAMIDE 10 MG/2 ML INJ VIAL IVP ONE (09:55)
[2022-12-28] MEDS ORDERED: DICYCLOMINE HCL LIQUID 20 MG, ALUMINUM HYD/MAG/SIMETHICONE 30 ML, LIDOCAINE VISCOUS 2% ... PO ONE ×3 (09:55)
[2022-12-28] MEDS ORDERED: ALUMINUM HYD/MAG/SIMETHICONE 30 ML UDC ONE (10:06)
[2022-12-28] MEDS ORDERED: DICYCLOMINE HCL LIQUID 10 MG/5 ML UDC ONE (10:06)
[2022-12-28] MEDS ORDERED: ONDA-188 PO (10:13)
[2022-12-28] MEDS ORDERED: SUCR1TAB35 PO (10:13)
[2022-12-28] MEDS ORDERED: FAMO-90 PO (10:13)
[2022-12-28 10:23] VITALS: BP 123/77; PULSE 74; RESP 17; O2SAT 98
== END 2022-12-28 10:24 | disposition home or self-care (01) ==
LOC: MED 07:48
DX: K29.70 Gastritis, unspecified, without bleeding (principal); Z79.899 Other long term (current) drug therapy
CPT/HCPCS: 71045; 96361; 96372; 96374; 96375; 99284; J1200; J1630; J2060; J2405; J2765; J3490; J7030

== ENCOUNTER 2023-01-04 07:00 | Emergency (ER) | payer MEDICAID ==
[~2023-01-04] VITALS: Ht 188 cm; Wt 83.0 kg
[~2023-01-04 07:00] MED LIST changes: +FAMO-90 PO; +SUCR1TAB35 PO
[2023-01-04 07:08] VITALS: BP 133/95; PULSE 82; RESP 20; TEMP 97.2; O2SAT 99
[2023-01-04] MEDS ORDERED: LORazepam 1 MG TAB PO ONE (07:25)
[2023-01-04] MEDS ORDERED: DICYCLOMINE HCL LIQUID 20 MG, ALUMINUM HYD/MAG/SIMETHICONE 30 ML, LIDOCAINE VISCOUS 2% ... PO ONE ×3 (07:25)
[2023-01-04] MEDS ORDERED: METOCLOPRAMIDE 10 MG/2 ML INJ VIAL IM ONE (07:25)
[2023-01-04] MEDS ORDERED: ALUMINUM HYD/MAG/SIMETHICONE 30 ML UDC ONE ×3 (07:28→07:39)
[2023-01-04] MEDS ORDERED: DICYCLOMINE HCL LIQUID 10 MG/5 ML UDC ONE ×3 (07:28→07:39)
[2023-01-04 07:47] LABS: BASOPHILS % (AUTO) 0.5 % (0.0-2.0); EOSINOPHILS % (AUTO) 0.1 % (0.0-4.0); HEMATOCRIT 42.5 % (36-52); HEMOGLOBIN 14.6 g/dL (12.0-18.0); LYMPHOCYTES # (AUTO) 1.2 K/uL (2.0-11.5); LYMPHOCYTES % (AUTO) 23.5 % (20.5-51.1); MEAN CORPUSCULAR HEMOGLOBIN 32 pg (27-31); MEAN CORPUSCULAR HGB CONC 34 g/dL (33-37); MEAN CORPUSCULAR VOLUME 91.6 fL (80-94); MONOCYTES # (AUTO) 0.3 K/uL (0.8-1.0); MONOCYTES % (AUTO) 5.6 % (1.7-9.3); NEUTROPHILS # (AUTO) 3.6 K/uL (1.8-7.7); NEUTROPHILS % (AUTO) 70.3 % (42.2-75.2); PLATELET COUNT (AUTO) 222 K/uL (140-450); RED BLOOD CELL COUNT(AUTO) 4.64 MIL/uL (4.20-6.10); RED CELL DISTRIBUTION WIDTH 13.4 % (11.6-13.7); WHITE BLOOD COUNT (AUTO) 5.2 K/uL (4.8-10.8)
[2023-01-04 08:00] LABS: ALBUMIN 4.3 g/dL (3.4-5.0); ANION GAP 16.9 (8-16); CALCIUM 9.3 mg/dL (8.5-10.1); CARBON DIOXIDE 23.5 mmol/L (21-32); POTASSIUM 3.4 mmol/L (3.5-5.1); TOTAL BILIRUBIN 0.9 mg/dL (0.0-1.0); TOTAL PROTEIN, SERUM 7.2 g/dL (6.4-8.2)
[2023-01-04] MEDS ORDERED: BEN10 PO (08:56)
[2023-01-04] MEDS ORDERED: ATA25 PO (08:56)
[2023-01-04] MEDS ORDERED: SIME80TA41 PO (08:56)
[2023-01-04 09:11] VITALS: BP 130/92; PULSE 84; RESP 16; TEMP 97.3; O2SAT 97
== END 2023-01-04 09:11 | disposition home or self-care (01) ==
LOC: MED 07:00
DX: K29.70 Gastritis, unspecified, without bleeding (principal); F41.9 Anxiety disorder, unspecified; F12.90 Cannabis use, unspecified, uncomplicated; Z90.49 Acquired absence of other specified parts of digestive tract; Z79.899 Other long term (current) drug therapy; Z79.82 Long term (current) use of aspirin; Z79.1 Long term (current) use of non-steroidal anti-inflammatories (NSAID); Z88.0 Allergy status to penicillin
CPT/HCPCS: 36415; 80053; 83690; 85025; 96372; 99283; J2765; 93005

== ENCOUNTER 2023-01-25 22:57 | Emergency (ER) | payer MEDICAID ==
[~2023-01-25] VITALS: Ht 188 cm; Wt 81.6 kg
[~2023-01-25 22:57] MED LIST changes: +ATA25 PO; +BEN10 PO; +SIME80TA41 PO
[2023-01-25 23:09] VITALS: PULSE 94; RESP 20; TEMP 97.1; O2SAT 99
[2023-01-27] MEDS ORDERED: ONDA8TAB87 PO (09:59)
[2023-01-27] MEDS ORDERED: ACET-10509 PO (09:59)
== END 2023-01-26 01:29 | disposition left against medical advice (07) ==
LOC: MED 22:57
DX: R10.9 Unspecified abdominal pain (principal); Z53.21 Procedure and treatment not carried out due to patient leaving prior to being seen by health care provider
CPT/HCPCS: 99281

== ENCOUNTER 2023-01-27 08:32 | Emergency (ER) | payer MEDICAID ==
[~2023-01-27] VITALS: Ht 188 cm; Wt 83.5 kg
[2023-01-27 08:52] VITALS: BP 126/84; PULSE 94; RESP 16; TEMP 98.8; O2SAT 99
[2023-01-27] MEDS ORDERED: HALOPERIDOL IM 5 MG/ML VIAL IM ONE (09:05)
[2023-01-27] MEDS ORDERED: ONDA8TAB87 PO (09:59)
[2023-01-27] MEDS ORDERED: ACET-10509 PO (09:59)
[2023-01-27 10:06] VITALS: BP 123/73; PULSE 82; RESP 18; TEMP 97.5; O2SAT 99
== END 2023-01-27 10:06 | disposition home or self-care (01) ==
LOC: MED 08:32
DX: R10.13 Epigastric pain (principal); R11.2 Nausea with vomiting, unspecified; F12.90 Cannabis use, unspecified, uncomplicated; Z90.49 Acquired absence of other specified parts of digestive tract; Z79.899 Other long term (current) drug therapy; Z79.82 Long term (current) use of aspirin; Z79.1 Long term (current) use of non-steroidal anti-inflammatories (NSAID); Z88.0 Allergy status to penicillin
CPT/HCPCS: 96372; 99283; J1630

== ENCOUNTER 2023-02-03 08:41 | Emergency (ER) | payer MEDICAID ==
[~2023-02-03] VITALS: Ht 188 cm; Wt 83.9 kg
[~2023-02-03 08:41] MED LIST changes: +ACET-10509 PO
[2023-02-03 08:58] VITALS: BP 130/87; PULSE 83; RESP 18; TEMP 97.4; O2SAT 92
== END 2023-02-03 11:20 | disposition left against medical advice (07) ==
LOC: MED 08:41
DX: R10.9 Unspecified abdominal pain (principal); Z53.21 Procedure and treatment not carried out due to patient leaving prior to being seen by health care provider
CPT/HCPCS: 99281

== ENCOUNTER 2023-02-14 08:49 | Emergency (ER) | payer MEDICAID ==
[~2023-02-14] VITALS: Ht 188 cm; Wt 83.9 kg
[2023-02-14 08:57] VITALS: BP 146/103; PULSE 93; RESP 22; TEMP 98.4; O2SAT 98
[2023-02-14] MEDS ORDERED: FAMOTIDINE 20 MG TAB PO ONE (09:10)
[2023-02-14] MEDS ORDERED: HALOPERIDOL IM 5 MG/ML VIAL IM ONE (09:10)
[2023-02-14] MEDS ORDERED: ALUMINUM HYD/MAG/SIMETHICONE 30 ML UDC PO ONE (09:10)
[2023-02-14 09:26] VITALS: O2SAT 100
== END 2023-02-14 10:31 | disposition left against medical advice (07) ==
LOC: MED 08:49
DX: R11.10 Vomiting, unspecified (principal); F12.90 Cannabis use, unspecified, uncomplicated; K21.9 Gastro-esophageal reflux disease without esophagitis; Z71.6 Tobacco abuse counseling; Z90.49 Acquired absence of other specified parts of digestive tract; Z98.890 Other specified postprocedural states; Z79.899 Other long term (current) drug therapy; Z79.82 Long term (current) use of aspirin; Z79.1 Long term (current) use of non-steroidal anti-inflammatories (NSAID); Z88.0 Allergy status to penicillin
CPT/HCPCS: 96372; 99283; J1630

== ENCOUNTER 2023-02-19 07:47 | Emergency (ER) | payer MEDICAID ==
[~2023-02-19] VITALS: Ht 188 cm; Wt 83.9 kg
[2023-02-19 07:50] VITALS: BP 159/82; PULSE 97; RESP 20; TEMP 98.3; O2SAT 98
[2023-02-19] MEDS ORDERED: MORPHINE SULFATE 4 MG/ML SYR IVP ONE (08:10)
[2023-02-19] MEDS ORDERED: DICYCLOMINE 10 MG CAP PO ONE (08:10)
[2023-02-19 08:38] LABS: BASOPHILS % (AUTO) 0.4 % (0.0-2.0); HEMATOCRIT 45.3 % (36-52); HEMOGLOBIN 15.9 g/dL (12.0-18.0); LYMPHOCYTES # (AUTO) 0.8 K/uL (2.0-11.5); LYMPHOCYTES % (AUTO) 23.8 % (20.5-51.1); MEAN CORPUSCULAR HEMOGLOBIN 32 pg (27-31); MEAN CORPUSCULAR HGB CONC 35 g/dL (33-37); MEAN CORPUSCULAR VOLUME 91.3 fL (80-94); MONOCYTES # (AUTO) 0.7 K/uL (0.8-1.0); MONOCYTES % (AUTO) 21.2 % (1.7-9.3); NEUTROPHILS # (AUTO) 1.9 K/uL (1.8-7.7); NEUTROPHILS % (AUTO) 54.6 % (42.2-75.2); PLATELET COUNT (AUTO) 173 K/uL (140-450); RED BLOOD CELL COUNT(AUTO) 4.96 MIL/uL (4.20-6.10); RED CELL DISTRIBUTION WIDTH 13.4 % (11.6-13.7); WHITE BLOOD COUNT (AUTO) 3.5 K/uL (4.8-10.8)
[2023-02-19 08:47] LABS: CALCIUM 9.2 mg/dL (8.5-10.1); CARBON DIOXIDE 22.3 mmol/L (21-32); CREATININE 1.1 mg/dL (0.6-1.3); POTASSIUM 3.3 mmol/L (3.5-5.1)
[2023-02-19] MEDS ORDERED: LORazepam 2 MG/ML VIAL IVP ONE (08:50)
[2023-02-19] MEDS ORDERED: HALOPERIDOL IM 5 MG/ML VIAL IM ONE (08:50)
[2023-02-19 08:52] LABS: BILIRUBIN,DIRECT 0.1 mg/dL (0.0-0.3); TOTAL BILIRUBIN 0.6 mg/dL (0.0-1.0); TOTAL PROTEIN, SERUM 8.2 g/dL (6.4-8.2)
[2023-02-19] MEDS ORDERED: DICYCLOMINE HCL LIQUID 20 MG, ALUMINUM HYD/MAG/SIMETHICONE 30 ML, LIDOCAINE VISCOUS 2% ... PO ONE ×3 (09:30)
[2023-02-19] MEDS ORDERED: DICYCLOMINE HCL LIQUID 10 MG/5 ML UDC ONE (09:33)
[2023-02-19] MEDS ORDERED: ALUMINUM HYD/MAG/SIMETHICONE 30 ML UDC ONE (09:33)
[2023-02-19] MEDS ORDERED: FAMOTIDINE 20 MG TAB PO ONE (09:35)
[2023-02-19] MEDS ORDERED: ALUMINUM HYD/MAG/SIMETHICONE 30 ML UDC PO ONE (09:35)
[2023-02-19 09:48] LABS: APPEARANCE,URINE CLEAR (CLEAR); BILIRUBIN,URINE 1+ (NEGATIVE); BLOOD, URINE 2+ (NEGATIVE); COLOR,URINE ORANGE (YELLOW); LEUKOCYTE ESTERASE ,URINE NEGATIVE (NEGATIVE); NITRITE, URINE NEGATIVE (NEGATIVE); PROTEIN,URINE 2+ (NEGATIVE); UGLUCOSE NEGATIVE (NEGATIVE); UROBILINOGEN,URINE 0.2 EU/dL (0.2 - 1)
[2023-02-19 09:58] LABS: ICTOTEST NEGATIVE (NEGATIVE)
[2023-02-19 10:01] LABS: BACTERIA,URINE FEW /HPF (None Seen); SQUAMOUS EPITHELIAL CELL,UR 0-3 (FEW) /LPF (0-3 (FEW)); WBC,URINE 0-5 /HPF (0-5)
[2023-02-19 11:40] VITALS: BP 138/96; PULSE 88; RESP 16; TEMP 97.6; O2SAT 95
== END 2023-02-19 11:45 | disposition home or self-care (01) ==
LOC: MED 07:47
DX: R10.84 Generalized abdominal pain (principal); R07.9 Chest pain, unspecified; Z79.899 Other long term (current) drug therapy
CPT/HCPCS: 36415; 74176; 80048; 80076; 81001; 83690; 84484; 85025; 93005; 96372; 96374; 96375; 99285; J1630; J2060; J2270

== ENCOUNTER 2023-02-23 15:19 | Emergency (ER) | payer MEDICAID ==
[~2023-02-23] VITALS: Ht 182.9 cm; Wt 81.6 kg
[2023-02-23 16:18] VITALS: BP 138/71; PULSE 87; RESP 18; TEMP 97; O2SAT 98
[2023-02-23] MEDS ORDERED: HALOPERIDOL IM 5 MG/ML VIAL IM ONE (16:20)
[2023-02-23] MEDS ORDERED: NACL 0.9% 1,000 ML IV ONE (16:20)
[2023-02-23] MEDS ORDERED: KETOROLAC 30 MG/ML VIAL IVP ONE (16:20)
[2023-02-23] MEDS ORDERED: LORazepam 2 MG/ML VIAL IVP ONE (16:20)
[2023-02-23] MEDS ORDERED: ONDANSETRON 4 MG/2 ML VIAL IVP ONE (16:20)
[2023-02-23 16:46] LABS: BASOPHILS % (AUTO) 0.7 % (0.0-2.0); EOSINOPHILS % (AUTO) 0.1 % (0.0-4.0); HEMATOCRIT 42.9 % (36-52); HEMOGLOBIN 15.2 g/dL (12.0-18.0); LYMPHOCYTES # (AUTO) 1.6 K/uL (2.0-11.5); LYMPHOCYTES % (AUTO) 44.2 % (20.5-51.1); MEAN CORPUSCULAR HEMOGLOBIN 32 pg (27-31); MEAN CORPUSCULAR HGB CONC 36 g/dL (33-37); MEAN CORPUSCULAR VOLUME 90.7 fL (80-94); MONOCYTES # (AUTO) 0.4 K/uL (0.8-1.0); MONOCYTES % (AUTO) 12.4 % (1.7-9.3); NEUTROPHILS # (AUTO) 1.5 K/uL (1.8-7.7); NEUTROPHILS % (AUTO) 42.6 % (42.2-75.2); PLATELET COUNT (AUTO) 146 K/uL (140-450); RED BLOOD CELL COUNT(AUTO) 4.73 MIL/uL (4.20-6.10); RED CELL DISTRIBUTION WIDTH 13.4 % (11.6-13.7); WHITE BLOOD COUNT (AUTO) 3.5 K/uL (4.8-10.8)
[2023-02-23 17:03] LABS: ALBUMIN 4.1 g/dL (3.4-5.0); ANION GAP 13.9 (8-16); CALCIUM 9.4 mg/dL (8.5-10.1); CARBON DIOXIDE 25.6 mmol/L (21-32); CREATININE 0.8 mg/dL (0.6-1.3); POTASSIUM 3.5 mmol/L (3.5-5.1); TOTAL BILIRUBIN 0.6 mg/dL (0.0-1.0); TOTAL PROTEIN, SERUM 7.4 g/dL (6.4-8.2)
[2023-02-23] MEDS ORDERED: DICYCLOMINE HCL LIQUID 20 MG, ALUMINUM HYD/MAG/SIMETHICONE 30 ML, LIDOCAINE VISCOUS 2% ... PO ONE ×3 (17:20)
[2023-02-23] MEDS ORDERED: OMEP40EC23 PO (17:52)
[2023-02-23] MEDS ORDERED: ONDA-188 PO (17:52)
[2023-02-23] MEDS ORDERED: DICYCLOMINE HCL LIQUID 10 MG/5 ML UDC ONE (17:57)
[2023-02-23] MEDS ORDERED: ALUMINUM HYD/MAG/SIMETHICONE 30 ML UDC ONE (17:57)
[2023-02-23] MEDS ORDERED: LORazepam 1 MG TAB PO ONE (18:25)
[2023-02-23] MEDS ORDERED: KETOROLAC 30 MG/ML VIAL IM ONE (18:25)
[2023-02-23] MEDS ORDERED: HALOPERIDOL IM 5 MG/ML VIAL ONE (18:31)
== END 2023-02-23 18:43 | disposition home or self-care (01) ==
LOC: MED 15:19
DX: R11.10 Vomiting, unspecified (principal); F12.90 Cannabis use, unspecified, uncomplicated; K29.70 Gastritis, unspecified, without bleeding; K21.9 Gastro-esophageal reflux disease without esophagitis; Z90.49 Acquired absence of other specified parts of digestive tract; Z98.890 Other specified postprocedural states; Z79.899 Other long term (current) drug therapy; Z79.82 Long term (current) use of aspirin; Z79.1 Long term (current) use of non-steroidal anti-inflammatories (NSAID); Z88.0 Allergy status to penicillin
CPT/HCPCS: 36415; 80053; 83690; 85025; 96372; 99284; J1630; J1885

== ENCOUNTER 2023-03-05 14:14 | Emergency (ER) | payer MEDICAID ==
[~2023-03-05] VITALS: Ht 175.3 cm; Wt 81.6 kg
[~2023-03-05 14:14] MED LIST changes: +OMEP40EC23 PO
[2023-03-05 14:46] VITALS: BP 132/71; PULSE 91; RESP 22; TEMP 98; O2SAT 98
[2023-03-05 15:41] LABS: BASOPHILS % (AUTO) 0.3 % (0.0-2.0); EOSINOPHILS % (AUTO) 0.4 % (0.0-4.0); HEMATOCRIT 41.7 % (36-52); HEMOGLOBIN 14.9 g/dL (12.0-18.0); LYMPHOCYTES # (AUTO) 1.3 K/uL (2.0-11.5); LYMPHOCYTES % (AUTO) 24.4 % (20.5-51.1); MEAN CORPUSCULAR HEMOGLOBIN 32 pg (27-31); MEAN CORPUSCULAR HGB CONC 36 g/dL (33-37); MONOCYTES # (AUTO) 0.3 K/uL (0.8-1.0); NEUTROPHILS # (AUTO) 3.6 K/uL (1.8-7.7); NEUTROPHILS % (AUTO) 68.9 % (42.2-75.2); PLATELET COUNT (AUTO) 321 K/uL (140-450); RED BLOOD CELL COUNT(AUTO) 4.59 MIL/uL (4.20-6.10); RED CELL DISTRIBUTION WIDTH 13.2 % (11.6-13.7); WHITE BLOOD COUNT (AUTO) 5.2 K/uL (4.8-10.8)
[2023-03-05 16:03] LABS: ANION GAP 11.8 (8-16); CARBON DIOXIDE 26.5 mmol/L (21-32); POTASSIUM 3.3 mmol/L (3.5-5.1)
[2023-03-05 16:06] LABS: ALBUMIN 3.7 g/dL (3.4-5.0); BILIRUBIN,DIRECT 0.2 mg/dL (0.0-0.3); TOTAL BILIRUBIN 0.7 mg/dL (0.0-1.0); TOTAL PROTEIN, SERUM 7.7 g/dL (6.4-8.2)
[2023-03-05] MEDS ORDERED: LORazepam 2 MG/ML VIAL IM ONE (17:00)
[2023-03-05] MEDS ORDERED: KETOROLAC 60 MG/2 ML VIAL IM ONE (17:00)
[2023-03-05] MEDS ORDERED: HALOPERIDOL IM 5 MG/ML VIAL IM ONE (17:00)
[2023-03-05] MEDS ORDERED: IBUP-2213 PO (17:37)
[2023-03-05] MEDS ORDERED: ONDA8TAB87 PO (17:37)
[2023-03-05 17:45] VITALS: O2SAT 100
[2023-03-05 17:48] VITALS: BP 128/78; PULSE 91; RESP 16; TEMP 96.5; O2SAT 98
== END 2023-03-05 17:48 | disposition home or self-care (01) ==
LOC: MED 14:14
DX: R10.13 Epigastric pain (principal); R11.2 Nausea with vomiting, unspecified; Z79.899 Other long term (current) drug therapy
CPT/HCPCS: 36415; 80048; 80076; 83690; 85025; 96372; 99284; J1630; J1885; J2060

== ENCOUNTER 2023-03-08 04:20 | Emergency (ER) | payer MEDICAID ==
[~2023-03-08] VITALS: Ht 180.3 cm; Wt 90.7 kg
[~2023-03-08 04:20] MED LIST changes: +IBUP-2213 PO
[2023-03-08 04:34] VITALS: BP 125/86; PULSE 82; RESP 20; TEMP 97; O2SAT 100
[2023-03-08] MEDS ORDERED: FAMOTIDINE 20 MG/2 ML VIAL IVP ONE (05:00)
[2023-03-08] MEDS ORDERED: LORazepam 2 MG/ML VIAL IVP ONE (05:00)
[2023-03-08] MEDS ORDERED: ONDANSETRON 4 MG/2 ML VIAL IVP ONE (05:00)
[2023-03-08] MEDS ORDERED: NACL 0.9% 1,000 ML IV ONE (05:00)
[2023-03-08] MEDS ORDERED: HALOPERIDOL IM 5 MG/ML VIAL IVP ONE (05:00)
== END 2023-03-08 08:18 | disposition left against medical advice (07) ==
LOC: MED 04:20
DX: R11.15 Cyclical vomiting syndrome unrelated to migraine (principal); R10.10 Upper abdominal pain, unspecified; K21.9 Gastro-esophageal reflux disease without esophagitis; Z88.0 Allergy status to penicillin; Z79.899 Other long term (current) drug therapy
CPT/HCPCS: 96361; 96374; 96375; 99284; J1630; J2060; J2405; J3490; J7030

== ENCOUNTER 2023-03-14 00:23 | Emergency (ER) | payer MEDICAID ==
[~2023-03-14] VITALS: Ht 188 cm; Wt 81.6 kg
[2023-03-14 00:30] VITALS: BP 135/78; PULSE 89; RESP 18; TEMP 98.4; O2SAT 98
[2023-03-14] MEDS ORDERED: MAG30ORA10 PO (11:50)
[2023-03-14] MEDS ORDERED: PROC-87 PO (11:50)
== END 2023-03-14 03:00 | disposition left against medical advice (07) ==
LOC: MED 00:23
DX: R10.84 Generalized abdominal pain (principal); Z53.21 Procedure and treatment not carried out due to patient leaving prior to being seen by health care provider
CPT/HCPCS: 99281

== ENCOUNTER 2023-03-14 09:20 | Emergency (ER) | payer MEDICAID ==
[~2023-03-14] VITALS: Ht 188 cm; Wt 81.6 kg
[2023-03-14 09:38] VITALS: BP 106/73; PULSE 92; RESP 18; TEMP 98.3; O2SAT 98
[2023-03-14] MEDS ORDERED: LORazepam 2 MG/ML VIAL IVP ONE (09:55)
[2023-03-14] MEDS ORDERED: DICYCLOMINE HCL LIQUID 20 MG, ALUMINUM HYD/MAG/SIMETHICONE 30 ML, LIDOCAINE VISCOUS 2% ... PO ONE ×3 (09:55)
[2023-03-14] MEDS ORDERED: KETOROLAC 30 MG/ML VIAL IVP ONE (09:55)
[2023-03-14] MEDS ORDERED: diphenhydrAMINE 50 MG/ML VIAL IVP ONE (09:55)
[2023-03-14] MEDS ORDERED: NACL 0.9% 1,000 ML IV ONE ×2 (09:55)
[2023-03-14] MEDS ORDERED: HALOPERIDOL IM 5 MG/ML VIAL IM ONE (09:55)
[2023-03-14] MEDS ORDERED: DICYCLOMINE HCL LIQUID 10 MG/5 ML UDC ONE (10:25)
[2023-03-14] MEDS ORDERED: ALUMINUM HYD/MAG/SIMETHICONE 30 ML UDC ONE ×2 (10:25)
[2023-03-14 10:58] LABS: BARBITURATE, URINE NEGATIVE ng/ml (NEG <=200)
[2023-03-14 11:00] LABS: AMPHETAMINE, URINE NEGATIVE ng/ml (NEG <=1000); BENZODIAZEPINE, URINE NEGATIVE ng/mL (NEG <=200); CANNABINOID, URINE POSITIVE ng/mL (NEG <=50); COCAINE, URINE NEGATIVE ng/mL (NEG <=300); OPIATE, URINE NEGATIVE ng/mL (NEG <=2000); PHENCYCLIDINE SCREEN,URINE NEGATIVE ng/mL (NEG <=25)
[2023-03-14 11:12] VITALS: BP 123/88; PULSE 88; RESP 19; TEMP 98.3; O2SAT 98
[2023-03-14] MEDS ORDERED: MAG30ORA10 PO (11:50)
[2023-03-14] MEDS ORDERED: PROC-87 PO (11:50)
== END 2023-03-14 12:05 | disposition home or self-care (01) ==
LOC: MED 09:20
DX: R10.84 Generalized abdominal pain (principal); R11.10 Vomiting, unspecified; F12.90 Cannabis use, unspecified, uncomplicated; Z79.899 Other long term (current) drug therapy
CPT/HCPCS: 80305; 96361; 96372; 96374; 96375; 99284; J1200; J1630; J1885; J2060; J7030

== ENCOUNTER 2023-03-18 07:42 | Emergency (ER) | payer MEDICAID ==
[~2023-03-18] VITALS: Ht 188 cm; Wt 81.6 kg
[~2023-03-18 07:42] MED LIST changes: +MAG30ORA10 PO
[2023-03-18 07:53] VITALS: BP 104/52; PULSE 88; RESP 18; TEMP 97.5; O2SAT 98
[2023-03-18] MEDS ORDERED: LORazepam 2 MG/ML VIAL IM ONE (08:05)
[2023-03-18] MEDS ORDERED: HALOPERIDOL IM 5 MG/ML VIAL IM ONE (08:05)
[2023-03-18] MEDS ORDERED: KETOROLAC 60 MG/2 ML VIAL IM ONE (08:05)
[2023-03-18] MEDS ORDERED: ONDA8TAB87 PO (09:27)
== END 2023-03-18 09:37 | disposition home or self-care (01) ==
LOC: MED 07:42
DX: R10.84 Generalized abdominal pain (principal); R11.2 Nausea with vomiting, unspecified; K21.9 Gastro-esophageal reflux disease without esophagitis; F12.90 Cannabis use, unspecified, uncomplicated; Z90.49 Acquired absence of other specified parts of digestive tract; Z79.899 Other long term (current) drug therapy; Z79.1 Long term (current) use of non-steroidal anti-inflammatories (NSAID); Z79.82 Long term (current) use of aspirin; Z88.0 Allergy status to penicillin
CPT/HCPCS: 96372; 99284; J1630; J1885; J2060

== ENCOUNTER 2023-03-24 08:49 | Emergency (ER) | payer MEDICAID ==
[~2023-03-24] VITALS: Ht 188 cm; Wt 81.6 kg
[2023-03-24 08:51] VITALS: BP 131/72; PULSE 80; RESP 18; TEMP 98.1; O2SAT 98
[2023-03-24] MEDS: METOCLOPRAMIDE 10 MG/2 ML INJ VIAL IM ONE (09:32)
[2023-03-24] MEDS: ALUMINUM HYD/MAG/SIMETHICONE 30 ML UDC PO ONE (09:33)
[2023-03-24] MEDS: FAMOTIDINE 20 MG TAB PO ONE (09:33)
== END 2023-03-24 09:33 | disposition left against medical advice (07) ==
LOC: MED 08:49
DX: K29.70 Gastritis, unspecified, without bleeding (principal); R11.2 Nausea with vomiting, unspecified; K21.9 Gastro-esophageal reflux disease without esophagitis; Z88.0 Allergy status to penicillin; Z79.899 Other long term (current) drug therapy
CPT/HCPCS: 96372; 99283; J2765

== ENCOUNTER 2023-03-31 10:48 | Emergency (ER) | payer MEDICAID ==
[~2023-03-31] VITALS: Ht 188 cm; Wt 81.6 kg
[2023-03-31 11:02] VITALS: BP 125/81; PULSE 80; RESP 12; TEMP 97; O2SAT 100
[2023-03-31] MEDS ORDERED: diphenhydrAMINE 50 MG/ML VIAL IM ONE (11:35)
[2023-03-31] MEDS ORDERED: HALOPERIDOL IM 5 MG/ML VIAL IM ONE (11:35)
[2023-03-31] MEDS ORDERED: FAMOTIDINE 20 MG TAB PO ONE (11:35)
[2023-03-31] MEDS ORDERED: ALUMINUM HYD/MAG/SIMETHICONE 30 ML UDC PO ONE (11:35)
[2023-04-01] MEDS ORDERED: HALO5TAB21 PO (08:52)
[2023-04-01] MEDS ORDERED: BENZ-315 PO (08:52)
[2023-04-01] MEDS ORDERED: ONDA-188 SL (08:52)
== END 2023-03-31 11:45 | disposition left against medical advice (07) ==
LOC: MED 10:48
DX: R10.9 Unspecified abdominal pain (principal); Z53.21 Procedure and treatment not carried out due to patient leaving prior to being seen by health care provider
CPT/HCPCS: 99281

== ENCOUNTER 2023-04-01 05:59 | Emergency (ER) | payer MEDICAID ==
[~2023-04-01] VITALS: Ht 188 cm; Wt 81.6 kg
[2023-04-01 06:01] VITALS: BP 149/98; PULSE 86; RESP 22; TEMP 96.7; O2SAT 97
[2023-04-01 06:07] VITALS: TEMP 96.7
[2023-04-01 07:02] LABS: BASOPHILS % (AUTO) 0.4 % (0.0-2.0); EOSINOPHILS % (AUTO) 0.5 % (0.0-4.0); HEMATOCRIT 41.6 % (36-52); HEMOGLOBIN 14.7 g/dL (12.0-18.0); LYMPHOCYTES # (AUTO) 1.3 K/uL (2.0-11.5); LYMPHOCYTES % (AUTO) 28.3 % (20.5-51.1); MEAN CORPUSCULAR HEMOGLOBIN 32 pg (27-31); MEAN CORPUSCULAR HGB CONC 35 g/dL (33-37); MONOCYTES # (AUTO) 0.3 K/uL (0.8-1.0); MONOCYTES % (AUTO) 6.9 % (1.7-9.3); NEUTROPHILS # (AUTO) 2.8 K/uL (1.8-7.7); NEUTROPHILS % (AUTO) 63.9 % (42.2-75.2); PLATELET COUNT (AUTO) 219 K/uL (140-450); RED BLOOD CELL COUNT(AUTO) 4.57 MIL/uL (4.20-6.10); RED CELL DISTRIBUTION WIDTH 13.2 % (11.6-13.7); WHITE BLOOD COUNT (AUTO) 4.4 K/uL (4.8-10.8)
[2023-04-01] MEDS: diphenhydrAMINE 50 MG/ML VIAL IVP ONE (07:13)
[2023-04-01] MEDS: HALOPERIDOL IM 5 MG/ML VIAL IVP ONE (07:18)
[2023-04-01 08:05] LABS: ANION GAP 13.4 (8-16); CALCIUM 8.8 mg/dL (8.5-10.1); CREATININE 1.1 mg/dL (0.6-1.3); POTASSIUM 3.4 mmol/L (3.5-5.1)
[2023-04-01 08:24] LABS: ALBUMIN 3.9 g/dL (3.4-5.0); BILIRUBIN,DIRECT 0.1 mg/dL (0.0-0.3); TOTAL BILIRUBIN 0.6 mg/dL (0.0-1.0); TOTAL PROTEIN, SERUM 7.8 g/dL (6.4-8.2)
[2023-04-01] MEDS ORDERED: BENZ-315 PO (08:52)
[2023-04-01] MEDS ORDERED: HALO5TAB21 PO (08:52)
[2023-04-01] MEDS ORDERED: ONDA-188 SL (08:52)
[2023-04-01 09:05] VITALS: BP 122/95; PULSE 92; RESP 18; O2SAT 96
== END 2023-04-01 09:05 | disposition home or self-care (01) ==
LOC: MED 05:59
DX: R11.10 Vomiting, unspecified (principal); R10.84 Generalized abdominal pain; K21.9 Gastro-esophageal reflux disease without esophagitis; Z88.0 Allergy status to penicillin; Z79.899 Other long term (current) drug therapy
CPT/HCPCS: 36415; 80048; 80076; 82150; 83690; 85025; 93005; 96374; 96375; 99284; J1200; J1630

== ENCOUNTER 2023-04-11 22:02 | Emergency (ER) | payer MEDICAID ==
[~2023-04-11 22:02] MED LIST changes: +HALO5TAB21 PO
== END 2023-04-11 22:49 | disposition left against medical advice (07) ==
LOC: MED 22:02
DX: R11.10 Vomiting, unspecified (principal); Z53.21 Procedure and treatment not carried out due to patient leaving prior to being seen by health care provider

== ENCOUNTER 2023-04-13 12:19 | Emergency (ER) | payer MEDICAID ==
[~2023-04-13] VITALS: Ht 188 cm; Wt 81.6 kg
[2023-04-13 12:41] VITALS: BP 143/92; PULSE 92; RESP 16; TEMP 98.1; O2SAT 99
[2023-04-13] MEDS ORDERED: ALUM355S59 PO (13:47)
[2023-04-13] MEDS: ALUMINUM HYD/MAG/SIMETHICONE 30 ML UDC PO ONE (13:56)
[2023-04-13] MEDS: HALOPERIDOL IM 5 MG/ML VIAL IM ONE (13:57)
== END 2023-04-13 14:29 | disposition home or self-care (01) ==
LOC: MED 12:19
DX: R11.2 Nausea with vomiting, unspecified (principal); F12.90 Cannabis use, unspecified, uncomplicated; K21.9 Gastro-esophageal reflux disease without esophagitis; Z79.899 Other long term (current) drug therapy; Z79.82 Long term (current) use of aspirin; Z88.0 Allergy status to penicillin
CPT/HCPCS: 96372; 99283; J1630

== ENCOUNTER 2023-04-26 08:54 | Emergency (ER) | payer MEDICAID ==
[~2023-04-26] VITALS: Ht 188 cm; Wt 83.9 kg
[~2023-04-26 08:54] MED LIST changes: +ALUM355S59 PO
[2023-04-26 09:21] VITALS: BP 131/79; PULSE 89; RESP 18; TEMP 98; O2SAT 100
[2023-04-26] MEDS ORDERED: CLIN300C2 PO (10:28)
[2023-04-26] MEDS ORDERED: MELO-176 PO (10:28)
[2023-04-26] MEDS: HYDROcodone/APAP 5/325 MG 1 TAB TAB PO ONE (10:37)
== END 2023-04-26 10:40 | disposition home or self-care (01) ==
LOC: MED 08:54
DX: K02.9 Dental caries, unspecified (principal); K21.9 Gastro-esophageal reflux disease without esophagitis; Z88.0 Allergy status to penicillin; Z79.899 Other long term (current) drug therapy
CPT/HCPCS: 99283

== ENCOUNTER 2023-05-10 20:50 | Emergency (ER) | payer MEDICAID ==
[~2023-05-10] VITALS: Ht 188 cm; Wt 83.9 kg
[~2023-05-10 20:50] MED LIST changes: +CLIN300C2 PO; +MELO-176 PO
[2023-05-10 21:10] VITALS: BP 120/85; PULSE 90; RESP 16; TEMP 98; TEMP 98.2; O2SAT 97
[2023-05-10 23:02] LABS: BASOPHILS % (AUTO) 0.5 % (0.0-2.0); EOSINOPHILS % (AUTO) 0.1 % (0.0-4.0); HEMATOCRIT 41.5 % (36-52); HEMOGLOBIN 14.6 g/dL (12.0-18.0); LYMPHOCYTES # (AUTO) 1.4 K/uL (2.0-11.5); LYMPHOCYTES % (AUTO) 21.4 % (20.5-51.1); MEAN CORPUSCULAR HEMOGLOBIN 32 pg (27-31); MEAN CORPUSCULAR HGB CONC 35 g/dL (33-37); MEAN CORPUSCULAR VOLUME 92.1 fL (80-94); MONOCYTES # (AUTO) 0.3 K/uL (0.8-1.0); MONOCYTES % (AUTO) 5.2 % (1.7-9.3); NEUTROPHILS # (AUTO) 4.6 K/uL (1.8-7.7); NEUTROPHILS % (AUTO) 72.8 % (42.2-75.2); PLATELET COUNT (AUTO) 217 K/uL (140-450); RED CELL DISTRIBUTION WIDTH 13.2 % (11.6-13.7); WHITE BLOOD COUNT (AUTO) 6.4 K/uL (4.8-10.8)
[2023-05-10] MEDS: NACL 0.9% 1,000 ML IV ONE (23:04)
[2023-05-10] MEDS: PANTOPRAZOLE 40 MG INJ VIAL IVP ONE (23:05)
[2023-05-10 23:22] LABS: ANION GAP 12.5 (8-16); CALCIUM 9.4 mg/dL (8.5-10.1); CARBON DIOXIDE 27.1 mmol/L (21-32); POTASSIUM 3.6 mmol/L (3.5-5.1)
[2023-05-10 23:28] LABS: ALBUMIN 4.4 g/dL (3.4-5.0); BILIRUBIN,DIRECT 0.2 mg/dL (0.0-0.3); TOTAL BILIRUBIN 0.8 mg/dL (0.0-1.0); TOTAL PROTEIN, SERUM 7.4 g/dL (6.4-8.2)
[2023-05-11] MEDS ORDERED: FAMO-92 PO (00:25)
== END 2023-05-11 00:33 | disposition home or self-care (01) ==
LOC: MED 20:50
DX: K29.70 Gastritis, unspecified, without bleeding (principal); K21.9 Gastro-esophageal reflux disease without esophagitis; Z88.0 Allergy status to penicillin; Z79.899 Other long term (current) drug therapy
CPT/HCPCS: 36415; 74176; 80048; 80076; 83690; 85025; 96361; 96374; 99285; C9113; J7030

== ENCOUNTER 2023-05-28 11:12 | Emergency (ER) | payer MEDICAID ==
[~2023-05-28] VITALS: Ht 188 cm; Wt 83.9 kg
[2023-05-28 11:16] VITALS: BP 132/99; PULSE 96; RESP 18; TEMP 97.6; O2SAT 100
== END 2023-05-28 13:06 | disposition left against medical advice (07) ==
LOC: MED 11:12
DX: R11.2 Nausea with vomiting, unspecified (principal); R10.9 Unspecified abdominal pain; Z53.21 Procedure and treatment not carried out due to patient leaving prior to being seen by health care provider
CPT/HCPCS: 99281

== ENCOUNTER 2023-05-28 19:59 | Emergency (ER) | payer MEDICAID ==
[~2023-05-28] VITALS: Ht 188 cm; Wt 83.9 kg
[2023-05-28 20:10] VITALS: BP 108/84; PULSE 86; RESP 17; TEMP 98.3; O2SAT 99
[2023-05-28 21:03] LABS: BASOPHILS % (AUTO) 0.7 % (0.0-2.0); EOSINOPHILS % (AUTO) 0.1 % (0.0-4.0); HEMATOCRIT 43.2 % (36-52); HEMOGLOBIN 15.2 g/dL (12.0-18.0); LYMPHOCYTES # (AUTO) 1.3 K/uL (2.0-11.5); MEAN CORPUSCULAR HEMOGLOBIN 32 pg (27-31); MEAN CORPUSCULAR HGB CONC 35 g/dL (33-37); MONOCYTES # (AUTO) 0.3 K/uL (0.8-1.0); MONOCYTES % (AUTO) 5.5 % (1.7-9.3); NEUTROPHILS # (AUTO) 4.1 K/uL (1.8-7.7); NEUTROPHILS % (AUTO) 70.7 % (42.2-75.2); PLATELET COUNT (AUTO) 245 K/uL (140-450); RED CELL DISTRIBUTION WIDTH 13.7 % (11.6-13.7); WHITE BLOOD COUNT (AUTO) 5.8 K/uL (4.8-10.8)
[2023-05-28 21:10] LABS: ANION GAP 15.7 (8-16); CALCIUM 9.9 mg/dL (8.5-10.1); CARBON DIOXIDE 23.7 mmol/L (21-32); CREATININE 1.1 mg/dL (0.6-1.3); POTASSIUM 3.4 mmol/L (3.5-5.1)
[2023-05-28 21:16] LABS: ALBUMIN 4.5 g/dL (3.4-5.0); BILIRUBIN,DIRECT 0.2 mg/dL (0.0-0.3); TOTAL BILIRUBIN 0.8 mg/dL (0.0-1.0); TOTAL PROTEIN, SERUM 7.5 g/dL (6.4-8.2)
== END 2023-05-28 23:58 | disposition left against medical advice (07) ==
LOC: MED 19:59
DX: R10.84 Generalized abdominal pain (principal); R11.2 Nausea with vomiting, unspecified; Z53.21 Procedure and treatment not carried out due to patient leaving prior to being seen by health care provider
CPT/HCPCS: 36415; 80048; 80076; 83690; 85025; 99281

== ENCOUNTER 2023-06-01 09:04 | Emergency (ER) | payer MEDICAID ==
[~2023-06-01] VITALS: Ht 175.3 cm; Wt 81.6 kg
[2023-06-01 09:12] VITALS: BP 132/84; PULSE 84; RESP 19; TEMP 98.1; O2SAT 100
[2023-06-01 09:44] LABS: BASOPHILS % (AUTO) 0.5 % (0.0-2.0); EOSINOPHILS % (AUTO) 0.2 % (0.0-4.0); HEMATOCRIT 40.4 % (36-52); HEMOGLOBIN 14.3 g/dL (12.0-18.0); LYMPHOCYTES # (AUTO) 1.2 K/uL (2.0-11.5); LYMPHOCYTES % (AUTO) 23.9 % (20.5-51.1); MEAN CORPUSCULAR HEMOGLOBIN 33 pg (27-31); MEAN CORPUSCULAR HGB CONC 36 g/dL (33-37); MEAN CORPUSCULAR VOLUME 92.6 fL (80-94); MONOCYTES # (AUTO) 0.2 K/uL (0.8-1.0); MONOCYTES % (AUTO) 4.9 % (1.7-9.3); NEUTROPHILS # (AUTO) 3.5 K/uL (1.8-7.7); NEUTROPHILS % (AUTO) 70.5 % (42.2-75.2); PLATELET COUNT (AUTO) 214 K/uL (140-450); RED BLOOD CELL COUNT(AUTO) 4.36 MIL/uL (4.20-6.10); RED CELL DISTRIBUTION WIDTH 13.4 % (11.6-13.7)
[2023-06-01 09:59] LABS: ANION GAP 11.3 (8-16); CALCIUM 9.1 mg/dL (8.5-10.1); CARBON DIOXIDE 28.1 mmol/L (21-32); CREATININE 1.1 mg/dL (0.6-1.3); POTASSIUM 3.4 mmol/L (3.5-5.1)
[2023-06-01] MEDS: HALOPERIDOL IM 5 MG/ML VIAL IM ONE (10:04)
[2023-06-01 10:05] LABS: ALBUMIN 4.1 g/dL (3.4-5.0); BILIRUBIN,DIRECT 0.1 mg/dL (0.0-0.3); TOTAL BILIRUBIN 0.6 mg/dL (0.0-1.0); TOTAL PROTEIN, SERUM 6.8 g/dL (6.4-8.2)
[2023-06-01] MEDS: diphenhydrAMINE 50 MG/ML VIAL IM ONE (10:08)
[2023-06-01] MEDS: LORazepam 1 MG TAB PO ONE (10:40)
== END 2023-06-01 10:45 | disposition home or self-care (01) ==
LOC: MED 09:04
DX: R10.9 Unspecified abdominal pain (principal); F12.90 Cannabis use, unspecified, uncomplicated; R11.2 Nausea with vomiting, unspecified; K21.9 Gastro-esophageal reflux disease without esophagitis; Z79.1 Long term (current) use of non-steroidal anti-inflammatories (NSAID); Z79.899 Other long term (current) drug therapy; Z88.0 Allergy status to penicillin
CPT/HCPCS: 36415; 80048; 80076; 83690; 85025; 96372; 99284; J1200; J1630

== ENCOUNTER 2023-06-03 18:05 | Emergency (ER) | payer MEDICAID ==
[~2023-06-03] VITALS: Ht 188 cm; Wt 83.9 kg
[~2023-06-03 18:05] MED LIST changes: +SUCR-34 PO; -SUCR1TAB35 PO
[2023-06-03 18:19] VITALS: BP 120/72; PULSE 74; RESP 18; TEMP 98.6; O2SAT 100
[2023-06-03 19:00] VITALS: BP 120/72; PULSE 74; RESP 18; TEMP 98.6
[2023-06-03 19:20] VITALS: O2SAT 100
[2023-06-03] MEDS: LORazepam 2 MG/ML VIAL IM ONE (21:05)
[2023-06-03] MEDS: HALOPERIDOL IM 5 MG/ML VIAL IM ONE (21:06)
[2023-06-04] MEDS ORDERED: MAG355OR2 PO (09:07)
== END 2023-06-03 21:22 | disposition home or self-care (01) ==
LOC: MED 18:05
DX: R11.2 Nausea with vomiting, unspecified (principal); F12.10 Cannabis abuse, uncomplicated; K21.9 Gastro-esophageal reflux disease without esophagitis; F41.9 Anxiety disorder, unspecified; Z79.899 Other long term (current) drug therapy; Z71.6 Tobacco abuse counseling; Z88.0 Allergy status to penicillin
CPT/HCPCS: 96372; 99284; J1630; J2060

== ENCOUNTER 2023-06-04 07:58 | Emergency (ER) | payer MEDICAID ==
[~2023-06-04] VITALS: Ht 188 cm; Wt 83.9 kg
[2023-06-04 08:05] VITALS: BP 136/84; PULSE 88; RESP 20; TEMP 98; O2SAT 99
[2023-06-04] MEDS: LORazepam 2 MG/ML VIAL IM ONE (09:00)
[2023-06-04] MEDS: HALOPERIDOL IM 5 MG/ML VIAL IM ONE (09:03)
[2023-06-04] MEDS ORDERED: MAG355OR2 PO (09:07)
[2023-06-04] MEDS ORDERED: ALUMINUM HYD/MAG/SIMETHICONE 30 ML UDC ONE (09:16)
[2023-06-04] MEDS ORDERED: DICYCLOMINE HCL LIQUID 10 MG/5 ML UDC ONE (09:16)
[2023-06-04] MEDS: DICYCLOMINE HCL LIQUID 20 MG, ALUMINUM HYD/MAG/SIMETHICONE 30 ML, LIDOCAINE VISCOUS 2% ... PO ONE (09:22)
== END 2023-06-04 10:08 | disposition home or self-care (01) ==
LOC: MED 07:58
DX: R11.2 Nausea with vomiting, unspecified (principal); F12.90 Cannabis use, unspecified, uncomplicated; R10.13 Epigastric pain; Z71.6 Tobacco abuse counseling; K21.9 Gastro-esophageal reflux disease without esophagitis; Z79.899 Other long term (current) drug therapy; Z79.82 Long term (current) use of aspirin; Z88.0 Allergy status to penicillin
CPT/HCPCS: 96372; 99284; J1630; J2060

== ENCOUNTER 2023-06-08 08:19 | Emergency (ER) | payer MEDICAID ==
[~2023-06-08] VITALS: Ht 188 cm; Wt 83.9 kg
[2023-06-08 08:27] VITALS: BP 120/72; PULSE 86; RESP 18; TEMP 97.8; O2SAT 97
[2023-06-08] MEDS: LORazepam 2 MG/ML VIAL IM ONE (09:00)
[2023-06-08] MEDS: HALOPERIDOL IM 5 MG/ML VIAL IM ONE (09:00)
[2023-06-08] MEDS ORDERED: CLIN300C2 PO (09:29)
[2023-06-08] MEDS: ALUMINUM HYD/MAG/SIMETHICONE 30 ML UDC PO ONE (09:38)
[2023-06-08 10:08] VITALS: BP 118/72; PULSE 88; RESP 16; TEMP 98; O2SAT 99
== END 2023-06-08 10:08 | disposition home or self-care (01) ==
LOC: MED 08:19
DX: R11.2 Nausea with vomiting, unspecified (principal); K08.89 Other specified disorders of teeth and supporting structures; K21.9 Gastro-esophageal reflux disease without esophagitis; F12.90 Cannabis use, unspecified, uncomplicated; Z79.899 Other long term (current) drug therapy; Z88.0 Allergy status to penicillin
CPT/HCPCS: 96372; 99284; J1630; J2060

== ENCOUNTER 2023-06-10 06:24 | Emergency (ER) | payer MEDICAID ==
[~2023-06-10] VITALS: Ht 188 cm; Wt 83.9 kg
[2023-06-10 06:35] VITALS: BP 119/77; PULSE 85; RESP 17; TEMP 98.2; O2SAT 98
[2023-06-10 06:47] VITALS: BP 119/77; PULSE 85; RESP 17; TEMP 98.2; O2SAT 98
[2023-06-10] MEDS: ONDANSETRON 4 MG ODT PO ONE (07:02)
[2023-06-10] MEDS: HALOPERIDOL IM 5 MG/ML VIAL IM ONE (07:03)
[2023-06-10] MEDS: FAMOTIDINE 20 MG TAB PO ONE (07:03)
== END 2023-06-10 07:05 | disposition left against medical advice (07) ==
LOC: MED 06:24
DX: F12.188 Cannabis abuse with other cannabis-induced disorder (principal); K21.9 Gastro-esophageal reflux disease without esophagitis; Z79.1 Long term (current) use of non-steroidal anti-inflammatories (NSAID); Z79.899 Other long term (current) drug therapy; Z79.82 Long term (current) use of aspirin; Z88.0 Allergy status to penicillin
CPT/HCPCS: 96372; 99283; J1630; Q0162

== ENCOUNTER 2023-06-22 06:05 | Emergency (ER) | payer MEDICAID ==
[~2023-06-22] VITALS: Ht 185.4 cm; Wt 81.6 kg
[2023-06-22 06:16] VITALS: BP 132/80; PULSE 86; RESP 16; TEMP 98; O2SAT 98
[2023-06-22] MEDS: LORazepam 2 MG/ML VIAL IM ONE (06:27)
[2023-06-22] MEDS: HALOPERIDOL IM 5 MG/ML VIAL IM ONE (06:28)
[2023-06-22 06:50] VITALS: BP 132/80; PULSE 86; RESP 16; TEMP 98; O2SAT 98
== END 2023-06-22 06:50 | disposition left against medical advice (07) ==
LOC: MED 06:05
DX: R11.2 Nausea with vomiting, unspecified (principal); R10.13 Epigastric pain; K21.9 Gastro-esophageal reflux disease without esophagitis; Z79.1 Long term (current) use of non-steroidal anti-inflammatories (NSAID); Z79.2 Long term (current) use of antibiotics; Z79.899 Other long term (current) drug therapy; Z88.0 Allergy status to penicillin
CPT/HCPCS: 96372; 99284; J1630; J2060

== ENCOUNTER 2023-06-28 06:20 | Emergency (ER) | payer MEDICAID ==
[~2023-06-28] VITALS: Ht 188 cm; Wt 81.6 kg
[2023-06-28 06:34] VITALS: BP 107/72; PULSE 90; RESP 20; TEMP 96.2; O2SAT 99
[2023-06-28] MEDS ORDERED: DICYCLOMINE HCL LIQUID 10 MG/5 ML UDC ONE (07:40)
[2023-06-28] MEDS ORDERED: ALUMINUM HYD/MAG/SIMETHICONE 30 ML UDC ONE (07:40)
[2023-06-28] MEDS: LORazepam 1 MG TAB PO ONE (07:51)
[2023-06-28] MEDS ORDERED: PANT40EC PO (07:52)
[2023-06-28] MEDS ORDERED: METO-485 PO (07:52)
[2023-06-28] MEDS: KETOROLAC 60 MG/2 ML VIAL IM ONE (07:53)
[2023-06-28] MEDS: ALUMINUM HYD/MAG/SIMETHICONE 30 ML, DICYCLOMINE HCL LIQUID 20 MG, LIDOCAINE VISCOUS 2% ... PO ONE (07:55)
== END 2023-06-28 08:15 | disposition home or self-care (01) ==
LOC: MED 06:20
DX: K29.70 Gastritis, unspecified, without bleeding (principal); R11.10 Vomiting, unspecified; K21.9 Gastro-esophageal reflux disease without esophagitis; Z79.1 Long term (current) use of non-steroidal anti-inflammatories (NSAID); Z79.899 Other long term (current) drug therapy; Z88.0 Allergy status to penicillin
CPT/HCPCS: 96372; 99283; J1885

== ENCOUNTER 2023-07-08 04:35 | Emergency (ER) | payer MEDICAID ==
[~2023-07-08] VITALS: Ht 188 cm; Wt 86.2 kg
[~2023-07-08 04:35] MED LIST changes: +SUCR-3 PO; -SUCR-34 PO
[2023-07-08 04:44] VITALS: BP 119/97; PULSE 78; RESP 20; TEMP 97.4; O2SAT 100
== END 2023-07-08 06:25 | disposition left against medical advice (07) ==
LOC: MED 04:35
DX: R11.10 Vomiting, unspecified (principal); Z53.21 Procedure and treatment not carried out due to patient leaving prior to being seen by health care provider

== ENCOUNTER 2023-07-15 11:17 | Emergency (ER) | payer MEDICAID ==
[~2023-07-15] VITALS: Ht 188 cm; Wt 79.4 kg
[2023-07-15 11:29] VITALS: BP 115/79; PULSE 87; RESP 20; TEMP 97.9; O2SAT 99
[2023-07-15] MEDS: ALUMINUM HYD/MAG/SIMETHICONE 30 ML UDC PO ONE (13:04)
[2023-07-15] MEDS: PROCHLORPERAZINE 10 MG/2 ML VIAL IM ONE (13:04)
[2023-07-15] MEDS: FAMOTIDINE 20 MG TAB PO ONE (13:05)
== END 2023-07-15 13:06 | disposition left against medical advice (07) ==
LOC: MED 11:17
DX: R11.2 Nausea with vomiting, unspecified (principal); R19.7 Diarrhea, unspecified; R10.13 Epigastric pain; K21.9 Gastro-esophageal reflux disease without esophagitis; F12.90 Cannabis use, unspecified, uncomplicated; Z90.49 Acquired absence of other specified parts of digestive tract; Z79.1 Long term (current) use of non-steroidal anti-inflammatories (NSAID); Z79.899 Other long term (current) drug therapy; Z88.0 Allergy status to penicillin
CPT/HCPCS: 96372; 99283; J0780

== ENCOUNTER 2023-08-24 22:30 | Emergency (ER) | payer MEDICAID ==
[~2023-08-24] VITALS: Ht 185.4 cm; Wt 79.4 kg
[2023-08-24 23:22] VITALS: BP 132/88; PULSE 102; RESP 22; TEMP 98; O2SAT 99
[2023-08-25] MEDS: KETOROLAC 60 MG/2 ML VIAL IM ONE (01:41)
[2023-08-25] MEDS: HALOPERIDOL IM 5 MG/ML VIAL IM ONE (01:41)
[2023-08-25 01:58] VITALS: BP 132/88; PULSE 102; RESP 22; TEMP 98; O2SAT 99
== END 2023-08-25 01:58 | disposition home or self-care (01) ==
LOC: MED 22:30
DX: R10.13 Epigastric pain (principal); R11.2 Nausea with vomiting, unspecified; R03.0 Elevated blood-pressure reading, without diagnosis of hypertension; F12.90 Cannabis use, unspecified, uncomplicated; K21.9 Gastro-esophageal reflux disease without esophagitis; Z90.49 Acquired absence of other specified parts of digestive tract; Z98.890 Other specified postprocedural states; Z79.1 Long term (current) use of non-steroidal anti-inflammatories (NSAID); Z79.2 Long term (current) use of antibiotics; Z79.899 Other long term (current) drug therapy; Z88.0 Allergy status to penicillin
CPT/HCPCS: 96372; 99284; J1630; J1885

== ENCOUNTER 2023-09-18 09:09 | Inpatient (IN) | payer MEDICAID ==
[~2023-09-18] VITALS: Ht 175.3 cm; Wt 81.6 kg
[2023-09-18 09:15] VITALS: BP 160/77; PULSE 84; RESP 24; TEMP 97.7; O2SAT 96
[2023-09-18] MEDS: HALOPERIDOL IM 5 MG/ML VIAL IM ONE (09:38)
[2023-09-18] MEDS: NACL 0.9% 1,000 ML IV SCH ×2 (09:39→15:51)
[2023-09-18 09:41] LABS: BASOPHILS % (AUTO) 0.5 % (0.0-2.0); EOSINOPHILS % (AUTO) 0.1 % (0.0-4.0); HEMATOCRIT 40.9 % (36-52); LYMPHOCYTES # (AUTO) 1.6 K/uL (2.0-11.5); LYMPHOCYTES % (AUTO) 24.5 % (20.5-51.1); MEAN CORPUSCULAR HEMOGLOBIN 32 pg (27-31); MEAN CORPUSCULAR HGB CONC 34 g/dL (33-37); MEAN CORPUSCULAR VOLUME 94.5 fL (80-94); MONOCYTES # (AUTO) 0.3 K/uL (0.8-1.0); MONOCYTES % (AUTO) 5.2 % (1.7-9.3); NEUTROPHILS # (AUTO) 4.5 K/uL (1.8-7.7); NEUTROPHILS % (AUTO) 69.7 % (42.2-75.2); PLATELET COUNT (AUTO) 205 K/uL (140-450); RED BLOOD CELL COUNT(AUTO) 4.33 MIL/uL (4.20-6.10); RED CELL DISTRIBUTION WIDTH 13.3 % (11.6-13.7); WHITE BLOOD COUNT (AUTO) 6.4 K/uL (4.8-10.8)
[2023-09-18 09:45] LABS: APPEARANCE,URINE CLEAR (CLEAR); BILIRUBIN,URINE NEGATIVE (NEGATIVE); BLOOD, URINE TRACE-I (NEGATIVE); COLOR,URINE YELLOW (YELLOW); LEUKOCYTE ESTERASE ,URINE NEGATIVE (NEGATIVE); NITRITE, URINE NEGATIVE (NEGATIVE); PROTEIN,URINE NEGATIVE (NEGATIVE); UGLUCOSE NEGATIVE (NEGATIVE); UROBILINOGEN,URINE 0.2 EU/dL (0.2 - 1)
[2023-09-18 09:50] VITALS: O2SAT 96
[2023-09-18 09:56] LABS: BACTERIA,URINE FEW /HPF (None Seen); SQUAMOUS EPITHELIAL CELL,UR 0-3 (FEW) /LPF (0-3 (FEW)); WBC,URINE 0-5 /HPF (0-5)
[2023-09-18 09:59] LABS: ANION GAP 14.1 (8-16); CALCIUM 9.1 mg/dL (8.5-10.1); CARBON DIOXIDE 23.5 mmol/L (21-32); CREATININE 1.3 mg/dL (0.6-1.3); POTASSIUM 3.6 mmol/L (3.5-5.1)
[2023-09-18 10:02] LABS: ALBUMIN 3.9 g/dL (3.4-5.0); BILIRUBIN,DIRECT 0.1 mg/dL (0.0-0.3); TOTAL BILIRUBIN 0.7 mg/dL (0.0-1.0); TOTAL PROTEIN, SERUM 6.9 g/dL (6.4-8.2)
[2023-09-18] MEDS: diphenhydrAMINE 50 MG/ML VIAL IVP ONE ×2 (10:16→14:04)
[2023-09-18] MEDS: KETOROLAC 30 MG/ML VIAL IVP ONE (10:16)
[2023-09-18] MEDS: METOCLOPRAMIDE 10 MG/2 ML INJ VIAL IVP ONE (10:16)
[2023-09-18] MEDS ORDERED: ALUMINUM HYD/MAG/SIMETHICONE 30 ML UDC ONE (10:25)
[2023-09-18] MEDS ORDERED: DICYCLOMINE HCL LIQUID 10 MG/5 ML UDC ONE (10:25)
[2023-09-18] MEDS: DICYCLOMINE HCL LIQUID 20 MG, ALUMINUM HYD/MAG/SIMETHICONE 30 ML, LIDOCAINE VISCOUS 2% ... PO ONE (10:28)
[2023-09-18] MEDS: LORazepam 2 MG/ML VIAL IVP ONE ×2 (10:32→14:04)
[2023-09-18 10:38] LABS: AMPHETAMINE, URINE NEGATIVE ng/ml (NEG <=1000); BARBITURATE, URINE NEGATIVE ng/ml (NEG <=200); COCAINE, URINE NEGATIVE ng/mL (NEG <=300); OPIATE, URINE NEGATIVE ng/mL (NEG <=2000); PHENCYCLIDINE SCREEN,URINE NEGATIVE ng/mL (NEG <=25)
[2023-09-18 10:40] LABS: BENZODIAZEPINE, URINE POSITIVE ng/mL (NEG <=200); CANNABINOID, URINE POSITIVE ng/mL (NEG <=50)
[2023-09-18] MEDS: MORPHINE SULFATE 4 MG/ML SYR IVP ONE (12:33)
[2023-09-18 12:46] LABS: AMYLASE 48 U/L (25-115); LIPASE 25 U/L (16-77)
[2023-09-18] MEDS ORDERED: ERGO-30 PO (13:43)
[2023-09-18] MEDS ORDERED: guaiFENesin DM 200/20 MG-10 ML 10 ML UDC PO PRN (14:20)
[2023-09-18] MEDS ORDERED: DOCUSATE SODIUM 100 MG GELCAP PO PRN (14:20)
[2023-09-18] MEDS ORDERED: ACETAMINOPHEN 325 MG TAB PO PRN (14:20)
[2023-09-18] MEDS ORDERED: ONDANSETRON 4 MG/2 ML VIAL IM/IVP PRN (14:20)
[2023-09-18] MEDS ORDERED: ZOLPIDEM 5 MG TAB PO PRN (14:20)
[2023-09-18] MEDS ORDERED: POTASSIUM CHLORIDE 10 MEQ TABER PO PRN (14:20)
[2023-09-18 15:08] LABS: INR 1.08 (0.8-1.2); PARTIAL THROMBOPLASTIN TIME 24.1 secs (22-35.6); PROTHROMBIN TIME 11.3 secs (10.8-13.4)
[2023-09-18 16:52] VITALS: PULSE 83; RESP 17; O2SAT 97
[2023-09-18 20:00] VITALS: BP 142/93; PULSE 84; RESP 18; TEMP 98.1; O2SAT 98
[2023-09-18] MEDS ORDERED: MORPHINE SULFATE 2 MG/ML SYR IVP PRN (21:50)
[2023-09-18] MEDS: MORPHINE SULFATE 4 MG/ML SYR ONE (22:40)
[2023-09-19] MEDS: ACETAMINOPHEN 325 MG TAB PO SCH (00:43)
[2023-09-19 04:00] VITALS: BP 137/93; PULSE 81; RESP 18; TEMP 98.4; O2SAT 97
[2023-09-19 06:21] LABS: BASOPHILS % (AUTO) 0.3 % (0.0-2.0); EOSINOPHILS % (AUTO) 0.3 % (0.0-4.0); HEMATOCRIT 41.3 % (36-52); HEMOGLOBIN 14.2 g/dL (12.0-18.0); LYMPHOCYTES # (AUTO) 1.9 K/uL (2.0-11.5); MEAN CORPUSCULAR HEMOGLOBIN 33 pg (27-31); MEAN CORPUSCULAR HGB CONC 34 g/dL (33-37); MEAN CORPUSCULAR VOLUME 94.4 fL (80-94); MONOCYTES # (AUTO) 0.4 K/uL (0.8-1.0); MONOCYTES % (AUTO) 7.2 % (1.7-9.3); NEUTROPHILS # (AUTO) 3.7 K/uL (1.8-7.7); NEUTROPHILS % (AUTO) 61.2 % (42.2-75.2); PLATELET COUNT (AUTO) 182 K/uL (140-450); RED BLOOD CELL COUNT(AUTO) 4.37 MIL/uL (4.20-6.10); RED CELL DISTRIBUTION WIDTH 13.1 % (11.6-13.7); WHITE BLOOD COUNT (AUTO) 6.1 K/uL (4.8-10.8)
[2023-09-19 06:26] LABS: ALBUMIN 3.4 g/dL (3.4-5.0); ANION GAP 14.3 (8-16); CALCIUM 8.7 mg/dL (8.5-10.1); CARBON DIOXIDE 24.5 mmol/L (21-32); CREATININE 1.1 mg/dL (0.6-1.3); POTASSIUM 3.8 mmol/L (3.5-5.1); TOTAL BILIRUBIN 0.8 mg/dL (0.0-1.0); TOTAL PROTEIN, SERUM 6.4 g/dL (6.4-8.2)
[2023-09-19 08:00] VITALS: BP 142/93; PULSE 84; RESP 18; TEMP 98.1; O2SAT 98
[2023-09-19] MEDS: PANTOPRAZOLE 40 MG TABEC PO SCH (08:47)
[2023-09-19 12:00] VITALS: BP 136/91; PULSE 87; RESP 18; TEMP 98; O2SAT 98
[2023-09-19] MEDS: CLONIDINE HYDROCHLORIDE 0.1 MG TAB PO SCH (13:14)
[2023-09-19] MEDS: DEXT 5% / LACT RING 1,000 ML IV SCH (13:14)
[2023-09-19 16:00] VITALS: BP 137/93; PULSE 81; RESP 18; TEMP 98.4; O2SAT 97
[2023-09-19] MEDS: METOCLOPRAMIDE 10 MG/2 ML INJ VIAL IVP SCH (16:30)
[2023-09-19 20:00] VITALS: BP 137/95; PULSE 70; RESP 18; TEMP 98.7; O2SAT 97; O2SAT 98
[2023-09-19] MEDS: AMITRIPTYLINE 25 MG TAB PO SCH (21:40)
[2023-09-20 04:00] VITALS: BP 132/95; PULSE 65; RESP 18; TEMP 97.5; O2SAT 97
[2023-09-20] MEDS: MORPHINE SULFATE 2 MG/ML SYR IVP PRN (05:51)
[2023-09-20 08:00] VITALS: BP 130/88; PULSE 69; RESP 18; TEMP 97.7; O2SAT 97; O2SAT 98
[2023-09-20] MEDS: SENNA 8.6 MG TAB PO SCH (08:03)
[2023-09-20] MEDS: fentaNYL citrate 0.05 MG/ML VIAL ONE (10:02)
[2023-09-20] MEDS: MIDAZOLAM 5 MG/5 ML VIAL ONE (10:02)
[2023-09-20] MEDS: diphenhydrAMINE 50 MG/ML VIAL ONE (10:02)
[2023-09-20] MEDS: MIDAZOLAM 2 MG/2 ML VIAL IVP ONE (10:32)
[2023-09-20] MEDS: fentaNYL citrate 0.05 MG/ML VIAL IVP ONE (10:33)
[2023-09-20 10:59] VITALS: BP 118/80; PULSE 80; RESP 18; TEMP 97.7
[2023-09-20] MEDS ORDERED: FENTANYL C 0.1 MG/HR PATCH TD SCH (11:00)
[2023-09-20 11:20] LABS: BASOPHILS % (AUTO) 0.4 % (0.0-2.0); EOSINOPHILS % (AUTO) 0.7 % (0.0-4.0); HEMATOCRIT 41.5 % (36-52); HEMOGLOBIN 14.3 g/dL (12.0-18.0); LYMPHOCYTES # (AUTO) 1.6 K/uL (2.0-11.5); LYMPHOCYTES % (AUTO) 45.1 % (20.5-51.1); MEAN CORPUSCULAR HEMOGLOBIN 32 pg (27-31); MEAN CORPUSCULAR HGB CONC 35 g/dL (33-37); MEAN CORPUSCULAR VOLUME 93.7 fL (80-94); MONOCYTES # (AUTO) 0.4 K/uL (0.8-1.0); MONOCYTES % (AUTO) 10.3 % (1.7-9.3); NEUTROPHILS # (AUTO) 1.6 K/uL (1.8-7.7); NEUTROPHILS % (AUTO) 43.5 % (42.2-75.2); PLATELET COUNT (AUTO) 191 K/uL (140-450); RED BLOOD CELL COUNT(AUTO) 4.43 MIL/uL (4.20-6.10); RED CELL DISTRIBUTION WIDTH 13.1 % (11.6-13.7); WHITE BLOOD COUNT (AUTO) 3.6 K/uL (4.8-10.8)
[2023-09-20] MEDS ORDERED: fentaNYL citrate 0.05 MG/ML VIAL IVP SCH (11:33)
[2023-09-20 11:45] LABS: ALBUMIN 3.5 g/dL (3.4-5.0); ANION GAP 10.8 (8-16); CALCIUM 8.9 mg/dL (8.5-10.1); CARBON DIOXIDE 26.6 mmol/L (21-32); CREATININE 1.1 mg/dL (0.6-1.3); POTASSIUM 3.4 mmol/L (3.5-5.1); TOTAL BILIRUBIN 0.6 mg/dL (0.0-1.0); TOTAL PROTEIN, SERUM 6.4 g/dL (6.4-8.2)
[2023-09-20] MEDS ORDERED: ONDA-188 SL (11:49)
[2023-09-20] MEDS ORDERED: FAMO-90 PO (11:49)
[2023-09-20] MEDS ORDERED: HALO1TAB99 PO (11:49)
[2023-09-20] MEDS ORDERED: ATI.5 PO (11:49)
[2023-09-20 12:00] VITALS: BP 118/80; PULSE 69; PULSE 80; RESP 18; TEMP 207.9; O2SAT 98
== END 2023-09-20 14:10 | disposition home or self-care (01) | DRG 249 ==
LOC: MED 09:09 → MMU 14:25 → MTU 15:21
PROVIDERS: ADMIT Student in an Organized Health Care Education/Training Program; ATTEND Student in an Organized Health Care Education/Training Program
PROC: 0DB68ZX Excision of Stomach, Via Natural or Artificial Opening Endoscopic, Diagnostic (ICD-10-PCS; principal; 2023-09-20 10:50)
DX: R11.2 Nausea with vomiting, unspecified (principal); F12.929 Cannabis use, unspecified with intoxication, unspecified; K21.9 Gastro-esophageal reflux disease without esophagitis; Z79.899 Other long term (current) drug therapy; Y92.9 Unspecified place or not applicable
CPT/HCPCS: 36415; 71045; 80048; 80053; 80076; 80305; 81001; 82150; 83690; 85025; 85610; 85730; 86677; 87081; 96361; 96372; 96374; 96375; 99285; J1200; J1630; J1885; J2060; J2250; J2270; J2405; J2765; J3010

== ENCOUNTER 2023-09-23 07:58 | Emergency (ER) | payer MEDICAID ==
[~2023-09-23] VITALS: Ht 188 cm; Wt 81.6 kg
[~2023-09-23 07:58] MED LIST changes: -ACET-10509 PO; -ALUM355S59 PO; -ASPI-1822 PO; -ATA25 PO; +ATI.5 PO; -BEN10 PO; -BENZ-315 PO; -CLIN300C2 PO; -FAMO-92 PO; -HAL5 PO; +HALO1TAB99 PO; -HALO5TAB21 PO; -IBUP-1842 PO; -IBUP-2213 PO; -MAG30ORA10 PO; -MAG355OR2 PO; -MELO-176 PO; -METO-485 PO; -METO-486 PO; -OMEP40EC23 PO; -ONDA-188 PO; -ONDA8TAB87 PO; -PROC-87 PO; -SIME80TA41 PO; -SUCR-3 PO
[2023-09-23 08:15] VITALS: BP 127/87; PULSE 86; RESP 16; TEMP 98; O2SAT 99
[2023-09-23] MEDS: ALUMINUM HYD/MAG/SIMETHICONE 30 ML UDC PO ONE (09:28)
[2023-09-23] MEDS: diphenhydrAMINE 50 MG/ML VIAL IM ONE (09:29)
[2023-09-23] MEDS: HALOPERIDOL IM 5 MG/ML VIAL IM ONE (09:32)
== END 2023-09-23 10:44 | disposition home or self-care (01) ==
LOC: MED 07:58
DX: R10.13 Epigastric pain (principal); R10.10 Upper abdominal pain, unspecified; K21.9 Gastro-esophageal reflux disease without esophagitis; F12.90 Cannabis use, unspecified, uncomplicated; Z79.899 Other long term (current) drug therapy; Z88.0 Allergy status to penicillin
CPT/HCPCS: 71045; 96372; 99284; J1200; J1630

== ENCOUNTER 2023-10-09 10:59 | Emergency (ER) | payer MEDICAID ==
[~2023-10-09] VITALS: Ht 188 cm; Wt 81.6 kg
[2023-10-09 11:11] VITALS: BP 134/98; PULSE 78; RESP 24; TEMP 98.5; O2SAT 99
[2023-10-09] MEDS: ALUMINUM HYD/MAG/SIMETHICONE 30 ML UDC PO ONE (11:29)
[2023-10-09] MEDS: LORazepam 2 MG/ML VIAL IM ONE (11:32)
[2023-10-09] MEDS: HALOPERIDOL IM 5 MG/ML VIAL IM ONE (11:34)
== END 2023-10-09 12:02 | disposition home or self-care (01) ==
LOC: MED 10:59
DX: R11.2 Nausea with vomiting, unspecified (principal); F12.90 Cannabis use, unspecified, uncomplicated; K21.9 Gastro-esophageal reflux disease without esophagitis; Z79.899 Other long term (current) drug therapy; Z88.0 Allergy status to penicillin
CPT/HCPCS: 96372; 99284; J1630; J2060

== ENCOUNTER 2023-11-10 01:03 | Emergency (ER) | payer MEDICAID ==
[~2023-11-10] VITALS: Ht 188 cm; Wt 77.1 kg
[2023-11-10 01:32] VITALS: BP 133/92; PULSE 76; RESP 20; TEMP 98.1; O2SAT 100
[2023-11-10] MEDS: NACL 0.9% 1,000 ML IV ONE (02:28)
[2023-11-10 02:29] VITALS: O2SAT 100
[2023-11-10] MEDS: diphenhydrAMINE 50 MG/ML VIAL IVP ONE ×2 (02:32→03:50)
[2023-11-10] MEDS: MORPHINE SULFATE 4 MG/ML SYR IVP ONE (03:35)
[2023-11-10] MEDS ORDERED: HALOPERIDOL IM 5 MG/ML VIAL ONE (03:38)
[2023-11-10] MEDS ORDERED: HALOPERIDOL IM 5 MG/ML VIAL IVP ONE (03:40)
[2023-11-10] MEDS: ONDANSETRON 4 MG/2 ML VIAL IVP ONE (03:43)
[2023-11-10] MEDS: HALOPERIDOL IM 5 MG/ML VIAL IVP ONE (03:46)
[2023-11-10 04:11] LABS: BARBITURATE, URINE NEGATIVE ng/ml (NEG <=200)
[2023-11-10 04:12] LABS: AMPHETAMINE, URINE NEGATIVE ng/ml (NEG <=1000); BENZODIAZEPINE, URINE NEGATIVE ng/mL (NEG <=200); CANNABINOID, URINE POSITIVE ng/mL (NEG <=50); COCAINE, URINE NEGATIVE ng/mL (NEG <=300); OPIATE, URINE POSITIVE ng/mL (NEG <=2000); PHENCYCLIDINE SCREEN,URINE NEGATIVE ng/mL (NEG <=25)
== END 2023-11-10 04:58 | disposition home or self-care (01) ==
LOC: MED 01:03
DX: R11.2 Nausea with vomiting, unspecified (principal); F12.90 Cannabis use, unspecified, uncomplicated; Z79.899 Other long term (current) drug therapy; Z88.0 Allergy status to penicillin
CPT/HCPCS: 80305; 96361; 96374; 96375; 96376; 99284; J1200; J1630; J2270; J2405; J7030